=== PATIENT | female | born 1945 | race Caucasian/White ===

== ENCOUNTER → 2017-10-16 07:00 | Outpatient (CLI) | payer OTHER, SELFPAY ==
[2017-10-16 07:56] LABS: Alanine Aminotransferase 27 IU/L (9-52); Albumin Globulin Ratio 1.4 (1.0-2.8); Alkaline Phosphatase 41 U/L (38-126); Aspartate Aminotransferase 25 IU/L (14-36); BUN Creatinine Ratio 22.9 (6-22); Bilirubin Total 0.9 mg/dL (0.2-1.3); Blood Urea Nitrogen 16 mg/dL (7-17); Calcium 9.5 mg/dL (8.4-10.2); Carbon Dioxide 30 mmol/L (22-32); Chloride 101 mmol/L (98-107); Cholesterol 174 mg/dL (140-199); Estimated Glomerular Filt Rate > 60.0 mL/min (>60); Globulin 2.9 g/dL (1.7-4.1); Glucose 106 mg/dL (80-110); HDL Cholesterol 74 mg/dL (40-60); HEMOLYSIS < 15 (0-50); LDL Cholesterol Calculated 89 mg/dL (<100); Potassium 3.6 mmol/L (3.4-5.1); Sodium 141 mmol/L (137-145); Total Protein 6.9 g/dL (6.3-8.2); Triglycerides 54 mg/dL (35-150)
== END ==
PROVIDERS: PCP Internal Medicine; Visit Provider Internal Medicine
DX: E78.2 Mixed hyperlipidemia (principal)
CPT/HCPCS: 36415; 80053; 80061

== ENCOUNTER → 2017-12-11 10:00 | Outpatient (CLI) | payer OTHER, SELFPAY ==
--- NOTE | 2017-12-11 | DI.MG.S_ITS ---
BILATERAL DIGITAL SCREENING MAMMOGRAM 3D/2D WITH CAD: 12/11/2017 CLINICAL: Routine screening. Comparison is made to exams dated: 11/27/2016 mammogram, 11/26/2015 mammogram, and 11/24/2014 mammogram - [facility]. The tissue of both breasts is heterogeneously dense. This may lower the sensitivity of mammography. Current study was also evaluated with a Computer Aided Detection (CAD) system. There is a biopsy clip in the left breast. No significant masses, calcifications, or other findings are seen in either breast. There has been no significant interval change. IMPRESSION: NEGATIVE There is no mammographic evidence of malignancy. A 1 year screening mammogram is recommended. This exam was interpreted at Station ID: [id number]. NOTE: For mammograms, a report in lay terms will be sent to the patient. Approximately 15% of breast malignancies will not be visualized mammographically. In the management of a palpable breast mass, a negative mammogram must not discourage biopsy of a clinically suspicious lesion. Electronically Signed By: Guy osborn/tacho:12/11/2017 16:37:23 letter sent: Normal Exam ACR BI-RADS Category 1: Negative [id number]
== END ==
PROVIDERS: Family Provider Internal Medicine; PCP Internal Medicine; Visit Provider Internal Medicine
DX: Z12.31 Encounter for screening mammogram for malignant neoplasm of breast (principal)
CPT/HCPCS: 77063; 77067

== ENCOUNTER → 2018-01-31 11:13 | Outpatient (CLI) | payer OTHER, SELFPAY ==
[2018-01-31 11:26] LABS: Bacteria Urine None Seen; RBC Urine None Seen (0-5/HPF); WBC Urine None Seen (0-5/HPF)
[2018-01-31 12:19] LABS: Appearance Urine UA CLEAR; Bilirubin Urine UA NEGATIVE (NEGATIVE); Color Urine UA YELLOW; Glucose Urine UA NEGATIVE (Normal); Ketones Urine UA NEGATIVE (NEGATIVE); Leukocyte Esterase Urine UA NEGATIVE (NEGATIVE); Nitrite Urine UA Negative (Negative); Occult Blood Urine UA TRACE-LYSED (Negative); Protein Urine UA NEGATIVE (Negative); Urobilinogen Urine UA 0.2 E.U./dL (0.2)
[2018-01-31 12:35] LABS: Culture Indicated Urine Cult Not Indicated
== END ==
PROVIDERS: PCP Internal Medicine; Visit Provider Internal Medicine
DX: R30.0 Dysuria (principal)
CPT/HCPCS: 81001

== ENCOUNTER → 2018-04-12 08:03 | Outpatient (CLI) | payer OTHER, SELFPAY ==
[2018-04-12 09:30] LABS: Alanine Aminotransferase 29 IU/L (9-52); Albumin 4.1 g/dL (3.5-5.0); Albumin Globulin Ratio 1.4 (1.0-2.8); Alkaline Phosphatase 38 U/L (38-126); Aspartate Aminotransferase 26 IU/L (14-36); BUN Creatinine Ratio 33.3 (6-22); Bilirubin Total 0.8 mg/dL (0.2-1.3); Blood Urea Nitrogen 20 mg/dL (7-17); Calcium 9.3 mg/dL (8.4-10.2); Carbon Dioxide 32 mmol/L (22-32); Chloride 101 mmol/L (98-107); Cholesterol 169 mg/dL (140-199); Estimated Glomerular Filt Rate > 60.0 mL/min (>60); Globulin 2.9 g/dL (1.7-4.1); Glucose 98 mg/dL (80-110); HDL Cholesterol 75 mg/dL (40-60); HEMOLYSIS < 15 (0-50); LDL Cholesterol Calculated 84 mg/dL (<100); Potassium 3.8 mmol/L (3.4-5.1); Sodium 142 mmol/L (137-145); Triglycerides 49 mg/dL (35-150)
[2018-04-12 09:36] LABS: Free T4, Direct Thyroxine 1.09 ng/dL (0.78-2.19)
[2018-04-12 09:50] LABS: Thyroid Stimulating Hormone 1.55 uIU/mL (0.47-4.68)
== END ==
PROVIDERS: PCP Internal Medicine; Visit Provider Internal Medicine
DX: E03.9 Hypothyroidism, unspecified (principal); E78.2 Mixed hyperlipidemia; I10 Essential (primary) hypertension
CPT/HCPCS: 36415; 80053; 80061; 84439; 84443

== ENCOUNTER 2018-06-05 08:15 | Day surgery (SDC) | payer OTHER, SELFPAY ==
--- NOTE | 2018-06-01 13:50 | PM.PREOP ---
Pre-operative Note Interval Note History & Physical reviewed/Exam performed by Physician: Yes Changes to H&P: No
--- NOTE | 2018-06-05 07:57 | PM.OP.1 ---
Operative Date/Time/Diagnoses Date of procedure: 06/05/18 Time of procedure: 09:45 Procedure & Clinicians Procedure: Preoperative diagnoses: 1. Right nuclear sclerotic cataract 2. Astigmatism which is to be corrected with a toric intraocular lens implant. Postoperative diagnoses: 1. Cataract removal with phacoemulsification with toric posterior chamber intraocular lens implant placed. Procedure: Phacoemulsification with posterior chamber toric intraocular lens implant. Surgeon: Krystina Ocasio MD Complications: None Specimen: None Implant: [id number] +15.0 [place] 096 Blood loss: None Anesthesia: Retrobulbar with monitored standby Description of procedure: Patient presents with a complaint of decreased vision due to cataract which is affecting activities of daily living. The patient wants surgery to improve vision and astigmatism. The patient was taken to the operating room and proparacaine drops placed. Indelible ink mas were placed at the 90 and 180 degree meridian. The patient was placed on the operating room table and given IV sedation. A retrobulbar block insert consisting of 6 cc of 2% xylocaine without epinephrine mixed half and half with 0.5% Marcaine with 1 cc of hyaluronidase added is placed between the medial and lateral 1/3 of the inferior orbital rim. Lid akinesia is obtain with 1% xylocaine with epinephrine infiltrated along the lid margin. The eye is manually massaged for 30 sec, prepped using Betadine solution, and draped in the usual sterile fashion. Temporal approach was made, a 1 mm side-port incision was made 90? from the proposed corneal wound. Phenylephrine 1.5% mixed with 1% xylocaine 0.2 cc was placed into the anterior chamber. Viscoat followed by Kenyatta was then placed. A 2.6 mm clear incision with a 2.6 mm blade was placed at the 170 degree meridian. A 360 degree capsulorrhexis style capsulotomy was then performed with a cystitome needle on a Healon. Hydrodelineation and hydrodissection were performed. The phacoemulsification unit is introduced, and sculpting used to groove the central lens. It is then removed in chopping mode. Epi nucleus is removed with epinuclear mode and irrigation aspiration was used to remove the peripheral cortex. The posterior capsule is polished. The intraocular lens is selected, inspected, power confirmed, and placed in the posterior chamber at the desired meridian of 96 degrees. The pupil was not constricted. The wound was stromally hydrated and tested for leaks, there was none and it was left sutureless. Vigamox 0.1 cc was placed into the anterior chamber. Kenalog 0.2 cc was placed in the superior subconjunctival space. A drop of antibiotic and was placed and the eye was patched and shielded. The patient was stable and returned to the recovery room in excellent condition. Dictated by: Krystina Ocasio MD Copy to: [facility] Same procedure as scheduled: Yes
--- NOTE | 2018-06-05 08:00 | P.OP_ITS ---
Operative Date/Time/Diagnoses Date of procedure: 06/05/18 Time of procedure: 09:45 Procedure & Clinicians Procedure: Preoperative diagnoses: 1. Right nuclear sclerotic cataract 2. Astigmatism which is to be corrected with a toric intraocular lens implant. Postoperative diagnoses: 1. Cataract removal with phacoemulsification with toric posterior chamber intraocular lens implant placed. Procedure: Phacoemulsification with posterior chamber toric intraocular lens implant. Surgeon: Krystina Ocasio MD Complications: None Specimen: None Implant: [id number] +15.0 [place] 096 Blood loss: None Anesthesia: Retrobulbar with monitored standby Description of procedure: Patient presents with a complaint of decreased vision due to cataract which is affecting activities of daily living. The patient wants surgery to improve vision and astigmatism. The patient was taken to the operating room and proparacaine drops placed. Indelible ink mas were placed at the 90 and 180 degree meridian. The patient was placed on the operating room table and given IV sedation. A retrobulbar block insert consisting of 6 cc of 2% xylocaine without epinephrine mixed half and half with 0.5% Marcaine with 1 cc of hyaluronidase added is placed between the medial and lateral 1/3 of the inferior orbital rim. Lid akinesia is obtain with 1% xylocaine with epinephrine infiltrated along the lid margin. The eye is manually massaged for 30 sec, prepped using Betadine solution, and draped in the usual sterile fashion. Temporal approach was made, a 1 mm side-port incision was made 90? from the proposed corneal wound. Phenylephrine 1.5% mixed with 1% xylocaine 0.2 cc was p laced into the anterior chamber. Viscoat followed by Kenyatta was then placed. A 2.6 mm clear incision with a 2.6 mm blade was placed at the 170 degree meridian. A 360 degree capsulorrhexis style capsulotomy was then performed with a cystitome needle on a Healon. Hydrodelineation and hydrodissection were performed. The phacoemulsification unit is introduced, and sculpting used to groove the central lens. It is then removed in chopping mode. Epi nucleus is removed with epinuclear mode and irrigation aspiration was used to remove the peripheral cortex. The posterior capsule is polished. The intraocular lens is selected, inspected, power confirmed, and placed in the posterior chamber at the desired meridian of 96 degrees. The pupil was not constricted. The wound was stromally hydrated and tested for leaks, there was none and it was left sutureless. Vigamox 0.1 cc was placed into the anterior chamber. Kenalog 0.2 cc was placed in the superior subconjunctival space. A drop of antibiotic and was placed and the eye was patched and shielded. The patient was stable and returned to the recovery room in excellent condition. Dictated by: Krystina Ocasio MD Copy to: [facility] Same procedure as scheduled: Yes
[2018-06-05] MEDS: PROPARACAINE 0.5% OPHTH SOL 2 DROPS EYE-OP ×2 (08:57→09:32)
[2018-06-05] MEDS: CATARACT EYE COMPOUND (10 DROPS/SYRINGE) 3 DROPS EYE-OP (09:00)
[2018-06-05 09:01] VITALS: BP 139/74; PULSE 77; RESP 16; TEMP 36.3; O2SAT 987; BMI 22.3
[2018-06-05] MEDS: LIDOCAINE 1% W/EPI INJ 20 ML INJ (09:41)
[2018-06-05] MEDS: CHONDROIDTIN/SOD HYALURONATE 1.05 ML SYRINGE INTRAOCULA (09:58)
[2018-06-05] MEDS: BALANCED SALT IRRIG SOLN NO.2 15 ML IRR (09:58)
[2018-06-05] MEDS: HYALURONATE SODIUM 10 MG/ML SYRINGE INJ (09:59)
[2018-06-05] MEDS: NEOMYCIN/POLY/DEX OPHTH OINT 1 APPLIC EYE-RIGHT (10:00)
[2018-06-05] MEDS: MOXIFLOXACIN OPHTH DROPS 3 ML BOTTLE 2 DROPS INJ (10:00)
[2018-06-05] MEDS: PHENYLEPHRINE/LIDOCAINE VIAL (OR) 0.2 ML EYE-OP (10:01)
[2018-06-05] MEDS: TRIAMCINOLONE 50 MG/5 ML VIAL INJ (10:01)
[2018-06-05] MEDS: BALANCED SALT IRRIG SOLN NO.2 500 ML, EPINEPHrine 1 MG IRR (10:02)
[2018-06-05] MEDS: LIDOCAINE 2% 4 ML, BUPIVACAINE 0.5% (PF) 4 ML, HYALURONIDASE 150 UNIT INJ (10:03)
[2018-06-05] MEDS: OFLOXACIN 0.3% OPHTH 5 ML 2 DROPS EYE-RIGHT (10:15)
[2018-06-05 10:20] VITALS: BP 150/79; PULSE 76; RESP 24; TEMP 36.5; O2SAT 100
== END 2018-06-05 10:45 | disposition home or self-care (01) ==
PROVIDERS: Family Provider Internal Medicine; PCP Internal Medicine; Visit Provider Ophthalmology
PROC: (CPT 66984; principal; 2018-06-05 09:45)
DX: H25.11 Age-related nuclear cataract, right eye (principal); H52.201 Unspecified astigmatism, right eye; I10 Essential (primary) hypertension
CPT/HCPCS: 66984; J0171; J2704; J3301; J3470; V2787

== ENCOUNTER 2018-06-19 09:25 | Day surgery (SDC) | payer OTHER, SELFPAY ==
--- NOTE | 2018-06-15 14:47 | PM.PREOP ---
Pre-operative Note Interval Note History & Physical reviewed/Exam performed by Physician: Yes Changes to H&P: No
--- NOTE | 2018-06-15 14:50 | P.OP_ITS ---
Operative Date/Time/Diagnoses Date of procedure: 06/19/18 Time of procedure: 10:45 Procedure & Clinicians Procedure: Preoperative diagnoses: 1. Nuclear sclerotic cataract 2. Astigmatism which is to be corrected with a toric intraocular lens implant. Postoperative diagnoses: 1. Cataract removal with phacoemulsification with toric posterior chamber intraocular lens implant placed. Procedure: Phacoemulsification with posterior chamber toric intraocular lens i mplant. Surgeon: Krystina Ocasio MD Complications: None Specimen: None Implant: [id number]+15.5 [place] 067 Blood loss: None Anesthesia: Retrobulbar with monitored standby Description of procedure: Patient presents with a complaint of decreased vision due to cataract which is affecting activities of daily living. The patient wants surgery to improve vision and astigmatism. The patient was taken to the operating room and proparacaine drops placed. Indelible ink mas were placed at the 90 and 180 degree meridian. The patient was placed on the operating room table and given IV sedation. A retrobulbar block consisting of 6 cc of 2% xylocaine without epinephrine mixed half and half with 0.5% Marcaine with 1 cc of hyaluronidase added is placed between the medial and lateral 1/3 of the inferior orbital rim. Lid akinesia is obtain with 1% xylocaine with epinephrine infiltrated along the lid margin. The eye is manually massaged for 30 sec, prepped using Betadine solution, and draped in the usual sterile fashion. Temporal approach was made, a 1 mm side-port incision was made 90? from the proposed corneal wound. Phenylephrine 1.5% mixed with 1% xylocaine 0.2 cc was placed into the anterior chamber. Viscoat followed by Kenyatta was then placed. A 2.6 mm clear incision with a 2.6 mm blade was placed at the 170 degree meridian. A 360 degree capsulorrhexis style capsulotomy was then performed with a cystitome needle on a Healon. Hydrodelineation and hydrodissection were performed. The phacoemulsification unit is introduced, and sculpting used to groove the central lens. It is then removed in chopping mode. Epi nucleus is removed with epinuclear mode and irrigation aspiration was used to remove the peripheral cortex. The posterior capsule is polished. The intraocular lens is selected, inspected, power confirmed, and placed in the posterior chamber at the desired meridian of 067?. The pupil was not constricted. The wound was stromally hydrated and tested for leaks, there was none and it was left sutureless. Vigamox 0.1 cc was placed into the anterior chamber. Kenalog 0.2 cc was placed in the superior subconjunctival space. A bandage contact lens was placed to smooth the sideport incision. A drop of antibiotic and was placed and the eye was patched and shielded. The patient was stable and returned to the recovery room in excellent condition. Dictated by: Krystina Ocasio MD Copy to: [facility]
[2018-06-19] MEDS: PROPARACAINE 0.5% OPHTH SOL 2 DROPS EYE-OP (10:05)
[2018-06-19 10:14] VITALS: BP 173/76; PULSE 56; RESP 15; TEMP 36.4; O2SAT 99; BMI 22.6
[2018-06-19] MEDS: CATARACT EYE COMPOUND (10 DROPS/SYRINGE) 3 DROPS EYE-OP (10:21)
[2018-06-19] MEDS: MOXIFLOXACIN OPHTH DROPS 3 ML BOTTLE 2 DROPS INJ (10:59)
[2018-06-19] MEDS: PHENYLEPHRINE/LIDOCAINE VIAL (OR) 0.2 ML EYE-OP (10:59)
[2018-06-19] MEDS: HYALURONATE SODIUM 10 MG/ML SYRINGE INJ (11:00)
[2018-06-19] MEDS: TRIAMCINOLONE 50 MG/5 ML VIAL INJ (11:00)
[2018-06-19] MEDS: NEOMYCIN/POLY/DEX OPHTH OINT 1 APPLIC EYE-LEFT (11:00)
[2018-06-19] MEDS: BALANCED SALT IRRIG SOLN NO.2 15 ML IRR (11:00)
[2018-06-19] MEDS: CHONDROIDTIN/SOD HYALURONATE 1.05 ML SYRINGE INTRAOCULA (11:00)
[2018-06-19] MEDS: BALANCED SALT IRRIG SOLN NO.2 500 ML, EPINEPHrine 1 MG IRR (11:01)
[2018-06-19] MEDS: LIDOCAINE 1% W/EPI INJ 20 ML INJ (11:01)
[2018-06-19] MEDS: LIDOCAINE 2% 4 ML, BUPIVACAINE 0.5% (PF) 4 ML, HYALURONIDASE 150 UNIT INJ (11:02)
[2018-06-19] MEDS: OFLOXACIN 0.3% OPHTH 5 ML 2 DROPS EYE-LEFT (11:21)
[2018-06-19 11:29] VITALS: BP 157/76; PULSE 67; RESP 15; TEMP 36.6; O2SAT 100
== END 2018-06-19 11:41 | disposition home or self-care (01) ==
LOC: OR 09:25
PROVIDERS: PCP Internal Medicine; Visit Provider Ophthalmology
DX: H25.12 Age-related nuclear cataract, left eye (principal); H52.202 Unspecified astigmatism, left eye
CPT/HCPCS: J0171; J2704; J3301; J3470; V2787

== ENCOUNTER 2018-10-24 08:26 | Emergency (ER) | payer OTHER, SELFPAY ==
[2018-10-24 08:37] VITALS: BP 195/77; PULSE 72; RESP 20; TEMP 36.4; O2SAT 99
--- NOTE | 2018-10-24 08:40 | ED.GENADULT ---
HPI - General Adult General Chief complaint: Hypertension Stated complaint: HIGH BLOOD PRESSURE Time Seen by Provider: 10/24/18 08:32 Source: patient Mode of arrival: ambulatory Limitations: no limitations History of Present Illness HPI narrative: Patient is a 73-year-old female who presents with hypertension. She says she thought that her blood pressure was high because she was a little dizzy. She had no chest pain heart palpitations or shortness of breath. She says she normally just takes hydrochlorothiazide her blood pressure is typically controlled with a systolic of 130. However she ate sees and shrimp with a lot of salt on it last night. She took her blood pressure few times at home today systolic always over 180 with a high being 200. She came to the emergency department. Still not feeling great. Denies any weakness numbness tingling Related Data Home Medications Medication Instructions Recorded Confirmed omega 3-zny-xya-fish oil [Fish Oil] 1,000 mg PO DAILY #0 04/05/11 10/24/18 multivitamin with minerals 1 tab PO DAILY #0 04/14/16 10/24/18 [Hair,Skin and Nails] Metamucil 1 cap PO Q OTHER DAY 10/24/18 10/24/18 alendronate 70 mg PO QWEEK 10/24/18 10/24/18 atorvastatin [Lipitor] 20 mg PO BEDTIME 10/24/18 10/24/18 calcium vxy-ybv-A6-Zn-helicopter utility aircrewman-caprice 1 tab PO DAILY 10/24/18 10/24/18 hydrochlorothiazide 25 mg PO DAILY 10/24/18 10/24/18 levothyroxine [Synthroid] 50 mcg PO DAILY 10/24/18 10/24/18 Allergies Allergy/AdvReac Type Severity Reaction Status Date / Time prochlorperazine Allergy Mild DYSTONIA Verified 06/19/18 10:07 ciprofloxacin AdvReac Unknown JOINT PAIN Verified 06/19/18 10:07 Review of Systems Review of Systems ROS Unobtainable: All systems reviewed & are unremarkable except as noted in HPI and below Constitutional Denies chills, Denies fever(s), Denies lethargy and Denies weakness Eyes Denies change in vision, Denies eye discharge, Denies irritation and Denies loss of vision ENT Ears, Nose, Mouth, and Throat: Denies change in voice, Reports dizziness, Denies neck pain and Denies sore throat Cardiovascular Denies chest pain, Denies irregular heart rhythm, Denies lightheadedness, Denies palpitations, Denies dyspnea, Denies dyspnea on exertion and Denies orthopnea Respiratory Denies cough, Denies dyspnea, Denies dyspnea on exertion and Denies wheezing Gastrointestinal Gastrointestinal: Denies abdominal pain, Denies change in bowel habits, Denies diarrhea, Denies nausea and Denies vomiting Musculoskeletal Denies neck pain Integumentary/Breasts Denies pruritus, Denies erythema, Denies rash and Denies wounds Neurologic Reports dizziness, Denies loss of vision and Denies weakness Endocrine Denies palpitations Allergic/Immunologic Denies wheezing [facility] Medical History Essential hypertension (Chronic) Acquired hypothyroidism (Chronic 04/13/15) Mixed hyperlipidemia (Chronic 04/05/11) 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) Mitral valve prolapse (Chronic 04/05/11) History of adenomatous polyp of colon (Inactive 04/05/11) Diverticulosis of large intestine (Chronic) Hearing loss (Chronic ~2012) Osteopenia (Chronic ~1995) Rosacea (Chronic ~1986) Vision disorder (Chronic) Acne (Resolved ~1956) Chicken pox (Resolved) Measles (Resolved) Rubella (Resolved) Thyroid nodule (Resolved ~1996) History of pre-eclampsia (Inactive) Surgical History Anesthesia (Resolved) Fractures (Resolved ~1981) History of thyroidectomy (~2002) Status post delivery (~1969) Status post delivery (~1970) Family History Father Rheumatoid arthritis Mother No problems noted. Social History household members: none Smoking Status: Never smoker Family History Father Rheumatoid arthritis Mother No problems noted. Social History household members: none Smoking Status: Never smoker Exam Initial Vital Signs Initial Vital Signs: Vital Signs Temperature 97.6 F 10/24/18 08:37 Pulse Rate 72 10/24/18 08:37 Respiratory Rate 20 10/24/18 08:37 Blood Pressure 195/77 H 10/24/18 08:37 Pulse Oximetry 99 10/24/18 08:37 GENERAL: Well-appearing, well-nourished and in no acute distress. HEENT: Head atraumatic,EOMI, pupils reactive, face symmetric, moist mucous membranes CARDIOVASCULAR: Regular rate and rhythm without murmurs, rubs or gallops. RESPIRATORY: Breath sounds equal bilaterally, no wheezes rales or rhonchi. ABDOMEN: Soft, nontender. Normoactive bowel sounds all 4 quadrants. No guarding or rebound. EXTREMITIES: Normal range of motion, no clubbing or edema. Neurovascularly intact NEUROLOGICAL: Alert and oriented x4.Normal gait and speech. Cranial nerves II through XII grossly intact. Childcare Attendant strength equal bilaterally SKIN: Warm, dry, no laceration, no petechiae, no rashes or lesions. Course Orders Ordered: ED Orders 10/24/18 09:30 Complete Blood Count AUTO DIFF Stat Comprehensive Metabolic Panel Stat Lipase Stat Troponin & CK Cardiac Panel Stat Vital Signs - 8 hr 10/24/18 08:37 10/24/18 09:00 10/24/18 09:30 Temperature 97.6 F Pulse Rate 72 59 L 59 L Respiratory Rate 20 18 18 Blood Pressure 195/77 H Blood Pressure [Right Arm] 175/70 H 163/65 H Pulse Oximetry 99 97 99 10/24/18 10:21 10/24/18 11:05 10/24/18 11:10 Temperature Pulse Rate 61 57 L 57 L Respiratory Rate 15 18 18 Blood Pressure 178/66 H Blood Pressure [Right Arm] 163/65 H 178/66 H Pulse Oximetry 100 99 99 Medical Decision Making Lab Data Lab results reviewed: Yes I reviewed the patient's lab results. Result diagrams: 10/24/18 09:30 10/24/18 09:30 Lab Results 10/24/18 10/24/18 Range/Units 09:30 09:30 WBC 4.9 (4.5-11.0) X10^3/uL RBC 4.32 (4.0-5.2) X10^6/uL Hgb 14.0 (12.0-16.0) g/dL Hct 41.2 (36-46) % MCV 95.3 (80-100) fL MCH 32.4 (26-34) PG MCHC 34.0 (30-36) % RDW 13.7 (11.6-14.8) % Plt Count 268 (150-400) X10^3/uL Neut % (Auto) 65.4 (50-75) % Lymph % (Auto) 22.9 L (25-40) % Summers % (Auto) 10.3 (3-14) % Eos % (Auto) 0.9 L (2-4) % Baso % (Auto) 0.5 (0-2) % Neut # (Auto) 3200 (8077-5663) /uL Lymph # (Auto) 1100 (2025-2763) /uL Summers # (Auto) 500 (0-900) /uL Eos # (Auto) 0 (0-450) /uL Baso # (Auto) 0 (0-100) /uL Sodium 139 (137-145) mmol/L Potassium 4.0 (3.4-5.1) mmol/L Chloride 102 (98-107) mmol/L Carbon Dioxide 31 (22-32) mmol/L BUN 17 (7-17) mg/dL Creatinine 0.50 L (0.52-1.04) mg/dL Estimated GFR > 60.0 (>60) mL/min BUN/Creatinine Ratio 34.0 H (6-22) Glucose 128 H (80-110) mg/dL Calcium 9.0 (8.4-10.2) mg/dL Total Bilirubin 0.7 (0.2-1.3) mg/dL AST 21 (14-36) IU/L ALT 14 (9-52) IU/L Alkaline Phosphatase 42 (38-126) U/L Total Creatine Kinase 76 (30-135) U/L CK-MB (CK-2) TNP CK-MB (CK-2) Rel Index TNP Troponin I < 0.012 (0.01-0.034) ng/mL Total Protein 7.1 (6.3-8.2) g/dL Albumin 4.1 (3.5-5.0) g/dL Globulin 3.0 (1.7-4.1) g/dL Albumin/Globulin Ratio 1.4 (1.0-2.8) Lipase 58 (23-300) U/L Urine Dip Bedside Urine Glucose Negative Bedside Urine Bilirubin - Negative Bedside Urine Ketone - Negative Urine Specific [place] 1.015 Bedside Urine Occult Blood - Negative Bedside Urine pH 6.5 Bedside Urine Protein - Negative Bedside Urine Urobilinogen - Negative Bedside Urine Nitrite - Negative Bedside Urine Leukocytes - Negative Esterase Point of care testing: Urine Dip Bedside Urine Glucose Negative Bedside Urine Bilirubin - Negative Bedside Urine Ketone - Negative Urine Specific [place] 1.015 Bedside Urine Occult Blood - Negative Bedside Urine pH 6.5 Bedside Urine Protein - Negative Bedside Urine Urobilinogen - Negative Bedside Urine Nitrite - Negative Bedside Urine Leukocytes - Negative Esterase ECG Data Attestation: I personally reviewed and interpreted this ECG as follows: Prior ECG tracings: not available for review Interpretation: Normal sinus rhythm rate [address] changes AL interval 219 MDM Narrative Medical decision making narrative: Patient is noted to have PVCs on monitor. They are intermittent she is asymptomatic. I did discuss this with her. Recommending following up with her PCP. Her blood pressure has come down without any sort of intervention. I recommend that she recorded contract for blood pressure home. Discharge Plan Departure Patient Disposition: Home Clinical Impression: Asymptomatic PVCs Hypertension Qualifiers: Hypertension type: essential hypertension Qualified Code(s): I10 - Essential (primary) hypertension Discharge Date/Time: 10/24/18 11:10 Interventions: ED Discharge Assessment Last Done: 10/24/18 11:10 Instructions: Premature Ventricular Beats, DI for High Blood Pressure Activity Restrictions/Additional Instructions: *You have been diagnosed with hypertension, PVC *What to do: At this time her blood pressure has come down in the emergency department to an acceptable level. I recommend that you continue to monitor at home. I recommend checking it 1-2 times daily same time every day either 1st thing in the morning or last thing before bed. Your blood pressure medication may need to be adjusted this is something that year PCP should do. *Continue to take medications as directed *Follow up with your primary care provider in 2-3 days *Return to ER if you should have dizziness lightheadedness chest pain heart palpitations or any new, worsening or concerning symptoms Prescriptions: No Action omega 6-kiy-ccr-fish oil [Fish Oil] 1,000 MG capsule 1,000 mg PO DAILY Qty: 0 RF: 0 multivitamin with minerals [Hair,Skin and Nails] Tablet 1 tab PO DAILY Qty: 0 RF: 0 alendronate 70 mg Tablet 70 mg PO QWEEK RF: 0 atorvastatin [Lipitor] 20 mg tablet 20 mg PO BEDTIME RF: 0 levothyroxine [Synthroid] 50 mcg tablet 50 mcg PO DAILY RF: 0 hydrochlorothiazide 25 mg tablet 25 mg PO DAILY RF: 0 Metamucil 1 cap PO Q OTHER DAY RF: 0 calcium otq-dbn-H5-Zn-helicopter utility aircrewman-caprice 1 tab PO DAILY RF: 0 Referrals: Marbin Grove MD [Primary Care Provider] -
[2018-10-24 09:00] VITALS: BP 175/70; PULSE 59; RESP 18; O2SAT 97
--- NOTE | 2018-10-24 09:25 | ED_ITS ---
HPI - General Adult General Chief complaint: Hypertension Stated complaint: HIGH BLOOD PRESSURE Time Seen by Provider: 10/24/18 08:32 Source: patient Mode of arrival: ambulatory Limitations: no limitations History of Present Illness HPI narrative: Patient is a 73-year-old female who presents with hypertension. She says she thought that her blood pressure was high because she was a little dizzy. She had no chest pain heart palpitations or shortness of breath. She says she normally just takes hydrochlorothiazide her blood pressure is typically controlled with a systolic of 130. However she ate sees and shrimp with a lot of salt on it last night. She took her blood pressure few times at home today systolic always over 180 with a high being 200. She came to the emergency department. Still not feeling great. Denies any weakness numbness tingling Related Data Home Medications Medication Instructions Recorded Confirmed omega 5-hfl-ndv-fish oil [Fish Oil] 1,000 mg PO DAILY #0 04/05/11 10/24/18 multivitamin with minerals 1 tab PO DAILY #0 04/14/16 10/24/18 [Hair,Skin and Nails] Metamucil 1 cap PO Q OTHER DAY 10/24/18 10/24/18 alendronate 70 mg PO QWEEK 10/24/18 10/24/18 atorvastatin [Lipitor] 20 mg PO BEDTIME 10/24/18 10/24/18 calcium nfx-qts-U3-Zn-copper miner blasting-caprice 1 tab PO DAILY 10/24/18 10/24/18 hydrochlorothiazide 25 mg PO DAILY 10/24/18 10/24/18 levothyroxine [Synthroid] 50 mcg PO DAILY 10/24/18 10/24/18 Allergies Allergy/AdvReac Type Severity Reaction Status Date / Time prochlorperazine Allergy Mild DYSTONIA Verified 06/19/18 10:07 ciprofloxacin AdvReac Unknown JOINT PAIN Verified 06/19/18 10:07 Review of Systems Review of Systems ROS Unobtainable: All systems reviewed & are unremarkable except as noted in HPI and below Constitutional Denies chills, Denies fever(s), Denies lethargy and Denies weakness Eyes Denies change in vision, Denies eye discharge, Denies irritation and Denies loss of vision ENT Ears, Nose, Mouth, and Throat: Denies change in voice, Reports dizziness, Denies neck pain and Denies sore throat Cardiovascular Denies chest pain, Denies irregular heart rhythm, Denies lightheadedness, Denies palpitations, Denies dyspnea, Denies dyspnea on exertion and Denies orthopnea Respiratory Denies cough, Denies dyspnea, Denies dyspnea on exertion and Denies wheezing Gastrointestinal Gastrointestinal: Denies abdominal pain, Denies change in bowel habits, Denies diarrhea, Denies nausea and Denies vomiting Musculoskeletal Denies neck pain Integumentary/Breasts Denies pruritus, Denies erythema, Denies rash and Denies wounds Neurologic Reports dizziness, Denies loss of vision and Denies weakness Endocrine Denies palpitations Allergic/Immunologic Denies wheezing [facility] Medical History Essential hypertension (Chronic) Acquired hypothyroidism (Chronic 04/13/15) Mixed hyperlipidemia (Chronic 04/05/11) 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) Mitral valve prolapse (Chronic 04/05/11) History of adenomatous polyp of colon (Inactive 04/05/11) Diverticulosis of large intestine (Chronic) Hearing loss (Chronic ~2012) Osteopenia (Chronic ~1995) Rosacea (Chronic ~1986) Vision disorder (Chronic) Acne (Resolved ~1956) Chicken pox (Resolved) Measles (Resolved) Rubella (Resolved) Thyroid nodule (Resolved ~1996) History of pre-eclampsia (Inactive) Surgical History Anesthesia (Resolved) Fractures (Resolved ~1981) History of thyroidectomy (~2002) Status post delivery (~1969) Status post delivery (~1970) Family History Father Rheumatoid arthritis Mother No problems noted. Social History household members: none Smoking Status: Never smoker Family History Father Rheumatoid arthritis Mother No problems noted. Social History household members: none Smoking Status: Never smoker Exam Initial Vital Signs Initial Vital Signs: Vital Signs Temperature 97.6 F 10/24/18 08:37 Pulse Rate 72 10/24/18 08:37 Respiratory Rate 20 10/24/18 08:37 Blood Pressure 195/77 H 10/24/18 08:37 Pulse Oximetry 99 10/24/18 08:37 GENERAL: Well-appearing, well-nourished and in no acute distress. HEENT: Head atraumatic,EOMI, pupils reactive, face symmetric, moist mucous membranes CARDIOVASCULAR: Regular rate and rhythm without murmurs, rubs or gallops. RESPIRATORY: Breath sounds equal bilaterally, no wheezes rales or rhonchi. ABDOMEN: Soft, nontender. Normoactive bowel sounds all 4 quadrants. No guarding or rebound. EXTREMITIES: Normal range of motion, no clubbing or edema. Neurovascularly intact NEUROLOGICAL: Alert and oriented x4.Normal gait and speech. Cranial nerves II through XII grossly intact. Command And Control Specialist strength equal bilaterally SKIN: Warm, dry, no laceration, no petechiae, no rashes or lesions. Course Orders Ordered: ED Orders 10/24/18 09:30 Complete Blood Count AUTO DIFF Stat Comprehensive Metabolic Panel Stat Lipase Stat Troponin & CK Cardiac Panel Stat Vital Signs - 8 hr 10/24/18 08:37 10/24/18 09:00 10/24/18 09:30 Temperature 97.6 F Pulse Rate 72 59 L 59 L Respiratory Rate 20 18 18 Blood Pressure 195/77 H Blood Pressure [Right Arm] 175/70 H 163/65 H Pulse Oximetry 99 97 99 10/24/18 10:21 10/24/18 11:05 10/24/18 11:10 Temperature Pulse Rate 61 57 L 57 L Respiratory Rate 15 18 18 Blood Pressure 178/66 H Blood Pressure [Right Arm] 163/65 H 178/66 H Pulse Oximetry 100 99 99 Medical Decision Making Lab Data Lab results reviewed: Yes I reviewed the patient's lab results. Result diagrams: 10/24/18 09:30 10/24/18 09:30 Lab Results 10/24/18 10/24/18 Range/Units 09:30 09:30 WBC 4.9 (4.5-11.0) X10^3/uL RBC 4.32 (4.0-5.2) X10^6/uL Hgb 14.0 (12.0-16.0) g/dL Hct 41.2 (36-46) % MCV 95.3 (80-100) fL MCH 32.4 (26-34) PG MCHC 34.0 (30-36) % RDW 13.7 (11.6-14.8) % Plt Count 268 (150-400) X10^3/uL Neut % (Auto) 65.4 (50-75) % Lymph % (Auto) 22.9 L (25-40) % [place] % (Auto) 10.3 (3-14) % Eos % (Auto) 0.9 L (2-4) % Baso % (Auto) 0.5 (0-2) % Neut # (Auto) 3200 (9943-4982) /uL Lymph # (Auto) 1100 (7640-9582) /uL [place] # (Auto) 500 (0-900) /uL Eos # (Auto) 0 (0-450) /uL Baso # (Auto) 0 (0-100) /uL Sodium 139 (137-145) mmol/L Potassium 4.0 (3.4-5.1) mmol/L Chloride 102 (98-107) mmol/L Carbon Dioxide 31 (22-32) mmol/L BUN 17 (7-17) mg/dL Creatinine 0.50 L (0.52-1.04) mg/dL Estimated GFR > 60.0 (>60) mL/min BUN/Creatinine Ratio 34.0 H (6-22) Glucose 128 H (80-110) mg/dL Calcium 9.0 (8.4-10.2) mg/dL Total Bilirubin 0.7 (0.2-1.3) mg/dL AST 21 (14-36) IU/L ALT 14 (9-52) IU/L Alkaline Phosphatase 42 (38-126) U/L Total Creatine Kinase 76 (30-135) U/L CK-MB (CK-2) TNP CK-MB (CK-2) Rel Index TNP Troponin I < 0.012 (0.01-0.034) ng/mL Total Protein 7.1 (6.3-8.2) g/dL Albumin 4.1 (3.5-5.0) g/dL Globulin 3.0 (1.7-4.1) g/dL Albumin/Globulin Ratio 1.4 (1.0-2.8) Lipase 58 (23-300) U/L Urine Dip Bedside Urine Glucose Negative Bedside Urine Bilirubin - Negative Bedside Urine Ketone - Negative Urine Specific [place] 1.015 Bedside Urine Occult Blood - Negative Bedside Urine pH 6.5 Bedside Urine Protein - Negative Bedside Urine Urobilinogen - Negative Bedside Urine Nitrite - Negative Bedside Urine Leukocytes - Negative Esterase Point of care testing: Urine Dip Bedside Urine Glucose Negative Bedside Urine Bilirubin - Negative Bedside Urine Ketone - Negative Urine Specific [place] 1.015 Bedside Urine Occult Blood - Negative Bedside Urine pH 6.5 Bedside Urine Protein - Negative Bedside Urine Urobilinogen - Negative Bedside Urine Nitrite - Negative Bedside Urine Leukocytes - Negative Esterase ECG Data Attestation: I personally reviewed and interpreted this ECG as follows: Prior ECG tracings: not available for review Interpretation: Normal sinus rhythm rate [address] changes NV interval 219 MDM Narrative Medical decision making narrative: Patient is noted to have PVCs on monitor. They are intermittent she is asymptomatic. I did discuss this with her. Recomm ending following up with her PCP. Her blood pressure has come down without any sort of intervention. I recommend that she recorded contract for blood pressure home. Discharge Plan Departure Patient Disposition: Home Clinical Impression: Asymptomatic PVCs Hypertension Qualifiers: Hypertension type: essential hypertension Qualified Code(s): I10 - Essential (primary) hypertension Discharge Date/Time: 10/24/18 11:10 Interventions: ED Discharge Assessment Last Done: 10/24/18 11:10 Instructions: Premature Ventricular Beats, DI for High Blood Pressure Activity Restrictions/Additional Instructions: *You have been diagnosed with hypertension, PVC *What to do: At this time her blood pressure has come down in the emergency department to an acceptable level. I recommend that you continue to monitor at home. I recommend checking it 1-2 times daily same time every day either 1st thing in the morning or last thing before bed. Your blood pressure medication may need to be adjusted this is something that year PCP should do. *Continue to take medications as directed *Follow up with your primary care provider in 2-3 days *Return to ER if you should have dizziness lightheadedness chest pain heart palpitations or any new, worsening or concerning symptoms Prescriptions: No Action omega 8-hic-aeb-fish oil [Fish Oil] 1,000 MG capsule 1,000 mg PO DAILY Qty: 0 RF: 0 multivitamin with minerals [Hair,Skin and Nails] Tablet 1 tab PO DAILY Qty: 0 RF: 0 alendronate 70 mg Tablet 70 mg PO QWEEK RF: 0 atorvastatin [Lipitor] 20 mg tablet 20 mg PO BEDTIME RF: 0 levothyroxine [Synthroid] 50 mcg tablet 50 mcg PO DAILY RF: 0 hydrochlorothiazide 25 mg tablet 25 mg PO DAILY RF: 0 Metamucil 1 cap PO Q OTHER DAY RF: 0 calcium zmf-ohw-B1-Zn-copper miner blasting-caprice 1 tab PO DAILY RF: 0 Referrals: Marbin Grove MD [Primary Care Provider] -
[2018-10-24 09:30] VITALS: BP 163/65; PULSE 59; RESP 18; O2SAT 99
[2018-10-24 09:37] LABS: Add Manual Diff / Slide Review NO; Basophils Absolute Auto 0 /uL (0-100); Basophils Percent Auto 0.5 % (0-2); Eosinophils Absolute Auto 0 /uL (0-450); Eosinophils Percent Auto 0.9 % (2-4); Hematocrit 41.2 % (36-46); Lymphocytes Absolute Auto 1100 /uL (1100-4500); Lymphocytes Percent Auto 22.9 % (25-40); Mean Corpuscular Hemoglobin 32.4 PG (26-34); Mean Corpuscular Volume 95.3 fL (80-100); Monocytes Absolute Auto 500 /uL (0-900); Monocytes Percent Auto 10.3 % (3-14); Neutrophils Absolute Auto 3200 /uL (1500-7000); Neutrophils Percent Auto 65.4 % (50-75); Platelet Count 268 X10^3/uL (150-400); Red Blood Cell Count 4.32 X10^6/uL (4.0-5.2); Red Cell Distribution Width 13.7 % (11.6-14.8); White Blood Cell Count 4.9 X10^3/uL (4.5-11.0)
[2018-10-24 09:49] LABS: Alanine Aminotransferase 14 IU/L (9-52); Albumin 4.1 g/dL (3.5-5.0); Albumin Globulin Ratio 1.4 (1.0-2.8); Alkaline Phosphatase 42 U/L (38-126); Aspartate Aminotransferase 21 IU/L (14-36); Bilirubin Total 0.7 mg/dL (0.2-1.3); Blood Urea Nitrogen 17 mg/dL (7-17); Carbon Dioxide 31 mmol/L (22-32); Chloride 102 mmol/L (98-107); Creatine Kinase 76 U/L (30-135); Estimated Glomerular Filt Rate > 60.0 mL/min (>60); Glucose 128 mg/dL (80-110); HEMOLYSIS < 15 (0-50); Lipase 58 U/L (23-300); Sodium 139 mmol/L (137-145); Total Protein 7.1 g/dL (6.3-8.2)
[2018-10-24 10:01] LABS: Troponin I < 0.012 ng/mL (0.01-0.034)
[2018-10-24 10:21] VITALS: BP 163/65; PULSE 61; RESP 15; O2SAT 100
[2018-10-24 11:05] VITALS: BP 178/66; PULSE 57; RESP 18; O2SAT 99
[2018-10-24 11:10] VITALS: BP 178/66; PULSE 57; RESP 18; O2SAT 99
== END 2018-10-24 11:10 | disposition home or self-care (01) ==
PROVIDERS: Emergency Provider Emergency Medicine; PCP Internal Medicine
DX: I49.3 Ventricular premature depolarization (principal); I10 Essential (primary) hypertension
CPT/HCPCS: 36591; 80053; 81003; 82550; 83690; 84484; 85025; 93005; 93010; 99283; 99284

== ENCOUNTER → 2018-12-19 10:52 | Outpatient (CLI) | payer OTHER, SELFPAY ==
--- NOTE | 2018-12-19 | DI.MG.S_ITS ---
BILATERAL DIGITAL SCREENING MAMMOGRAM 3D/2D WITH CAD: 12/19/2018 CLINICAL: Routine screening. Comparison is made to exams dated: 12/11/2017 mammogram, 11/27/2016 mammogram, and 11/26/2015 mammogram - [facility]. There are scattered fibroglandular elements in both breasts. Current study was also evaluated with a Computer Aided Detection (CAD) system. There is a benign biopsy clip in the left breast. No significant masses, calcifications, or other findings are seen in either breast. There has been no significant interval change. IMPRESSION: NEGATIVE There is no mammographic evidence of malignancy. A 1 year screening mammogram is recommended. This exam was interpreted at Station ID: [id number]. NOTE: For mammograms, a report in lay terms will be sent to the patient. Approximately 15% of breast malignancies will not be visualized mammographically. In the management of a palpable breast mass, a negative mammogram must not discourage biopsy of a clinically suspicious lesion. Electronically Signed By: Tim crawford/tacho:12/19/2018 12:15:43 letter sent: Normal Exam ACR BI-RADS Category 1: Negative [id number]
== END ==
PROVIDERS: PCP Internal Medicine; Visit Provider Internal Medicine
DX: Z12.31 Encounter for screening mammogram for malignant neoplasm of breast (principal)
CPT/HCPCS: 77063; 77067

== ENCOUNTER → 2019-05-01 07:03 | Outpatient (CLI) | payer MEDICARE, SELFPAY ==
[2019-05-01 08:57] LABS: Alanine Aminotransferase 16 IU/L (<35); Albumin Globulin Ratio 1.5 (1.0-2.8); Alkaline Phosphatase 44 U/L (38-126); Aspartate Aminotransferase 24 IU/L (14-36); BUN Creatinine Ratio 35.7 (6-22); Bilirubin Total 0.5 mg/dL (0.2-1.3); Blood Urea Nitrogen 25 mg/dL (7-17); Calcium 9.3 mg/dL (8.4-10.2); Carbon Dioxide 32 mmol/L (22-32); Chloride 103 mmol/L (98-107); Cholesterol 183 mg/dL (140-199); Estimated Glomerular Filt Rate > 60.0 mL/min (>60); Globulin 2.6 g/dL (1.7-4.1); Glucose 102 mg/dL (80-110); HDL Cholesterol 68 mg/dL (40-60); HEMOLYSIS < 15 (0-50); LDL Cholesterol Calculated 106 mg/dL (<100); Sodium 141 mmol/L (137-145); Total Protein 6.6 g/dL (6.3-8.2); Triglycerides 43 mg/dL (35-150)
[2019-05-01 09:14] LABS: Free T4, Direct Thyroxine 1.23 ng/dL (0.78-2.19)
[2019-05-01 09:28] LABS: Thyroid Stimulating Hormone 1.91 uIU/mL (0.47-4.68)
== END ==
PROVIDERS: PCP Internal Medicine; Visit Provider Internal Medicine
DX: E03.9 Hypothyroidism, unspecified (principal); E78.2 Mixed hyperlipidemia; I10 Essential (primary) hypertension
CPT/HCPCS: 36415; 80053; 80061; 84439; 84443

== ENCOUNTER 2019-06-08 15:22 | Emergency (ER) | payer MEDICARE, SELFPAY ==
[2019-06-08 15:30] VITALS: BP 178/90; PULSE 90; RESP 20; TEMP 36.8; O2SAT 99
[2019-06-08 15:56] LABS: Appearance Urine UA SL CLOUDY; Bilirubin Urine UA NEGATIVE (NEGATIVE); Glucose Urine UA NEGATIVE (Negative); Ketones Urine UA NEGATIVE (NEGATIVE); Leukocyte Esterase Urine UA 3+ (NEGATIVE); Nitrite Urine UA NEGATIVE (Negative); Occult Blood Urine UA 3+ (Negative); Protein Urine UA 1+ (Negative); Specific Gravity Urine UA <=1.005 (1.000-1.035); Urobilinogen Urine UA 0.2 E.U./dL (0.2)
[2019-06-08 15:58] LABS: Color Urine UA OTHER; pH Urine UA 7.5 (4.5-8.0)
[2019-06-08 16:10] LABS: Bacteria Urine Moderate (10-30); Culture Indicated Urine Specimen Cultured; RBC Urine 30-100/HPF (0-5/HPF); WBC Urine >100/HPF (0-5/HPF)
--- NOTE | 2019-06-08 16:14 | ED.GENADULT ---
HPI - General Adult General Chief complaint: Hypertension Stated complaint: High Blood Pressure Time Seen by Provider: 06/08/19 15:35 Source: patient Mode of arrival: Ambulatory Limitations: no limitations History of Present Illness HPI narrative: 74-year-old female nonsmoker with history of hyperlipidemia and hypertension presents with a chief complaint of dysuria, frequency and urgency for the past few days in the absence of back pain, fever, chills nor nausea or vomiting. Additionally, and perhaps more important to the patient is some brief dizziness prior to her arrival associated with elevated blood pressure in the 200s. She states that she takes hydrochlorothiazide for her blood pressure and has not missed any doses. She states that she has had episodes in the past which are similar and her primary care provider suggest that she is highly sensitive to the blood pressure affects of high sodium intake. She does admit to some dietary indiscretions over the past few days. She is otherwise asymptomatic here in the emergency department and denies any headache or blurred vision or any focal neurologic findings chest pain or other. Onset (ago): minute(s) Treatments prior to arrival: none Related Data Home Medications Medication Instructions Recorded Confirmed omega 6-aid-vob-fish oil [Fish Oil] 1,000 mg PO DAILY #0 04/05/11 05/06/19 Metamucil 1 cap PO Q OTHER DAY 10/24/18 05/06/19 atorvastatin [Lipitor] 20 mg PO BEDTIME 10/24/18 05/06/19 calcium hjr-ucq-R7-Zn-picture copyist-caprice 1 tab PO DAILY 10/24/18 05/06/19 Previous Rx's Medication Instructions Recorded hydrochlorothiazide 25 mg tablet 25 mg PO DAILY #90 tab 01/09/19 alendronate 70 mg tablet 70 mg PO QWEEK #12 tab 04/15/19 levothyroxine 50 mcg tablet See Rx Instructions .ROUTE 04/15/19 .COMPLEX #90 tablet cephalexin [Keflex] 500 mg PO QID 5 Days #20 cap 06/08/19 Allergies Allergy/AdvReac Type Severity Reaction Status Date / Time prochlorperazine Allergy Mild DYSTONIA Verified 05/06/19 09:27 ciprofloxacin AdvReac Unknown JOINT PAIN Verified 05/06/19 09:27 Review of Systems Constitutional Constitutional: Denies chills, Denies fatigue, Denies fever(s), Denies frequent falls, Denies lethargy and Denies weakness Eyes Eyes: Denies change in vision, Denies eye discharge, Denies irritation and Denies loss of vision ENT Ears, Nose, Mouth, and Throat: Denies change in voice, Reports dizziness, Denies neck pain, Denies sore throat and Denies throat swelling Cardiovascular Cardiovascular: Denies chest pain, Denies irregular heart rhythm, Denies lightheadedness, Denies palpitations, Denies dyspnea, Denies dyspnea on exertion and Denies orthopnea Respiratory Respiratory: Denies cough, Denies dyspnea, Denies dyspnea on exertion and Denies wheezing Gastrointestinal Gastrointestinal: Denies abdominal pain, Denies change in bowel habits, Denies diarrhea, Denies nausea and Denies vomiting Genitourinary Genitourinary: Denies hematuria, Reports dysuria, Denies flank pain, Denies urinary incontinence and Reports urinary urgency Musculoskeletal Musculoskeletal: Denies back pain, Denies muscle weakness, Denies neck pain, Denies numbness and Denies tingling Integumentary/Breasts Skin/Breast: Denies pruritus, Denies erythema, Denies rash and Denies wounds Neurologic Neurologic: Denies behavioral changes, Denies confusion, Reports dizziness, Denies frequent falls, Denies loss of vision, Denies numbness, Denies tingling and Denies weakness Psychiatric Psychiatric: Denies anxiety, Denies behavioral changes, Denies confusion, Denies depression, Denies homicidal ideation and Denies suicidal ideation Endocrine Endocrine: Denies fatigue, Denies flushing and Denies palpitations Hematologic/Lymphatic Hematologic/Lymphatic: Denies easy bruising Allergic/Immunologic Allergic/Immunologic: Denies urticaria, Denies throat swelling and Denies wheezing Patient History Medical History Acne (Resolved ~1956) Acquired hypothyroidism (Chronic 04/13/15) Chicken pox (Resolved) Diverticulosis of large intestine (Chronic) Essential hypertension (Chronic) Hearing loss (Chronic ~2012) History of adenomatous polyp of colon (Inactive 04/05/11) History of pre-eclampsia (Inactive) Measles (Resolved) Mitral valve prolapse (Chronic 04/05/11) Mixed hyperlipidemia (Chronic 04/05/11) Osteopenia (Chronic ~1995) Rosacea (Chronic ~1986) Rubella (Resolved) Thyroid nodule (Resolved ~1996) 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 Social History household members: none Smoking Status: Never smoker Smoking Status: Never smoker alcohol intake frequency: a few times a week Substance Use Type: does not use Exam Narrative Exam Narrative: GENERAL: 74 [] year old patient appears stated age. Well-nourished, well-developed patient, in mild distress. HEAD: Atraumatic. Normocephalic. EYES: Pupils equal round and reactive. Extraocular motions intact. No scleral icterus. No injection or drainage. ENT: Nose without bleeding, purulent drainage. Throat without erythema, tonsillar hypertrophy or exudate. Airway patent. NECK: Trachea midline. Non tender CARDIOVASCULAR: Regular rate and rhythm without murmurs, gallops, or rubs. RESPIRATORY: Clear to auscultation. Breath sounds equal bilaterally. No wheezes, rales, or rhonchi. GASTROINTESTINAL: Abdomen soft, non-tender, nondistended. EXTREMITIES: No edema or joint tenderness. BACK: Nontender without deformity or crepitance. No flank tenderness. NEURO: AOx3. SKIN: No rash or erythema of visible areas NIH Stroke Scale 1a. LOC: Patient is alert and keenly responsive (0) 1b. LOC Questions: Patient answers both LOC questions accurately (0) 1c. LOC Commands: Patient performs both tasks correctly (0) 2. Best Gaze: Normal (0) 3. Visual: No visual loss (0) 4. Facial palsy: Normal symmetrical movements (0) 5. Motor arm: No drift (0) 6. Motor leg: No drift (0) 7. Limb ataxia: Absent (0) 8. Sensory: Normal (0) 9. Best language: No aphasia; normal (0) 10. Dysarthria: Normal (0) 11. Extinction and inattention: No abnormality (0) NIHSS: 0 Initial Vital Signs Initial Vital Signs: Vital Signs Temperature 98.2 F 06/08/19 15:30 Pulse Rate 90 06/08/19 15:30 Respiratory Rate 20 06/08/19 15:30 Blood Pressure 178/90 H 06/08/19 15:30 Pulse Oximetry 99 06/08/19 15:30 Course Orders Ordered: ED Orders 06/08/19 15:39 Urinalysis and Microscopic Stat Urine Culture Stat 06/08/19 16:04 EKG-12 Lead Stat Vital Signs Vital signs: Vital Signs - 8 hr 06/08/19 15:30 06/08/19 16:16 Temperature 98.2 F Pulse Rate 90 Respiratory Rate 20 Blood Pressure 178/90 H Blood Pressure [Left Arm] 182/68 H Pulse Oximetry 99 Medical Decision Making Lab Data Labs: Lab Results 06/08/19 Range/Units 15:39 Urine Color Other Urine Appearance Sl cloudy Urine pH 7.5 (4.5-8.0) Ur Specific [place] <=1.005 (1.000-1.035) Urine Protein 1+ H (Negative) Urine Glucose (UA) Negative (Negative) g/dL Urine Ketones Negative (NEGATIVE) Urine Occult Blood 3+ H (Negative) Urine Nitrate Negative (Negative) Urine Bilirubin Negative (NEGATIVE) Urine Urobilinogen 0.2 (0.2) E.U./dL Ur Leukocyte Esterase 3+ H (NEGATIVE) Urine RBC 30-100/hpf H (0-5/HPF) Urine WBC >100/hpf H (0-5/HPF) Urine Bacteria Moderate (10-30) H (None) Ur Culture Indicated? Specimen cultured Urine Dip Bedside Urine Glucose Negative Bedside Urine Bilirubin - Negative Bedside Urine Ketone - Negative Urine Specific [place] 1.010 Bedside Urine Occult Blood +++ Bedside Urine pH 7.5 Bedside Urine Protein + 30 Bedside Urine Urobilinogen - Negative Bedside Urine Nitrite - Negative Bedside Urine Leukocytes +++ 500 Esterase Point of care testing: Urine Dip Bedside Urine Glucose Negative Bedside Urine Bilirubin - Negative Bedside Urine Ketone - Negative Urine Specific [place] 1.010 Bedside Urine Occult Blood +++ Bedside Urine pH 7.5 Bedside Urine Protein + 30 Bedside Urine Urobilinogen - Negative Bedside Urine Nitrite - Negative Bedside Urine Leukocytes +++ 500 Esterase MDM Narrative Medical decision making narrative: Patient remains hypertensive but in the absence of any symptoms. We discussed the utility of lab work and sure the opinion that it is unlikely to change the outcome. Return precautions given and questions answered to her apparent satisfaction Discharge Plan Departure Patient Disposition: Home Clinical Impression: Acute UTI Hypertension Qualifiers: Hypertension type: essential hypertension Qualified Code(s): I10 - Essential (primary) hypertension Discharge Date/Time: 06/08/19 16:30 Instructions: DI for High Blood Pressure, DI for Urinary Tract Infection (UTI) Activity Restrictions/Additional Instructions: *You have been diagnosed with [hypertensive episode and acute urinary tract infection] *What to do: *Take medications as directed: [facility] [place] *Follow up with your primary care provider in 2-3 days, call for an appointment. Let them know you were seen in the Emergency Department and that we ask that you be seen in follow up *Return to ER if you should have any new, worsening or concerning symptoms Prescriptions: New cephalexin [Keflex] 500 mg capsule 500 mg PO QID 5 Days Qty: 20 RF: 0 No Action omega 1-alf-kxa-fish oil [Fish Oil] 1,000 MG capsule 1,000 mg PO DAILY Qty: 0 RF: 0 hydrochlorothiazide 25 mg tablet 25 mg PO DAILY Qty: 90 RF: 3 levothyroxine 50 mcg tablet See Rx Instructions .ROUTE .COMPLEX Qty: 90 RF: 1 alendronate 70 mg tablet 70 mg PO QWEEK Qty: 12 RF: 1 atorvastatin [Lipitor] 20 mg tablet 20 mg PO BEDTIME RF: 0 Metamucil 1 cap PO Q OTHER DAY RF: 0 calcium amm-lky-T7-Zn-picture copyist-caprice 1 tab PO DAILY RF: 0 Referrals: Marbin Grove MD [Primary Care Provider] -
[2019-06-08 16:16] VITALS: BP 182/68
== END 2019-06-08 16:30 | disposition home or self-care (01) ==
PROVIDERS: Emergency Provider Emergency Medicine; PCP Internal Medicine
DX: N39.0 Urinary tract infection, site not specified (principal); I10 Essential (primary) hypertension; E78.5 Hyperlipidemia, unspecified
CPT/HCPCS: 81001; 81003; 87077; 87086; 87186; 93005; 99283

== ENCOUNTER → 2019-08-14 10:23 | Outpatient (CLI) | payer MEDICARE, SELFPAY ==
[2019-08-14 12:35] LABS: Add Manual Diff / Slide Review NO; Basophils Absolute Auto 0 /uL (0-100); Basophils Percent Auto 0.6 % (0-2); Eosinophils Absolute Auto 0 /uL (0-450); Eosinophils Percent Auto 0.5 % (2-4); Hematocrit 38.3 % (36-46); Hemoglobin 12.6 g/dL (12.0-16.0); Lymphocytes Absolute Auto 1500 /uL (1100-4500); Lymphocytes Percent Auto 23.1 % (25-40); Mean Corpuscular Hemoglobin 31.8 PG (26-34); Mean Corpuscular Volume 96.4 fL (80-100); Monocytes Absolute Auto 600 /uL (0-900); Monocytes Percent Auto 9.5 % (3-14); Neutrophils Absolute Auto 4200 /uL (1500-7000); Neutrophils Percent Auto 66.3 % (50-75); Platelet Count 299 X10^3/uL (150-400); Red Blood Cell Count 3.97 X10^6/uL (4.0-5.2); White Blood Cell Count 6.3 X10^3/uL (4.5-11.0)
== END ==
PROVIDERS: PCP Internal Medicine; Referring Provider Internal Medicine; Visit Provider Internal Medicine
DX: K62.5 Hemorrhage of anus and rectum (principal)
CPT/HCPCS: 36415; 85025

== ENCOUNTER → 2019-10-18 15:24 | Outpatient (CLI) | payer MEDICARE, SELFPAY ==
[2019-10-19 01:11] LABS: COVID19 Sendout Not Detected (Not Detect)
== END ==
PROVIDERS: PCP Internal Medicine; Visit Provider Physician Assistant
DX: Z01.812 Encounter for preprocedural laboratory examination (principal)
CPT/HCPCS: 87635

== ENCOUNTER 2019-10-21 12:03 | Day surgery (SDC) | payer MEDICARE, SELFPAY ==
--- NOTE | 2019-10-21 | PATH_ITS ---
[facility] Accession Number: [id number] . 01 Material submitted: . colon - ASCENDING COLON POLYPS AT 95CM . 02 Diagnosis: Ascending Colon Polyps at 95 cm, Biopsies: Portions of tubular adenoma x3. V 10/23/2019 1034 Local . 02 Electronically signed: . Deidre Gregory MD, Pathologist NPI- [id number] . 01 Gross description: . ASCENDING COLON POLYPS AT 95CM: Received in formalin are 3 fragment(s) of esteban, soft tissue measuring 0.5 x 0.3 x 0.4 cm to 0.3 x 0.3 x 0.2 cm submitted entirely in 1 cassette(s) /QBJ 10/22/2019 0428 Local . 02 Pathologist provided ICD-10: K63.5 . 02 CPT . 030166 Performed at: 01 [facility] [address], [place], [place] [id number] MD Guy Parada MD Phone: [phone] Performed at: 02 [facility] [address] [place], [place] [id number] MD Li Biggs MD Phone: [phone]
[2019-10-21 12:52] VITALS: BP 179/88; PULSE 81; RESP 16; TEMP 36.7; O2SAT 99; BMI 22.3
--- NOTE | 2019-10-21 12:59 | P.HP_ITS ---
History of Present Illness History of Present Illness Date Patient Seen: 10/21/19 Time Patient Seen: 13:00 Chief complaint: [id number] SCREENING COLONOSCOPY Narrative: This is a 74-year-old woman with history of diverticulosis, colon polyps, hypertension, hyperlipidemia, hypothyroidism, chronic UTIs. She reports intermittent rectal bleeding. She has had 3 colonoscopies before. The most recent was in 2013. She most recently had rectal bleeding two months ago. It was self limited. She denies any prior episodes of diverticulitis. ROS: ROS is positive for rectal bleeding, UTI, hard of hearing, Thirteen system review is otherwise negative other than as mentioned below and in HPI. PE: GENERAL: Well groomed and cooperative. Appears stated age. Answers questions promptly and appropriately. Vital signs noted. HENT: Normocephalic, atraumatic. Hearing intact. Oral mucosa is pink and moist. EYES: Conjunctiva pink, sclera white, no periorbital swelling. CARDIOVASCULAR: Regular rate. No pedal edema. RESPIRATORY: Non-tachypneic, breathing comfortably on room air. GASTROINTESTINAL: Abdomen soft and non-distended GENITALURINARY: No flank tenderness. MUSCULOSKELETAL: Equal tone and mass bilaterally. SKIN: Warm, dry, soft, appropriate color for ethnicity. No other lesions, rashes, or wounds. NEURO: Alert and Oriented X 3. No gross sensory deficits, or cognitive issues. PSYCH: Appropriate affect and mood. Patient History Medical History Acne (Resolved ~1956) Acquired hypothyroidism (Chronic 04/13/15) Chicken pox (Resolved) Diverticulosis of large intestine (Chronic) Essential hypertension (Chronic) Hearing loss (Chronic ~2012) History of adenomatous polyp of colon (Inactive 04/05/11) History of pre-eclampsia (Inactive) Measles (Resolved) Mitral valve prolapse (Chronic 04/05/11) Mixed hyperlipidemia (Chronic 04/05/11) Osteopenia (Chronic ~1995) Rosacea (Chronic ~1986) Rubella (Resolved) Thyroid nodule (Resolved ~1996) 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) Vision disorder (Chronic) Surgical History Anesthesia (Resolved) Fractures (Resolved ~1981) History of thyroidectomy (~2002) Status post delivery (~1969) Status post delivery (~1970) Family & Social History Family History Father Rheumatoid arthritis Mother No problems noted. 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-caprice 1 tab PO DAILY 10/24/18 10/21/19 History hydrochlorothiazide 25 mg tablet 25 mg PO DAILY #90 tab 01/09/19 10/21/19 Rx atorvastatin 20 mg tablet 20 mg PO BEDTIME #90 tab 07/01/19 10/21/19 Rx alendronate 70 mg tablet 70 mg PO QWEEK #12 tab 09/11/19 10/21/19 Rx levothyroxine 50 mcg tablet See Rx Instructions .ROUTE 10/03/19 10/21/19 Rx .COMPLEX #90 tablet Allergies Allergy/AdvReac Type Severity Reaction Status Date / Time prochlorperazine Allergy Mild DYSTONIA Verified 10/21/19 12:45 ciprofloxacin AdvReac Unknown JOINT PAIN Verified 10/21/19 12:45 Assessment & Plan Assessment and plan (1) Diverticulosis of large intestine: Status: Chronic (2) History of adenomatous polyp of colon: Status: Inactive (3) Mitral valve prolapse: Status: Chronic (4) Essential hypertension: Status: Chronic (5) Acquired hypothyroidism: Status: Chronic (6) Mixed hyperlipidemia: Status: Chronic (7) Tricuspid valve disease: Status: Chronic Assessment & Plan narrative: Risks and benefits of screening colonoscopy and possible polypectomy were discussed with the patient including risk of bleeding, perforation, need for additional procedures, risks of anesthesia. The patient desires to proceed with the colonoscopy procedure. COVID-19 COVID-19 status: Negative Result date/Date tested (Pos, Neg/Pending): 10/18/19 Time Spent With Patient Time with patient: 15-24 minutes Quality VTE Deep Vein Thrombosis/Pulmonary Embolism Present on Admission: No
[2019-10-21] MEDS: SODIUM CHLORIDE 0.9% 1,000 ML 200 ML IV (13:04)
--- NOTE | 2019-10-21 13:53 | PM.OP.ENDO ---
Operative Date/Time/Diagnoses Date of procedure: 10/21/19 Time of procedure: 13:53 Pre-op diagnosis: Personal history of colon polyps, history of diverticulosis Post-op diagnosis: other (diverticulosis, thickening of associated sigmoid colon, multiple polyps in ascending colon, low grade hemorrhoids, poor prep) Procedure & Clinicians Study performed: 1. Colonoscopy 2. Removal of adenomatous appearing polyps in ascending colon with hot snare x 2 3. Removal of adenomatous appearing polyp in ascending colon with cold forceps x 1 Same procedure as scheduled: Yes Indications: Personal history of colon polyps, due for surveillance colonoscopy Surgeon: Ingrid Garcias Procedure Notes SCOAP/Timeout: Performed Procedure in detail: The patient was brought to the room and placed in left lateral decubitus position with all bony prominences padded. A time-out was performed and then the patient was given procedural sedation starting with 2 mg of Versed and 100 mcg of fentanyl. A total of 5 mg of Versed and 250 micro g of fentanyl were given for the entire procedure. Vitals were monitored throughout the procedure and remained stable. Once adequately sedated, the procedure was begun. A rectal exam was performed revealing no abnormalities. The colonoscope was then introduced to the rectum and advanced to the cecum in the usual fashion. The colon was very tortuous, there were many false passages due to extensive diverticulosis and associated chronic thickening of the sigmoid colon. The prep was poor throughout the colon, with adherent stool. I power washed the colon as much as possible, to get an adequate view for identifying medium to large size polyps. The cecum was identified by the appendiceal orifice, the mucosal tri-fold, and the ileocecal valve. The scope was then retracted while rotating side to side and examining each mucosal fold. Three polyps were removed in the ascending colon at 95 cm. Close examination was done of the remainder of the colon as best I could, power washing down adherent stool from the caldwell of the colon. At the conclusion of the procedure retroflexion was performed and small grade 1-2 internal hemorrhoids without stigmata of bleeding were seen. The scope was then withdrawn from the rectum the procedure was concluded. The patient tolerated the procedure well and was transferred to the PACU in stable condition. Scope withdrawal time: 18 Sedation minutes: 35 Findings: diverticulosis and polyp (Three polyps at 95 cm in the ascending colon) Specimen(s): other (Three polyps from 95 cm in the ascending colon) Complications: none Impression: Extensive diverticulosis throughout the colon with thickening of the sigmoid colon and many false passages indicative of long-term chronic diverticulosis. Multiple polyps at 95 cm in the ascending colon. For prep, potentially preventing visibility of smaller polyps. Post-procedure Recommendations: Colonscopy in 5 years (Due to multiple polyps and poor prep potentially prevented visualization of smaller polyps) Follow up: as needed Disposition: PACU
[2019-10-21 14:00] VITALS: BP 121/64; PULSE 81; RESP 16; O2SAT 99
[2019-10-21] MEDS: fentaNYL 250 MCG/5 ML INJ IV (14:34)
[2019-10-21] MEDS: MIDAZOLAM 5 MG/5 ML VIAL IV (14:35)
[2019-10-21 14:37] VITALS: BP 111/76; PULSE 77; RESP 19; TEMP 36.2; O2SAT 98
[2019-10-21 14:42] VITALS: BP 121/64; PULSE 85; RESP 15; O2SAT 99
[2019-10-21 14:50] VITALS: BP 136/67; PULSE 85; RESP 16; TEMP 36.6; O2SAT 99
[2019-10-21 15:19] VITALS: BP 117/68; PULSE 69; RESP 16; O2SAT 100
--- NOTE | 2019-10-21 15:22 | SUR.PHASEII ---
Friend called, Dr. Garcias spoke at length with pt. Pt ready t go, dressed and left unit in stable condition.
== END 2019-10-21 15:30 | disposition home or self-care (01) ==
PROVIDERS: PCP Internal Medicine; Referring Provider Surgery; Visit Provider Surgery
PROC: 0DJD8ZZ Inspection of Lower Intestinal Tract, Via Natural or Artificial Opening Endoscopic (ICD-10-PCS; CPT 45378; principal; 2019-10-21 13:00)
DX: Z12.11 Encounter for screening for malignant neoplasm of colon (principal); Z86.010 Personal history of colon polyps; I34.1 Nonrheumatic mitral (valve) prolapse; I10 Essential (primary) hypertension; E03.9 Hypothyroidism, unspecified; E78.2 Mixed hyperlipidemia; I07.9 Rheumatic tricuspid valve disease, unspecified; K57.30 Diverticulosis of large intestine without perforation or abscess without bleeding; K64.0 First degree hemorrhoids; K63.5 Polyp of colon
CPT/HCPCS: 45385; 45380; 99152; 99153; J2250; J3010

== ENCOUNTER → 2019-12-22 15:36 | Outpatient (CLI) | payer MEDICARE, SELFPAY ==
--- NOTE | 2019-12-22 | DI.MG.S_ITS ---
BILATERAL DIGITAL SCREENING MAMMOGRAM 3D/2D WITH CAD: 12/22/2019 CLINICAL: Routine screening. Comparison is made to exams dated: 12/19/2018 mammogram, 12/11/2017 mammogram, and 11/27/2016 mammogram - [facility]. There are scattered fibroglandular elements in both breasts. Current study was also evaluated with a Computer Aided Detection (CAD) system. There is a biopsy clip in the left breast. No significant masses, calcifications, or other findings are seen in either breast. There has been no significant interval change. IMPRESSION: NEGATIVE There is no mammographic evidence of malignancy. A 1 year screening mammogram is recommended. This exam was interpreted at Station ID: [id number]. NOTE: For mammograms, a report in lay terms will be sent to the patient. Approximately 15% of breast malignancies will not be visualized mammographically. In the management of a palpable breast mass, a negative mammogram must not discourage biopsy of a clinically suspicious lesion. Electronically Signed By: Tim crawford/tacho:12/22/2019 20:17:25 letter sent: Normal Exam ACR BI-RADS Category 1: Negative 3341F
== END ==
PROVIDERS: PCP Internal Medicine; Referring Provider Internal Medicine; Visit Provider Internal Medicine
DX: Z12.31 Encounter for screening mammogram for malignant neoplasm of breast (principal)
CPT/HCPCS: 77063; 77067

== ENCOUNTER → 2020-01-02 12:03 | Outpatient (CLI) | payer MEDICARE, SELFPAY ==
[2020-01-02 14:33] LABS: Appearance Urine UA SL CLOUDY; Bilirubin Urine UA NEGATIVE (NEGATIVE); Color Urine UA YELLOW; Glucose Urine UA NEGATIVE (Negative); Ketones Urine UA NEGATIVE (NEGATIVE); Leukocyte Esterase Urine UA 1+ (NEGATIVE); Nitrite Urine UA NEGATIVE (Negative); Occult Blood Urine UA 1+ (Negative); Protein Urine UA NEGATIVE (Negative); Specific Gravity Urine UA 1.015 (1.000-1.035); Urobilinogen Urine UA 0.2 E.U./dL (0.2)
[2020-01-02 15:29] LABS: Bacteria Urine Many (>30); Culture Indicated Urine Specimen Cultured; RBC Urine 5-10/HPF (0-5/HPF); Squamous Epithelial Cell Urine 1-5 /HPF (0-5/HPF); Transitional Epi Cells Urine 1-5/HPF (0-5/HPF); WBC Urine 30-100/HPF (0-5/HPF)
== END ==
PROVIDERS: PCP Internal Medicine; Referring Provider Internal Medicine; Visit Provider Internal Medicine
DX: N39.0 Urinary tract infection, site not specified (principal)
CPT/HCPCS: 81001; 87077; 87086; 87186

== ENCOUNTER → 2020-05-05 07:10 | Outpatient (CLI) | payer MEDICARE, SELFPAY ==
[2020-05-05 08:10] LABS: Alanine Aminotransferase 18 IU/L (<35); Albumin 4.1 g/dL (3.5-5.0); Albumin Globulin Ratio 1.4 (1.0-2.8); Alkaline Phosphatase 43 U/L (38-126); Aspartate Aminotransferase 30 IU/L (14-36); BUN Creatinine Ratio 25.4 (6-22); Bilirubin Total 0.7 mg/dL (0.2-1.3); Blood Urea Nitrogen 17 mg/dL (7-17); Calcium 9.4 mg/dL (8.4-10.2); Carbon Dioxide 33 mmol/L (22-32); Chloride 102 mmol/L (98-107); Cholesterol 178 mg/dL (140-199); Estimated Glomerular Filt Rate > 60.0 mL/min (>60); Globulin 2.9 g/dL (1.7-4.1); Glucose 110 mg/dL (80-110); HDL Cholesterol 71 mg/dL (40-60); HEMOLYSIS < 15 (0-50); LDL Cholesterol Calculated 97 mg/dL (<100); Potassium 4.1 mmol/L (3.4-5.1); Sodium 138 mmol/L (137-145); Triglycerides 51 mg/dL (35-150)
[2020-05-05 08:59] LABS: Free T4, Direct Thyroxine 1.46 ng/dL (0.78-2.19)
== END ==
PROVIDERS: PCP Internal Medicine; Referring Provider Internal Medicine; Visit Provider Internal Medicine
DX: E03.9 Hypothyroidism, unspecified (principal); E78.2 Mixed hyperlipidemia; I10 Essential (primary) hypertension
CPT/HCPCS: 36415; 80053; 80061; 84439; 84443

== ENCOUNTER → 2020-12-30 11:01 | Outpatient (CLI) | payer MEDICARE, SELFPAY ==
--- NOTE | 2020-12-30 11:02 | DI.MG.S_ITS ---
BILATERAL DIGITAL SCREENING MAMMOGRAM 3D/2D WITH CAD: 12/30/2020 CLINICAL: Routine screening. Comparison is made to exams dated: 12/22/2019 mammogram, 12/19/2018 mammogram, and 12/11/2017 mammogram - [facility]. There are scattered fibroglandular elements in both breasts. Current study was also evaluated with a Computer Aided Detection (CAD) system. There is a biopsy clip in the left breast. No significant masses, calcifications, or other findings are seen in either breast. There has been no significant interval change. IMPRESSION: NEGATIVE There is no mammographic evidence of malignancy. A 1 year screening mammogram is recommended. This exam was interpreted at Station ID: [id number]. NOTE: For mammograms, a report in lay terms will be sent to the patient. Approximately 15% of breast malignancies will not be visualized mammographically. In the management of a palpable breast mass, a negative mammogram must not discourage biopsy of a clinically suspicious lesion. Electronically Signed By: Tim crawford/tacho:12/30/2020 14:55:52 letter sent: Normal Exam ACR BI-RADS Category 1: Negative 3341F
== END ==
PROVIDERS: PCP Internal Medicine; Referring Provider Internal Medicine; Visit Provider Internal Medicine
DX: Z12.31 Encounter for screening mammogram for malignant neoplasm of breast (principal)
CPT/HCPCS: 77063; 77067

== ENCOUNTER → 2021-05-06 07:31 | Outpatient (CLI) | payer MEDICARE, SELFPAY ==
[2021-05-06 09:25] LABS: Alanine Aminotransferase 18 IU/L (<35); Albumin Globulin Ratio 1.3 (1.0-2.8); Alkaline Phosphatase 37 U/L (38-126); Aspartate Aminotransferase 27 IU/L (14-36); Bilirubin Total 0.9 mg/dL (0.2-1.3); Blood Urea Nitrogen 20 mg/dL (7-17); Calcium 9.4 mg/dL (8.4-10.2); Carbon Dioxide 32 mmol/L (22-32); Chloride 104 mmol/L (98-107); Cholesterol 185 mg/dL (140-199); Estimated Glomerular Filt Rate > 60.0 mL/min (>60); Globulin 3.1 g/dL (1.7-4.1); Glucose 106 mg/dL (80-110); HDL Cholesterol 83 mg/dL (40-60); HEMOLYSIS < 15 (0-50); LDL Cholesterol Calculated 92 mg/dL (<100); Potassium 3.8 mmol/L (3.4-5.1); Sodium 138 mmol/L (137-145); Total Protein 7.1 g/dL (6.3-8.2); Triglycerides 48 mg/dL (35-150)
[2021-05-06 10:00] LABS: Thyroid Stimulating Hormone 1.38 uIU/mL (0.47-4.68)
== END ==
PROVIDERS: PCP Internal Medicine; Referring Provider Internal Medicine; Visit Provider Internal Medicine
DX: E78.2 Mixed hyperlipidemia (principal); E03.9 Hypothyroidism, unspecified; I10 Essential (primary) hypertension
CPT/HCPCS: 36415; 80053; 80061; 84443

== ENCOUNTER 2021-11-23 09:45 | Outpatient (RCR) | payer MEDICARE, OTHER, SELFPAY ==
--- NOTE | 2021-08-18 09:45 | PT.OPPOC ---
Physical, Occupational & Speech Therapy At [facility] Current Diagnoses Pain in right hip (08/18/21) Difficulty in walking, not elsewhere classified (08/18/21) Visit Care Team Role Provider Type Marbin Grove MD Attending Provider Physician Family Provider Primary Care Provider Referring Provider Specialty: Internal Medicine Address: [address] [place] [address], [address], [facility] Email: [email or web address] Plan Of Care PT-OP-T Assessment and Plan Start: 08/17/21 16:18 Freq: Status: Active Protocol: Document 08/18/21 09:45 AW (Rec: 08/22/21 08:57 AW [id number]) Physical Therapy Assessment Rehab Potential Rehabilitation Potential Good Evaluation Complexity Number of Personal Factors/Comorbidities 1-2 Number of Body Systems Impaired 1-2 Clinical Presentation at Evaluation Stable Impairments Impairments Balance,Gait,Pain,ROM,Soft Tissue Mobility,Strength Other Concerns Fall Risk low per 24/30 score on FGA Goals Three Impairment balance Nougat Cutter Machine Goal (LTG) Pt will improve FGA score from 24/30 to 27/30 or greater as a measure of improved dynamic balance. LTG Duration 10 weeks - 10/27/21 Two Impairment pain with stair climbing Penitentiary Goal (LTG) Pt will ascend/descend 28 steps two times with use of hand rail as needed without increase in baseline pain. LTG Duration 10 weeks - 10/27/21 One Impairment lacks HEP Short Term Goal (STG) Pt will be instructed in HEP for hip ROM, hip strength, and balance to support therapy services provided in clinic. STG Duration 5 weeks - 08/23/21 Nougat Cutter Machine Goal (LTG) Pt will be independent with HEP to promote return to regular activity without pain. LTG Duration 10 weeks - 10/27/21 Assessment Summary Assessment Lauren is an active 76 yo woman who attends outpatient physical therapy with sudden onset posterior hip pain ~10 days ago. She had been doing a lot of gardening and then noticed hip pain especially with stair climbing. Signs and symptoms including painful internal rotation MMT and painful end-range external rotation are most consistent with tendinopathy of the deep external rotators. Pt is expected to benefit from skilled PT to reduce her pain and help her maintain her regular physical activity. She has a vacation planned in August so this POC is extended to accommodate her planned travel . Physical Therapy Plan Frequency and Duration Frequency of Treatment 1-2x/week Duration of Treatment 10 weeks Plan of Care Start Date 08/18/21 Plan of Care End Date 10/27/21 Therapeutic Interventions Therapeutic Interventions Balance Training,Gait Training ,Home Exercise Program,Manual Therapy,Neuromuscular Re- education,Self-Care/Home Management,Soft Tissue Mobilization,Therapeutic Activities,Therapeutic Exercises Modalities Cold Pack/Ice Massage,Electric Stimulation,Hot Packs Next Visit Focus/Plan Next Note Type Treatment Note Next Visit Plan review initial HEP and initiate hip strengthening. consider 6MWT for baseline assessment. initiate balance training. Plan of Care Dates Plan of Care Start Date 08/18/21 Plan of Care End Date 10/27/21 Electronically Signed by: Ibeth Miguel PT 08/22/21 0858 If you are in agreement with this Plan of Care, please return a signed and dated copy. I have reviewed this Plan of Care and certify that the skilled therapy services above are required to meet the patient?s needs. Physician Signature Date Printed Name and Credentials Clinical Instructor Signature Printed Name and Credentials
--- NOTE | 2021-08-18 09:45 | PT.OIE ---
Current Diagnoses Pain in right hip (08/18/21) Difficulty in walking, not elsewhere classified (08/18/21) Past Medical History (Last Updated 05/07/20 @ 09:17 by Marbin Grove MD) Acne (~1956) Acquired hypothyroidism (04/13/15) Diverticulosis of large intestine Essential hypertension Hearing loss (~2012) History of adenomatous polyp of colon (04/05/11) History of pre-eclampsia Mitral valve prolapse (04/05/11) Mixed hyperlipidemia (04/05/11) Osteopenia (~1995) Rosacea (~1986) Thyroid nodule (~1996) 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) Vision disorder Past Surgical History (Last Reviewed 10/21/19 @ 13:03 by Ingrid Garcias MD) Anesthesia Fractures (~1981) History of thyroidectomy (~2002) Status post delivery (~1969) Status post delivery (~1970) Visit Care Team Role Provider Type Marbin Grove MD Attending Provider Physician Family Provider Primary Care Provider Referring Provider Specialty: Internal Medicine Address: [address] [place] [address], [address], [facility] Email: [email or web address] Physical Therapy Initial Evaluation PT-OP-A Visit Information Start: 08/17/21 16:18 Freq: Status: Active Protocol: Document 08/18/21 09:45 AW (Rec: 08/18/21 08:49 AW [id number]) Out-Patient Physical Therapy Visit Information Visit Information Visit Type Initial Evaluation Visit Start Time 09:45 Visit Stop Time 10:30 Total Visit Minutes 45 Visit Number 1 Evaluation Information Evaluation Date 08/18/21 PT-OP-B Current Condition Start: 08/17/21 16:18 Freq: Status: Active Protocol: Document 08/18/21 09:45 AW (Rec: 08/18/21 08:49 AW [id number]) Current Condition History of Current Condition Onset Date 10 days Current Complaints R hip pain History of Current Condition Lauren has been doing a lot of yard work lately and noticed R posterior hip pain about 10 days ago with gradual onset but has been worsening. Has not had any hip pain before. Up stairs is the worst. Slopes are ok. Took ibuprofen one day and does not like to take medication. Pain is not disturbing sleep very much. Worse with activity. She likes to walk up [place] 2-3 times per week. History of left femur fracture while skiing when she was 40 yo. Pt has osteoporosis. Went off fosomax in April and is awaiting repeat DEXA. She has had a Torres's cyst left knee 30 years but it is recently more swollen. She has a leftward lumbar scoliotic curve. Her left leg is shorter and she uses a heel lift in her shoes to compensate. Prior Treatments and Tests No imaging of this hip. Pt had PT previously after wrist fracture 3 years ago which resulted from a fall. Treatment Goals Patient/Caregiver Goals Leaving August 30 for a trip - driving to [place] and flying to [place]. She hopes to be in good shape for her trip. Wants to keep walking, play golf, keep hiking without pain . Personal Factors Other Personal Factors That May Effect High level of activity Therapy/Recovery bolsters prognosis. PT-OP-C Subjective Start: 08/17/21 16:18 Freq: Status: Active Protocol: Document 08/18/21 09:45 AW (Rec: 08/21/21 17:21 AW [id number]) Patient Questionnaires Lower Extremity Functional Scale LEFS Score 68 LEFS Impairment 1 to 19% Impaired (Score 63-79 ) OP-PT Pain Assessment Pain Assessment Grid Paper Pain Assessment Grid Completed No PT-OP-E Functional Tests Start: 08/17/21 16:18 Freq: Status: Active Protocol: Document 08/18/21 09:45 AW (Rec: 08/18/21 13:42 AW [id number]) Functional Tests Functional Gait Assessment Score 24 - copy scanned to [facility] Functional Gait Assessment Impairment 20 to <40% Impaired (Score 19- Rating 24) PT-OP-F Manual Assessment Start: 08/17/21 16:18 Freq: Status: Active Protocol: Document 08/18/21 09:45 AW (Rec: 08/21/21 17:22 AW [id number]) Manual Assessments Soft Tissue Assessment Soft Tissue Mobility Assessment TTP at deep external rotators of the right hip PT-OP-G Mobility & Gait Start: 08/17/21 16:18 Freq: Status: Active Protocol: Document 08/18/21 09:45 AW (Rec: 08/22/21 08:42 AW [id number]) OP Gait Assessment Comments Gait Comments Short step length bilaterally. Gait quality is choppy but without evidence of imbalance. Stair Climbing Evaluation Comments Stair Climbing Comments Step over step with definite use of hand rail. Pt reports no pain today but states pain is typically most irritable with stairs. PT-OP-J Posture/Palpation/Skin Start: 08/17/21 16:18 Freq: Status: Active Protocol: Document 08/18/21 09:45 AW (Rec: 08/22/21 08:42 AW [id number]) Posture Evaluation Comments Posture Comments All pelvic bony landmarks higher on the right due to lumbar levoscoliosis and LLE shorter than RLE. Palpation Assessment Location right hip Palpation Findings Tenderness Palpation Details TTP at deep external rotators. 3/10 pain with deep palpation . PT-OP-K Range of Motion Start: 08/17/21 16:18 Freq: Status: Active Protocol: Document 08/18/21 09:45 AW (Rec: 08/22/21 08:42 AW [id number]) Hip Goniometric Range of Motion Hip right Hip ROM WFL Yes Comments End range PROM ER and flexion are painful. Hip ROM Limitations Hip ROM Limitations Soft Tissue Tightness,Pain Comments No pain with any end-range PROM L hip. PT-OP-M Strength Start: 08/17/21 16:18 Freq: Status: Active Protocol: Document 08/18/21 09:45 AW (Rec: 08/22/21 08:42 AW [id number]) Hip Strength Hip Manual Muscle Testing bilat Flexion (L2) 4+ Good+ Extension (S1) 4 Good Abduction 4 Good External Rotation 4+ Good+ Internal Rotation 4+ Good+ Comments R hip IR MMT reproduces pain in posterior hip. Knee Strength Knee Manual Muscle Testing bilat Flexion (S2) 4+ Good+ Extension (L3) 5 Normal PT-OP-Q Treatments Start: 08/17/21 16:18 Freq: Status: Active Protocol: Document 08/18/21 09:45 AW (Rec: 08/22/21 08:57 AW [id number]) Therapeutic Exercises Supine Exercises piriformis stretch Supine Exercise Name piriformis stretch Side bilateral Reps/Minutes 30 SH x 4 Comments HEP; cued pain free range Sitting Exercises HS stretch Sitting Exercise Name HS stretch Side bilateral Reps/Minutes 30 SH x 4 Comments HEP Self-Care/Home Management Treatment Education Other Education Educated pt on evaluation findings and proposed POC centered on hip ROM, hip strength, and balance. Pt verbalized understanding and agreement. PT-OP-T Assessment and Plan Start: 08/17/21 16:18 Freq: Status: Active Protocol: Document 08/18/21 09:45 AW (Rec: 08/22/21 08:57 AW [id number]) Physical Therapy Assessment Rehab Potential Rehabilitation Potential Good Evaluation Complexity Number of Personal Factors/Comorbidities 1-2 Number of Body Systems Impaired 1-2 Clinical Presentation at Evaluation Stable Impairments Impairments Balance,Gait,Pain,ROM,Soft Tissue Mobility,Strength Other Concerns Fall Risk low per score on FGA Goals Three Impairment balance Setter Helper Goal (LTG) Pt will improve FGA score from 2430 to 27/30 or greater as a measure of improved dynamic balance. LTG Duration 10 weeks - 10/27/21 Two Impairment pain with stair climbing Senior Care Goal (LTG) Pt will ascend/descend 28 steps two times with use of hand rail as needed without increase in baseline pain. LTG Duration 10 weeks - 10/27/21 One Impairment lacks HEP Short Term Goal (STG) Pt will be instructed in HEP for hip ROM, hip strength, and balance to support therapy services provided in clinic. STG Duration 5 weeks - 08/23/21 Senior Care Goal (LTG) Pt will be independent with HEP to promote return to regular activity without pain. LTG Duration 10 weeks - 10/27/21 Assessment Summary Assessment Lauren is an active 76 yo woman who attends outpatient physical therapy with sudden onset posterior hip pain ~10 days ago. She had been doing a lot of gardening and then noticed hip pain especially with stair climbing. Signs and symptoms including painful internal rotation MMT and painful end-range external rotation are most consistent with tendinopathy of the deep external rotators. Pt is expected to benefit from skilled PT to reduce her pain and help her maintain her regular physical activity. She has a vacation planned in August so this POC is extended to accommodate her planned travel . Physical Therapy Plan Frequency and Duration Frequency of Treatment 1-2x/week Duration of Treatment 10 weeks Plan of Care Start Date 08/18/21 Plan of Care End Date 10/27/21 Therapeutic Interventions Therapeutic Interventions Balance Training,Gait Training ,Home Exercise Program,Manual Therapy,Neuromuscular Re- education,Self-Care/Home Management,Soft Tissue Mobilization,Therapeutic Activities,Therapeutic Exercises Modalities Cold Pack/Ice Massage,Electric Stimulation,Hot Packs Next Visit Focus/Plan Next Note Type Treatment Note Next Visit Plan review initial HEP and initiate hip strengthening. consider 6MWT for baseline assessment. initiate balance training.
--- NOTE | 2021-08-24 14:49 | PT.OTN ---
Current Diagnoses Pain in right hip (08/24/21) Difficulty in walking, not elsewhere classified (08/24/21) Physical Therapy Treatment Note PT-OP-A Visit Information Start: 08/17/21 16:18 Freq: Status: Active Protocol: Document 08/24/21 13:46 AW (Rec: 08/24/21 14:49 AW [id number]) Out-Patient Physical Therapy Visit Information Visit Information Visit Type Treatment Note Visit Start Time 13:45 Visit Stop Time 14:28 Total Visit Minutes 43 Visit Number 2 Evaluation Information Evaluation Date 08/18/21 PT-OP-B Current Condition Start: 08/17/21 16:18 Freq: Status: Active Protocol: Document 08/18/21 09:45 AW (Rec: 08/18/21 08:49 AW [id number]) Current Condition History of Current Condition Onset Date 10 days Current Complaints R hip pain History of Current Condition Lauren has been doing a lot of yard work lately and noticed R posterior hip pain about 10 days ago with gradual onset but has been worsening. Has not had any hip pain before. Up stairs is the worst. Slopes are ok. Took ibuprofen one day and does not like to take medication. Pain is not disturbing sleep very much. Worse with activity. She likes to walk up [place] 2-3 times per week. History of left femur fracture while skiing when she was 40 yo. Pt has osteoporosis. Went off fosomax in April and is awaiting repeat DEXA. She has had a Torres's cyst left knee 30 years but it is recently more swollen. She has a leftward lumbar scoliotic curve. Her left leg is shorter and she uses a heel lift in her shoes to compensate. Prior Treatments and Tests No imaging of this hip. Pt had PT previously after wrist fracture 3 years ago which resulted from a fall. Treatment Goals Patient/Caregiver Goals Leaving August 30 for a trip - driving to [place] and flying to [place]. She hopes to be in good shape for her trip. Wants to keep walking, play golf, keep hiking without pain . Personal Factors Other Personal Factors That May Effect High level of activity Therapy/Recovery bolsters prognosis. PT-OP-C Subjective Start: 08/17/21 16:18 Freq: Status: Active Protocol: Document 08/24/21 13:46 AW (Rec: 08/24/21 14:49 AW [id number]) OP-PT Subjective Patient Comments Patient Comments I walked up [place] last weekend and was sore for a day afterward. Patient Reported Progress Same PT-OP-E Functional Tests Start: 08/17/21 16:18 Freq: Status: Active Protocol: Document 08/18/21 09:45 AW (Rec: 08/18/21 13:42 AW [id number]) Functional Tests Functional Gait Assessment Score 24 - copy scanned to EMR Functional Gait Assessment Impairment 20 to <40% Impaired (Score 19- Rating 24) PT-OP-F Manual Assessment Start: 08/17/21 16:18 Freq: Status: Active Protocol: Document 08/18/21 09:45 AW (Rec: 08/21/21 17:22 AW [id number]) Manual Assessments Soft Tissue Assessment Soft Tissue Mobility Assessment TTP at deep external rotators of the right hip PT-OP-G Mobility & Gait Start: 08/17/21 16:18 Freq: Status: Active Protocol: Document 08/18/21 09:45 AW (Rec: 08/22/21 08:42 AW [id number]) OP Gait Assessment Comments Gait Comments Short step length bilaterally. Gait quality is choppy but without evidence of imbalance. Stair Climbing Evaluation Comments Stair Climbing Comments Step over step with definite use of hand rail. Pt reports no pain today but states pain is typically most irritable with stairs. PT-OP-J Posture/Palpation/Skin Start: 08/17/21 16:18 Freq: Status: Active Protocol: Document 08/18/21 09:45 AW (Rec: 08/22/21 08:42 AW [id number]) Posture Evaluation Comments Posture Comments All pelvic bony landmarks higher on the right due to lumbar levoscoliosis and LLE shorter than RLE. Palpation Assessment Location right hip Palpation Findings Tenderness Palpation Details TTP at deep external rotators. 3/10 pain with deep palpation . PT-OP-K Range of Motion Start: 08/17/21 16:18 Freq: Status: Active Protocol: Document 08/18/21 09:45 AW (Rec: 08/22/21 08:42 AW [id number]) Hip Goniometric Range of Motion Hip right Hip ROM WFL Yes Comments End range PROM ER and flexion are painful. Hip ROM Limitations Hip ROM Limitations Soft Tissue Tightness,Pain Comments No pain with any end-range PROM L hip. PT-OP-M Strength Start: 08/17/21 16:18 Freq: Status: Active Protocol: Document 08/18/21 09:45 AW (Rec: 08/22/21 08:42 AW [id number]) Hip Strength Hip Manual Muscle Testing bilat Flexion (L2) 4+ Good+ Extension (S1) 4 Good Abduction 4 Good External Rotation 4+ Good+ Internal Rotation 4+ Good+ Comments R hip IR MMT reproduces pain in posterior hip. Knee Strength Knee Manual Muscle Testing bilat Flexion (S2) 4+ Good+ Extension (L3) 5 Normal PT-OP-Q Treatments Start: 08/17/21 16:18 Freq: Status: Active Protocol: Document 08/24/21 13:46 AW (Rec: 08/24/21 14:49 AW [id number]) Therapeutic Exercises Supine Exercises bridge Supine Exercise Name bridge Reps/Minutes 3SH x 10 Comments cued ppt, slow controlled segmental movement; HEP piriformis stretch Supine Exercise Name piriformis stretch Side bilateral Reps/Minutes 30 SH x 4 Comments HEP review; cued pain free range Sidelying Exercises clamshell Sidelying Exercise Name clamshell Side bilateral Reps/Minutes 2x15 Comments HEP Sitting Exercises HS stretch Sitting Exercise Name HS stretch Side bilateral Reps/Minutes 30 SH x 4 Comments HEP review; good ind setup Standing Exercises lateral band walk Standing Exercise Name lateral band walk Resistance red loop Reps/Minutes 15' lap x 3 Comments HEP AROM hip Standing Exercise Name AROM hip - ext and abd Side bilateral Reps/Minutes 2x10 Comments cued upright posture, true hip movement Neuro Re-Education Treatment Balance Activities NBOS Details NBOS Surface firm Equipment near rail but not touched Reps/Duration 5 min Comments - EO - EC - EO head turns - EC head turns Self-Care/Home Management Treatment Education Patient Education Home Exercise Program Other Education Issued HEP for pt to take on vacation with her. Advised pt to discontinue any exercises that irritated her hip pain. PT-OP-T Assessment and Plan Start: 08/17/21 16:18 Freq: Status: Active Protocol: Document 08/24/21 13:46 AW (Rec: 08/24/21 14:49 AW [id number]) Physical Therapy Assessment Goals Three Impairment balance Senior Front End Engineer Goal (LTG) Pt will improve FGA score from 24/30 to 27/30 or greater as a measure of improved dynamic balance. LTG Duration 10 weeks - 10/27/21 Two Impairment pain with stair climbing Senior Front End Engineer Goal (LTG) Pt will ascend/descend 28 steps two times with use of hand rail as needed without increase in baseline pain. LTG Duration 10 weeks - 10/27/21 One Impairment lacks HEP Short Term Goal (STG) Pt will be instructed in HEP for hip ROM, hip strength, and balance to support therapy services provided in clinic. STG Duration 5 weeks - 08/23/21 Senior Front End Engineer Goal (LTG) Pt will be independent with HEP to promote return to regular activity without pain. LTG Duration 10 weeks - 10/27/21 Assessment Summary Assessment Lauren is highly engaged and responds well to education on anatomy, rationale for exercises, and balance systems . She is going on a planned vacation and will check in again when she returns. Physical Therapy Plan Frequency and Duration Frequency of Treatment 1-2x/week Duration of Treatment 10 weeks Plan of Care Start Date 08/18/21 Plan of Care End Date 10/27/21 Therapeutic Interventions Therapeutic Interventions Balance Training,Gait Training ,Home Exercise Program,Manual Therapy,Neuromuscular Re- education,Self-Care/Home Management,Soft Tissue Mobilization,Therapeutic Activities,Therapeutic Exercises Modalities Cold Pack/Ice Massage,Electric Stimulation,Hot Packs Next Visit Focus/Plan Next Note Type Treatment Note Next Visit Plan review HEP. add sit to stand vs tap squat. consider 6MWT for baseline assessment. continue balance training.
--- NOTE | 2021-09-21 10:20 | PT.OTN ---
Current Diagnoses Pain in right hip (09/21/21) Difficulty in walking, not elsewhere classified (09/21/21) Physical Therapy Treatment Note PT-OP-A Visit Information Start: 08/17/21 16:18 Freq: Status: Active Protocol: Document 09/21/21 09:35 MA (Rec: 09/21/21 10:19 MA [id number]) Out-Patient Physical Therapy Visit Information Visit Information Visit Type Treatment Note Visit Start Time 09:25 Visit Stop Time 10:15 Total Visit Minutes 50 Visit Number 3 Number of EXTRUDER OPERATOR HORIZONTAL Visits 1 PT-OP-B Current Condition Start: 08/17/21 16:18 Freq: Status: Active Protocol: Document 08/18/21 09:45 AW (Rec: 08/18/21 08:49 AW [id number]) Current Condition History of Current Condition Onset Date 10 days Current Complaints R hip pain History of Current Condition Lauren has been doing a lot of yard work lately and noticed R posterior hip pain about 10 days ago with gradual onset but has been worsening. Has not had any hip pain before. Up stairs is the worst. Slopes are ok. Took ibuprofen one day and does not like to take medication. Pain is not disturbing sleep very much. Worse with activity. She likes to walk up [place] 2-3 times per week. History of left femur fracture while skiing when she was 40 yo. Pt has osteoporosis. Went off fosomax in April and is awaiting repeat DEXA. She has had a Torres's cyst left knee 30 years but it is recently more swollen. She has a leftward lumbar scoliotic curve. Her left leg is shorter and she uses a heel lift in her shoes to compensate. Prior Treatments and Tests No imaging of this hip. Pt had PT previously after wrist fracture 3 years ago which resulted from a fall. Treatment Goals Patient/Caregiver Goals Leaving August 30 for a trip - driving to [place] and flying to [place]. She hopes to be in good shape for her trip. Wants to keep walking, play golf, keep hiking without pain . Personal Factors Other Personal Factors That May Effect High level of activity Therapy/Recovery bolsters prognosis. PT-OP-C Subjective Start: 08/17/21 16:18 Freq: Status: Active Protocol: Document 09/21/21 09:35 MA (Rec: 09/21/21 10:19 MA [id number]) OP-PT Subjective Patient Comments Patient Comments Pt did her exercises on vacation but her hip is still about the same. Her hip was always a little more sore after walking with her daughter and going up/down stairs at her daughter's house PT-OP-E Functional Tests Start: 08/17/21 16:18 Freq: Status: Active Protocol: Document 09/21/21 09:35 MA (Rec: 09/21/21 10:19 MA [id number]) Functional Tests 6 Minute Walk Test Distance 1341 ft PT-OP-F Manual Assessment Start: 08/17/21 16:18 Freq: Status: Active Protocol: Document 08/18/21 09:45 AW (Rec: 08/21/21 17:22 AW [id number]) Manual Assessments Soft Tissue Assessment Soft Tissue Mobility Assessment TTP at deep external rotators of the right hip PT-OP-G Mobility & Gait Start: 08/17/21 16:18 Freq: Status: Active Protocol: Document 08/18/21 09:45 AW (Rec: 08/22/21 08:42 AW [id number]) OP Gait Assessment Comments Gait Comments Short step length bilaterally. Gait quality is choppy but without evidence of imbalance. Stair Climbing Evaluation Comments Stair Climbing Comments Step over step with definite use of hand rail. Pt reports no pain today but states pain is typically most irritable with stairs. PT-OP-J Posture/Palpation/Skin Start: 08/17/21 16:18 Freq: Status: Active Protocol: Document 08/18/21 09:45 AW (Rec: 08/22/21 08:42 AW [id number]) Posture Evaluation Comments Posture Comments All pelvic bony landmarks higher on the right due to lumbar levoscoliosis and LLE shorter than RLE. Palpation Assessment Location right hip Palpation Findings Tenderness Palpation Details TTP at deep external rotators. 3/10 pain with deep palpation . PT-OP-K Range of Motion Start: 08/17/21 16:18 Freq: Status: Active Protocol: Document 08/18/21 09:45 AW (Rec: 08/22/21 08:42 AW [id number]) Hip Goniometric Range of Motion Hip right Hip ROM WFL Yes Comments End range PROM ER and flexion are painful. Hip ROM Limitations Hip ROM Limitations Soft Tissue Tightness,Pain Comments No pain with any end-range PROM L hip. PT-OP-M Strength Start: 08/17/21 16:18 Freq: Status: Active Protocol: Document 08/18/21 09:45 AW (Rec: 08/22/21 08:42 AW [id number]) Hip Strength Hip Manual Muscle Testing bilat Flexion (L2) 4+ Good+ Extension (S1) 4 Good Abduction 4 Good External Rotation 4+ Good+ Internal Rotation 4+ Good+ Comments R hip IR MMT reproduces pain in posterior hip. Knee Strength Knee Manual Muscle Testing bilat Flexion (S2) 4+ Good+ Extension (L3) 5 Normal PT-OP-Q Treatments Start: 08/17/21 16:18 Freq: Status: Active Protocol: Document 09/21/21 09:35 MA (Rec: 09/21/21 10:19 MA [id number]) Therapeutic Exercises Supine Exercises bridge Supine Exercise Name bridge Reps/Minutes 10x5 Comments cued ppt, slow controlled segmental movement; HEP piriformis stretch Supine Exercise Name piriformis stretch Side bilateral Reps/Minutes 30 SH x 4 Comments in seated this session Sidelying Exercises clamshell Sidelying Exercise Name clamshell Side bilateral Reps/Minutes 2x15 Comments HEP Sitting Exercises HS stretch Sitting Exercise Name HS stretch Side bilateral Reps/Minutes 30 SH x 4 Comments HEP review; good ind setup Standing Exercises Sit<>stand Side bilateral Reps/Minutes x10 Comments added to HEP Manual Therapy Treatment Soft Tissue Mobilization RLE Body Location glutes, ITB Mobilization Type Myofascial Release,Sustained Pressure,Trigger Point Release Intensity/Depth Moderate Body Position Supine Comments supine and sidelying Self-Care/Home Management Treatment Education Patient Education Home Exercise Program Other Education Added sit<>stands and self- rolling ITB to HEP. Educated pt on importance of stretching before & after longer walks/ hikes. PT-OP-T Assessment and Plan Start: 08/17/21 16:18 Freq: Status: Active Protocol: Document 09/21/21 09:35 MA (Rec: 09/21/21 10:19 MA [id number]) Physical Therapy Assessment Goals Three Impairment balance Jail Goal (LTG) Pt will improve FGA score from 24/30 to 27/30 or greater as a measure of improved dynamic balance. LTG Duration 10 weeks - 10/27/21 Two Impairment pain with stair climbing Electrical High Tension Tester Goal (LTG) Pt will ascend/descend 28 steps two times with use of hand rail as needed without increase in baseline pain. LTG Duration 10 weeks - 10/27/21 One Impairment lacks HEP Short Term Goal (STG) Pt will be instructed in HEP for hip ROM, hip strength, and balance to support therapy services provided in clinic. STG Duration 5 weeks - 08/23/21 Jail Goal (LTG) Pt will be independent with HEP to promote return to regular activity without pain. LTG Duration 10 weeks - 10/27/21 Assessment Summary Assessment Pt is able to complete 1341 ft during 6MWT. She is able to perform all HEP exercises with good form. Discussed stretching before and after longer walks and adding self- rolling ITB and sit<>stands without using UEs to HEP. At the end of session, pt brings up stairs causing increased pain only when stepping up. Will assess stair climbing next session. Physical Therapy Plan Frequency and Duration Frequency of Treatment 1-2x/week Duration of Treatment 10 weeks Plan of Care Start Date 08/18/21 Plan of Care End Date 10/27/21 Therapeutic Interventions Therapeutic Interventions Balance Training,Gait Training ,Home Exercise Program,Manual Therapy,Neuromuscular Re- education,Self-Care/Home Management,Soft Tissue Mobilization,Therapeutic Activities,Therapeutic Exercises Modalities Cold Pack/Ice Massage,Electric Stimulation,Hot Packs Next Visit Focus/Plan Next Note Type Treatment Note Next Visit Plan Assess stairs; possibly try step ups using 4 step. Review HEP. continue balance training.
--- NOTE | 2021-10-11 09:46 | PT.OTN ---
Current Diagnoses Pain in right hip (10/11/21) Difficulty in walking, not elsewhere classified (10/11/21) Physical Therapy Treatment Note PT-OP-A Visit Information Start: 08/17/21 16:18 Freq: Status: Active Protocol: Document 10/11/21 08:59 AW (Rec: 10/11/21 09:46 AW [id number]) Out-Patient Physical Therapy Visit Information Visit Information Visit Type Treatment Note Visit Start Time 09:00 Visit Stop Time 09:45 Total Visit Minutes 45 Visit Number 4 Number of SHIRT SORTER Visits 0 Evaluation Information Evaluation Date 08/18/21 PT-OP-B Current Condition Start: 08/17/21 16:18 Freq: Status: Active Protocol: Document 08/18/21 09:45 AW (Rec: 08/18/21 08:49 AW [id number]) Current Condition History of Current Condition Onset Date 10 days Current Complaints R hip pain History of Current Condition Lauren has been doing a lot of yard work lately and noticed R posterior hip pain about 10 days ago with gradual onset but has been worsening. Has not had any hip pain before. Up stairs is the worst. Slopes are ok. Took ibuprofen one day and does not like to take medication. Pain is not disturbing sleep very much. Worse with activity. She likes to walk up [place] 2-3 times per week. History of left femur fracture while skiing when she was 40 yo. Pt has osteoporosis. Went off fosomax in April and is awaiting repeat DEXA. She has had a Torres's cyst left knee 30 years but it is recently more swollen. She has a leftward lumbar scoliotic curve. Her left leg is shorter and she uses a heel lift in her shoes to compensate. Prior Treatments and Tests No imaging of this hip. Pt had PT previously after wrist fracture 3 years ago which resulted from a fall. Treatment Goals Patient/Caregiver Goals Leaving August 30 for a trip - driving to [place] and flying to [place]. She hopes to be in good shape for her trip. Wants to keep walking, play golf, keep hiking without pain . Personal Factors Other Personal Factors That May Effect High level of activity Therapy/Recovery bolsters prognosis. PT-OP-C Subjective Start: 08/17/21 16:18 Freq: Status: Active Protocol: Document 10/11/21 08:59 AW (Rec: 10/11/21 09:46 AW [id number]) OP-PT Subjective Patient Comments Patient Comments Feeling better overall. Has gone up [place] but took it easy and did not go all the way to the top. PT-OP-E Functional Tests Start: 08/17/21 16:18 Freq: Status: Active Protocol: Document 09/21/21 09:35 MA (Rec: 09/21/21 10:19 MA [id number]) Functional Tests 6 Minute Walk Test Distance 1341 ft PT-OP-F Manual Assessment Start: 08/17/21 16:18 Freq: Status: Active Protocol: Document 08/18/21 09:45 AW (Rec: 08/21/21 17:22 AW [id number]) Manual Assessments Soft Tissue Assessment Soft Tissue Mobility Assessment TTP at deep external rotators of the right hip PT-OP-G Mobility & Gait Start: 08/17/21 16:18 Freq: Status: Active Protocol: Document 08/18/21 09:45 AW (Rec: 08/22/21 08:42 AW [id number]) OP Gait Assessment Comments Gait Comments Short step length bilaterally. Gait quality is choppy but without evidence of imbalance. Stair Climbing Evaluation Comments Stair Climbing Comments Step over step with definite use of hand rail. Pt reports no pain today but states pain is typically most irritable with stairs. PT-OP-J Posture/Palpation/Skin Start: 08/17/21 16:18 Freq: Status: Active Protocol: Document 08/18/21 09:45 AW (Rec: 08/22/21 08:42 AW [id number]) Posture Evaluation Comments Posture Comments All pelvic bony landmarks higher on the right due to lumbar levoscoliosis and LLE shorter than RLE. Palpation Assessment Location right hip Palpation Findings Tenderness Palpation Details TTP at deep external rotators. 3/10 pain with deep palpation . PT-OP-K Range of Motion Start: 08/17/21 16:18 Freq: Status: Active Protocol: Document 08/18/21 09:45 AW (Rec: 08/22/21 08:42 AW [id number]) Hip Goniometric Range of Motion Hip right Hip ROM WFL Yes Comments End range PROM ER and flexion are painful. Hip ROM Limitations Hip ROM Limitations Soft Tissue Tightness,Pain Comments No pain with any end-range PROM L hip. PT-OP-M Strength Start: 08/17/21 16:18 Freq: Status: Active Protocol: Document 08/18/21 09:45 AW (Rec: 08/22/21 08:42 AW [id number]) Hip Strength Hip Manual Muscle Testing bilat Flexion (L2) 4+ Good+ Extension (S1) 4 Good Abduction 4 Good External Rotation 4+ Good+ Internal Rotation 4+ Good+ Comments R hip IR MMT reproduces pain in posterior hip. Knee Strength Knee Manual Muscle Testing bilat Flexion (S2) 4+ Good+ Extension (L3) 5 Normal PT-OP-Q Treatments Start: 08/17/21 16:18 Freq: Status: Active Protocol: Document 10/11/21 08:59 AW (Rec: 10/11/21 09:46 AW [id number]) Cardio Equipment Recumbent Elliptical ([employer]) Duration (Minutes) 5 Resistance 5 Seat Position 1 Other no hip irritation Therapeutic Exercises Supine Exercises hip flexor stretch Supine Exercise Name hip flexor stretch - jese test position Side right Reps/Minutes pt has trigger point R hip flexor Comments STM hip flexor during stretch piriformis stretch Supine Exercise Name piriformis stretch Side bilateral Reps/Minutes 30 SH x 4 Comments in seated and supine; HEP review Standing Exercises step up Standing Exercise Name step up - fwd, lateral Side bilateral Resistance unilat rail Equipment Used 4 step Reps/Minutes 2x12 each direction Comments cued weight over stance leg, glute drive hip hike Standing Exercise Name hip hike Side bilateral Equipment Used 4 step; 6 step Reps/Minutes 2x15 Comments HEP Sit<>stand Side bilateral Reps/Minutes 4x10 Comments 1st set std ht chair; 2nd set w/ band at knees; 3-4 sets from 16 lateral band walk Standing Exercise Name lateral band walk Resistance red loop Reps/Minutes 15' lap x 3 Comments HEP review Gait Training Gait Activity stairs Description stairs Device Used uni rail Level of Assistance 4 step, 6 step Treatment Focus assessment Comments Knee alignment looks good. Clear hip drop contralateral limb in stance. Self-Care/Home Management Treatment Education Patient Education Home Exercise Program Other Education Added hip hikes and lateral/ fwd step ups PT-OP-T Assessment and Plan Start: 08/17/21 16:18 Freq: Status: Active Protocol: Document 10/11/21 08:59 AW (Rec: 10/11/21 09:46 AW [id number]) Physical Therapy Assessment Goals Three Impairment balance Half-Way Goal (LTG) Pt will improve FGA score from 24/30 to 27/30 or greater as a measure of improved dynamic balance. LTG Duration 10 weeks - 10/27/21 Two Impairment pain with stair climbing Half-Way Goal (LTG) Pt will ascend/descend 28 steps two times with use of hand rail as needed without increase in baseline pain. LTG Duration 10 weeks - 10/27/21 One Impairment lacks HEP Short Term Goal (STG) Pt will be instructed in HEP for hip ROM, hip strength, and balance to support therapy services provided in clinic. STG Duration 5 weeks - 08/23/21 Half-Way Goal (LTG) Pt will be independent with HEP to promote return to regular activity without pain. LTG Duration 10 weeks - 10/27/21 Assessment Summary Assessment Pt able to complete sit to stand with band at knees to correct knee valgus from std height chair and 16 block. Symptoms overall are improving . Continued focus on lateral hip strength. Will re-assess stairs at next visit Physical Therapy Plan Frequency and Duration Frequency of Treatment 1-2x/week Duration of Treatment 10 weeks Plan of Care Start Date 08/18/21 Plan of Care End Date 10/27/21 Therapeutic Interventions Therapeutic Interventions Balance Training,Gait Training ,Home Exercise Program,Manual Therapy,Neuromuscular Re- education,Self-Care/Home Management,Soft Tissue Mobilization,Therapeutic Activities,Therapeutic Exercises Modalities Cold Pack/Ice Massage,Electric Stimulation,Hot Packs Next Visit Focus/Plan Next Note Type Treatment Note Next Visit Plan assess response to today's tx; Re-assess stairs; continue balance training - uneven
--- NOTE | 2021-10-18 12:30 | PT.OTN ---
Current Diagnoses Pain in right hip (10/18/21) Difficulty in walking, not elsewhere classified (10/18/21) Physical Therapy Treatment Note PT-OP-A Visit Information Start: 08/17/21 16:18 Freq: Status: Active Protocol: Document 10/18/21 08:57 AW (Rec: 10/18/21 09:45 AW [id number]) Out-Patient Physical Therapy Visit Information Visit Information Visit Type Treatment Note Visit Start Time 09:00 Visit Stop Time 09:40 Total Visit Minutes 40 Visit Number 5 Number of TURBINE ATTENDANT Visits 0 PT-OP-B Current Condition Start: 08/17/21 16:18 Freq: Status: Active Protocol: Document 08/18/21 09:45 AW (Rec: 08/18/21 08:49 AW [id number]) Current Condition History of Current Condition Onset Date 10 days Current Complaints R hip pain History of Current Condition Lauren has been doing a lot of yard work lately and noticed R posterior hip pain about 10 days ago with gradual onset but has been worsening. Has not had any hip pain before. Up stairs is the worst. Slopes are ok. Took ibuprofen one day and does not like to take medication. Pain is not disturbing sleep very much. Worse with activity. She likes to walk up [place] 2-3 times per week. History of left femur fracture while skiing when she was 40 yo. Pt has osteoporosis. Went off fosomax in April and is awaiting repeat DEXA. She has had a Torres's cyst left knee 30 years but it is recently more swollen. She has a leftward lumbar scoliotic curve. Her left leg is shorter and she uses a heel lift in her shoes to compensate. Prior Treatments and Tests No imaging of this hip. Pt had PT previously after wrist fracture 3 years ago which resulted from a fall. Treatment Goals Patient/Caregiver Goals Leaving August 30 for a trip - driving to [place] and flying to [place]. She hopes to be in good shape for her trip. Wants to keep walking, play golf, keep hiking without pain . Personal Factors Other Personal Factors That May Effect High level of activity Therapy/Recovery bolsters prognosis. PT-OP-C Subjective Start: 08/17/21 16:18 Freq: Status: Active Protocol: Document 10/18/21 08:57 AW (Rec: 10/18/21 09:45 AW [id number]) OP-PT Subjective Patient Comments Patient Comments Symptoms are up and down. Feels like two steps forward, one step back. Sometimes stairs are ok and sometimes aware of hip irritation. Patient Reported Progress Same PT-OP-E Functional Tests Start: 08/17/21 16:18 Freq: Status: Active Protocol: Document 09/21/21 09:35 MA (Rec: 09/21/21 10:19 MA [id number]) Functional Tests 6 Minute Walk Test Distance 1341 ft PT-OP-F Manual Assessment Start: 08/17/21 16:18 Freq: Status: Active Protocol: Document 08/18/21 09:45 AW (Rec: 08/21/21 17:22 AW [id number]) Manual Assessments Soft Tissue Assessment Soft Tissue Mobility Assessment TTP at deep external rotators of the right hip PT-OP-G Mobility & Gait Start: 08/17/21 16:18 Freq: Status: Active Protocol: Document 08/18/21 09:45 AW (Rec: 08/22/21 08:42 AW [id number]) OP Gait Assessment Comments Gait Comments Short step length bilaterally. Gait quality is choppy but without evidence of imbalance. Stair Climbing Evaluation Comments Stair Climbing Comments Step over step with definite use of hand rail. Pt reports no pain today but states pain is typically most irritable with stairs. PT-OP-J Posture/Palpation/Skin Start: 08/17/21 16:18 Freq: Status: Active Protocol: Document 08/18/21 09:45 AW (Rec: 08/22/21 08:42 AW [id number]) Posture Evaluation Comments Posture Comments All pelvic bony landmarks higher on the right due to lumbar levoscoliosis and LLE shorter than RLE. Palpation Assessment Location right hip Palpation Findings Tenderness Palpation Details TTP at deep external rotators. 3/10 pain with deep palpation . PT-OP-K Range of Motion Start: 08/17/21 16:18 Freq: Status: Active Protocol: Document 08/18/21 09:45 AW (Rec: 08/22/21 08:42 AW [id number]) Hip Goniometric Range of Motion Hip right Hip ROM WFL Yes Comments End range PROM ER and flexion are painful. Hip ROM Limitations Hip ROM Limitations Soft Tissue Tightness,Pain Comments No pain with any end-range PROM L hip. PT-OP-M Strength Start: 08/17/21 16:18 Freq: Status: Active Protocol: Document 08/18/21 09:45 AW (Rec: 08/22/21 08:42 AW [id number]) Hip Strength Hip Manual Muscle Testing bilat Flexion (L2) 4+ Good+ Extension (S1) 4 Good Abduction 4 Good External Rotation 4+ Good+ Internal Rotation 4+ Good+ Comments R hip IR MMT reproduces pain in posterior hip. Knee Strength Knee Manual Muscle Testing bilat Flexion (S2) 4+ Good+ Extension (L3) 5 Normal PT-OP-Q Treatments Start: 08/17/21 16:18 Freq: Status: Active Protocol: Document 10/18/21 08:57 AW (Rec: 10/18/21 09:45 AW [id number]) Cardio Equipment Recumbent Elliptical ([employer]) Duration (Minutes) 5 Resistance 6 Seat Position 1 Other no hip irritation Therapeutic Exercises Supine Exercises hip flexor stretch Supine Exercise Name hip flexor stretch - jese test position Side right Reps/Minutes pt has trigger point R hip flexor Comments STM hip flexor during stretch bridge Supine Exercise Name bridge Equipment Used TB 3 around knees Reps/Minutes 10x5 Comments cued ppt, slow controlled segmental movement; HEP Standing Exercises SLS Standing Exercise Name SLS Side bilateral Reps/Minutes 15 sec BLE; increased shear bilaterally Comments cued glute drive; HEP step up Standing Exercise Name step up - fwd, lateral Side bilateral Resistance unilat rail Equipment Used 6 step Reps/Minutes 2x12 each direction Comments no irritation; HEP review hip hike Standing Exercise Name hip hike Side bilateral Equipment Used 6 step Reps/Minutes 2x15 Comments HEP review Manual Therapy Treatment Soft Tissue Mobilization RLE Body Location glutes, ITB Mobilization Type Myofascial Release,Sustained Pressure,Trigger Point Release Intensity/Depth Moderate Body Position Sidelying Joint Mobilizations R hip Joint R hip Direction inferior, lateral Grade III Body Position Supine Self-Care/Home Management Treatment Education Patient Education Home Exercise Program Other Education Added SLS PT-OP-T Assessment and Plan Start: 08/17/21 16:18 Freq: Status: Active Protocol: Document 10/18/21 08:57 AW (Rec: 10/18/21 09:45 AW [id number]) Physical Therapy Assessment Goals Three Impairment balance Longterm Goal (LTG) Pt will improve FGA score from 24/30 to 27/30 or greater as a measure of improved dynamic balance. LTG Duration 10 weeks - 10/27/21 Two Impairment pain with stair climbing Longterm Goal (LTG) Pt will ascend/descend 28 steps two times with use of hand rail as needed without increase in baseline pain. LTG Duration 10 weeks - 10/27/21 One Impairment lacks HEP Short Term Goal (STG) Pt will be instructed in HEP for hip ROM, hip strength, and balance to support therapy services provided in clinic. STG Duration 5 weeks - 08/23/21 Insurance Compliance Analyst Goal (LTG) Pt will be independent with HEP to promote return to regular activity without pain. LTG Duration 10 weeks - 10/27/21 Assessment Summary Assessment Pt tolerates ther ex well. Focused more on strengthening abductors and external rotators today. Pt has significant shear with single leg stance but is able to maintain position at least 15 seconds on each leg. Will continue to work on single leg strength. Physical Therapy Plan Frequency and Duration Frequency of Treatment 1-2x/week Duration of Treatment 10 weeks Plan of Care Start Date 08/18/21 Plan of Care End Date 10/27/21 Therapeutic Interventions Therapeutic Interventions Balance Training,Gait Training ,Home Exercise Program,Manual Therapy,Neuromuscular Re- education,Self-Care/Home Management,Soft Tissue Mobilization,Therapeutic Activities,Therapeutic Exercises Modalities Cold Pack/Ice Massage,Electric Stimulation,Hot Packs Next Visit Focus/Plan Next Note Type Treatment Note Next Visit Plan assess response to today's tx; Re-assess SLS, stairs; continue balance training - uneven
--- NOTE | 2021-11-09 09:44 | PT.OTN ---
Current Diagnoses Pain in right hip (11/09/21) Difficulty in walking, not elsewhere classified (11/09/21) Physical Therapy Treatment Note PT-OP-A Visit Information Start: 08/17/21 16:18 Freq: Status: Active Protocol: Document 11/09/21 08:57 AW (Rec: 11/09/21 09:44 AW [id number]) Out-Patient Physical Therapy Visit Information Visit Information Visit Type Treatment Note Visit Start Time 09:00 Visit Stop Time 09:45 Total Visit Minutes 45 Visit Number 6 Number of FIREARMS ASSEMBLY SUPERVISOR Visits 0 Evaluation Information Evaluation Date 08/18/21 PT-OP-B Current Condition Start: 08/17/21 16:18 Freq: Status: Active Protocol: Document 08/18/21 09:45 AW (Rec: 08/18/21 08:49 AW [id number]) Current Condition History of Current Condition Onset Date 10 days Current Complaints R hip pain History of Current Condition Lauren has been doing a lot of yard work lately and noticed R posterior hip pain about 10 days ago with gradual onset but has been worsening. Has not had any hip pain before. Up stairs is the worst. Slopes are ok. Took ibuprofen one day and does not like to take medication. Pain is not disturbing sleep very much. Worse with activity. She likes to walk up [place] 2-3 times per week. History of left femur fracture while skiing when she was 40 yo. Pt has osteoporosis. Went off fosomax in April and is awaiting repeat DEXA. She has had a Torres's cyst left knee 30 years but it is recently more swollen. She has a leftward lumbar scoliotic curve. Her left leg is shorter and she uses a heel lift in her shoes to compensate. Prior Treatments and Tests No imaging of this hip. Pt had PT previously after wrist fracture 3 years ago which resulted from a fall. Treatment Goals Patient/Caregiver Goals Leaving August 30 for a trip - driving to [place] and flying to [place]. She hopes to be in good shape for her trip. Wants to keep walking, play golf, keep hiking without pain . Personal Factors Other Personal Factors That May Effect High level of activity Therapy/Recovery bolsters prognosis. PT-OP-C Subjective Start: 08/17/21 16:18 Freq: Status: Active Protocol: Document 11/09/21 08:57 AW (Rec: 11/09/21 09:44 AW [id number]) OP-PT Subjective Patient Comments Patient Comments Right hip is feeling better, even on stairs. Left hip now has a sharp pain in the back which seems position-dependent . Worse when side stepping Patient Reported Progress Improving PT-OP-E Functional Tests Start: 08/17/21 16:18 Freq: Status: Active Protocol: Document 09/21/21 09:35 MA (Rec: 09/21/21 10:19 MA [id number]) Functional Tests 6 Minute Walk Test Distance 1341 ft PT-OP-F Manual Assessment Start: 08/17/21 16:18 Freq: Status: Active Protocol: Document 08/18/21 09:45 AW (Rec: 08/21/21 17:22 AW [id number]) Manual Assessments Soft Tissue Assessment Soft Tissue Mobility Assessment TTP at deep external rotators of the right hip PT-OP-G Mobility & Gait Start: 08/17/21 16:18 Freq: Status: Active Protocol: Document 08/18/21 09:45 AW (Rec: 08/22/21 08:42 AW [id number]) OP Gait Assessment Comments Gait Comments Short step length bilaterally. Gait quality is choppy but without evidence of imbalance. Stair Climbing Evaluation Comments Stair Climbing Comments Step over step with definite use of hand rail. Pt reports no pain today but states pain is typically most irritable with stairs. PT-OP-J Posture/Palpation/Skin Start: 08/17/21 16:18 Freq: Status: Active Protocol: Document 08/18/21 09:45 AW (Rec: 08/22/21 08:42 AW [id number]) Posture Evaluation Comments Posture Comments All pelvic bony landmarks higher on the right due to lumbar levoscoliosis and LLE shorter than RLE. Palpation Assessment Location right hip Palpation Findings Tenderness Palpation Details TTP at deep external rotators. 3/10 pain with deep palpation . PT-OP-K Range of Motion Start: 08/17/21 16:18 Freq: Status: Active Protocol: Document 08/18/21 09:45 AW (Rec: 08/22/21 08:42 AW [id number]) Hip Goniometric Range of Motion Hip right Hip ROM WFL Yes Comments End range PROM ER and flexion are painful. Hip ROM Limitations Hip ROM Limitations Soft Tissue Tightness,Pain Comments No pain with any end-range PROM L hip. PT-OP-M Strength Start: 08/17/21 16:18 Freq: Status: Active Protocol: Document 08/18/21 09:45 AW (Rec: 08/22/21 08:42 AW [id number]) Hip Strength Hip Manual Muscle Testing bilat Flexion (L2) 4+ Good+ Extension (S1) 4 Good Abduction 4 Good External Rotation 4+ Good+ Internal Rotation 4+ Good+ Comments R hip IR MMT reproduces pain in posterior hip. Knee Strength Knee Manual Muscle Testing bilat Flexion (S2) 4+ Good+ Extension (L3) 5 Normal PT-OP-Q Treatments Start: 08/17/21 16:18 Freq: Status: Active Protocol: Document 11/09/21 08:57 AW (Rec: 11/09/21 09:44 AW [id number]) Cardio Equipment Recumbent Elliptical ([employer]) Duration (Minutes) 5 Resistance 6 Seat Position 1 Other no hip irritation either side Therapeutic Exercises Supine Exercises bridge Supine Exercise Name bridge Equipment Used TB 3 around knees Reps/Minutes 10x5 Comments cued ppt, slow controlled segmental movement; HEP piriformis stretch Supine Exercise Name piriformis stretch Side bilateral Reps/Minutes 30 SH x 4 Comments in seated and supine; HEP review Standing Exercises SLS Standing Exercise Name SLS Side bilateral Reps/Minutes 30 sec BLE; increased shear bilaterally Comments cued glute drive; HEP Gait Training Gait Activity FGA Description FGA Device Used none Level of Assistance IND Comments 26/30 stairs Description stairs Device Used uni rail Level of Assistance 4 step Treatment Focus assessment Comments 48 4 steps with no rail. No reported hip pain. Manual Therapy Treatment Soft Tissue Mobilization L hip ER's Mobilization Type Rolling,Strumming Intensity/Depth Moderate Body Position Sidelying Comments STM + instruction in home use of tennis ball for self-STM Self-Care/Home Management Treatment Education Patient Education Home Exercise Program Other Education Added tennis ball self-STM PT-OP-T Assessment and Plan Start: 08/17/21 16:18 Freq: Status: Active Protocol: Document 11/09/21 08:57 AW (Rec: 11/09/21 09:44 AW [id number]) Physical Therapy Assessment Goals Three Impairment balance Process Worker Goal (LTG) Pt will improve FGA score from 24/30 to 27/30 or greater as a measure of improved dynamic balance. 11/09/21 - Pt scores 27/30 LTG Duration 11/09/21 GOAL MET Two Impairment pain with stair climbing Process Worker Goal (LTG) Pt will ascend/descend 28 steps two times with use of hand rail as needed without increase in baseline pain. LTG Duration 11/09/21 GOAL MET One Impairment lacks HEP Short Term Goal (STG) Pt will be instructed in HEP for hip ROM, hip strength, and balance to support therapy services provided in clinic. STG Duration 5 weeks - 08/23/21 Process Worker Goal (LTG) Pt will be independent with HEP to promote return to regular activity without pain. LTG Duration 11/09/21 GOAL MET Progress Towards Goals Progress Comments Pt has met all goals for her right hip. Balance is improved and she is navigating stairs without pain. However, she is now having left hip pain and would like to continue therapy for that. This PT contacted referring MD to update referral. Assessment Summary Assessment Right hip is doing well. Now pt is complaining of left hip pain. Did some manual work and stretching today to address and will revisit when referral is updated to include left hip. Physical Therapy Plan Frequency and Duration Frequency of Treatment 1-2x/week Duration of Treatment 2 months Plan of Care Start Date 11/09/21 Plan of Care End Date 01/10/22 Therapeutic Interventions Therapeutic Interventions Balance Training,Gait Training ,Home Exercise Program,Manual Therapy,Neuromuscular Re- education,Self-Care/Home Management,Soft Tissue Mobilization,Therapeutic Activities,Therapeutic Exercises Modalities Cold Pack/Ice Massage,Electric Stimulation,Hot Packs Next Visit Focus/Plan Next Note Type Treatment Note Next Visit Plan referral for L hip? Write goals for left
--- NOTE | 2021-11-09 09:44 | PT.OPPOC ---
Physical, Occupational & Speech Therapy At [facility] Current Diagnoses Pain in right hip (11/09/21) Difficulty in walking, not elsewhere classified (11/09/21) Visit Care Team Role Provider Type Marbin Grove MD Attending Provider Physician Family Provider Primary Care Provider Referring Provider Specialty: Internal Medicine Address: [address] [place] [address], [address], [facility] Email: [email or web address] Plan Of Care PT-OP-T Assessment and Plan Start: 08/17/21 16:18 Freq: Status: Active Protocol: Document 11/09/21 08:57 AW (Rec: 11/09/21 09:44 AW [id number]) Physical Therapy Assessment Goals Three Impairment balance High School Music Director Goal (LTG) Pt will improve FGA score from 24/30 to 27/30 or greater as a measure of improved dynamic balance. 11/09/21 - Pt scores 27/30 LTG Duration 11/09/21 GOAL MET Two Impairment pain with stair climbing [facility] Goal (LTG) Pt will ascend/descend 28 steps two times with use of hand rail as needed without increase in baseline pain. LTG Duration 11/09/21 GOAL MET One Impairment lacks HEP Short Term Goal (STG) Pt will be instructed in HEP for hip ROM, hip strength, and balance to support therapy services provided in clinic. STG Duration 5 weeks - 08/23/21 High School Music Director Goal (LTG) Pt will be independent with HEP to promote return to regular activity without pain. LTG Duration 11/09/21 GOAL MET Progress Towards Goals Progress Comments Pt has met all goals for her right hip. Balance is improved and she is navigating stairs without pain. However, she is now having left hip pain and would like to continue therapy for that. This PT contacted referring MD to update referral. Assessment Summary Assessment Right hip is doing well. Now pt is complaining of left hip pain. Did some manual work and stretching today to address and will revisit when referral is updated to include left hip. Physical Therapy Plan Frequency and Duration Frequency of Treatment 1-2x/week Duration of Treatment 2 months Plan of Care Start Date 11/09/21 Plan of Care End Date 01/10/22 Therapeutic Interventions Therapeutic Interventions Balance Training,Gait Training ,Home Exercise Program,Manual Therapy,Neuromuscular Re- education,Self-Care/Home Management,Soft Tissue Mobilization,Therapeutic Activities,Therapeutic Exercises Modalities Cold Pack/Ice Massage,Electric Stimulation,Hot Packs Next Visit Focus/Plan Next Note Type Treatment Note Next Visit Plan referral for L hip? Write goals for left Plan of Care Dates Plan of Care Start Date 11/09/21 Plan of Care End Date 01/10/22 Electronically Signed by: Ibeth Miguel, PT 11/09/21 0944 If you are in agreement with this Plan of Care, please return a signed and dated copy. I have reviewed this Plan of Care and certify that the skilled therapy services above are required to meet the patient?s needs. Physician Signature Date Printed Name and Credentials Clinical Instructor Signature Printed Name and Credentials
--- NOTE | 2021-11-23 10:20 | PT.OTN ---
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 Has not had any hip pain before. Up stairs is the worst. Slopes are ok. Took ibuprofen one day and does not like to take medication. Pain is not disturbing sleep very much. Worse with activity. She likes to walk up [place] 2-3 times per week. History of left femur fracture while skiing when she was 40 yo. Pt has osteoporosis. Went off fosomax in April and is awaiting repeat DEXA. She has had a Torres's cyst left knee 30 years but it is recently more swollen. She has a leftward lumbar scoliotic curve. Her left leg is shorter and she uses a heel lift in her shoes to compensate. Prior Treatments and Tests No imaging of this hip. Pt had PT previously after wrist fracture 3 years ago which resulted from a fall. Treatment Goals Patient/Caregiver Goals Leaving August 30 for a trip - driving to [place] and flying to [place]. She hopes to be in good shape for her trip. Wants to keep walking, play golf, keep hiking without pain . Personal Factors Other Personal Factors That May Effect High level of activity Therapy/Recovery bolsters prognosis. PT-OP-C Subjective Start: 08/17/21 16:18 Freq: Status: Active Protocol: Document 11/23/21 09:01 AW (Rec: 11/23/21 10:20 AW [id number]) OP-PT Subjective Patient Comments Patient Comments Both hips feeling better. Still has some pain in the morning but things get better once I get moving. Patient Reported Progress Improving PT-OP-E Functional Tests Start: 08/17/21 16:18 Freq: Status: Active Protocol: Document 09/21/21 09:35 MA (Rec: 09/21/21 10:19 MA [id number]) Functional Tests 6 Minute Walk Test Distance 1341 ft PT-OP-F Manual Assessment Start: 08/17/21 16:18 Freq: Status: Active Protocol: Document 08/18/21 09:45 AW (Rec: 08/21/21 17:22 AW [id number]) Manual Assessments Soft Tissue Assessment Soft Tissue Mobility Assessment TTP at deep external rotators of the right hip PT-OP-G Mobility & Gait Start: 08/17/21 16:18 Freq: Status: Active Protocol: Document 08/18/21 09:45 AW (Rec: 08/22/21 08:42 AW [id number]) OP Gait Assessment Comments Gait Comments Short step length bilaterally. Gait quality is choppy but without evidence of imbalance. Stair Climbing Evaluation Comments Stair Climbing Comments Step over step with definite use of hand rail. Pt reports no pain today but states pain is typically most irritable with stairs. PT-OP-J Posture/Palpation/Skin Start: 08/17/21 16:18 Freq: Status: Active Protocol: Document 08/18/21 09:45 AW (Rec: 08/22/21 08:42 AW [id number]) Posture Evaluation Comments Posture Comments All pelvic bony landmarks higher on the right due to lumbar levoscoliosis and LLE shorter than RLE. Palpation Assessment Location right hip Palpation Findings Tenderness Palpation Details TTP at deep external rotators. 3/10 pain with deep palpation . PT-OP-K Range of Motion Start: 08/17/21 16:18 Freq: Status: Active Protocol: Document 08/18/21 09:45 AW (Rec: 08/22/21 08:42 AW [id number]) Hip Goniometric Range of Motion Hip right Hip ROM WFL Yes Comments End range PROM ER and flexion are painful. Hip ROM Limitations Hip ROM Limitations Soft Tissue Tightness,Pain Comments No pain with any end-range PROM L hip. PT-OP-M Strength Start: 08/17/21 16:18 Freq: Status: Active Protocol: Document 08/18/21 09:45 AW (Rec: 08/22/21 08:42 AW [id number]) Hip Strength Hip Manual Muscle Testing bilat Flexion (L2) 4+ Good+ Extension (S1) 4 Good Abduction 4 Good External Rotation 4+ Good+ Internal Rotation 4+ Good+ Comments R hip IR MMT reproduces pain in posterior hip. Knee Strength Knee Manual Muscle Testing bilat Flexion (S2) 4+ Good+ Extension (L3) 5 Normal PT-OP-Q Treatments Start: 08/17/21 16:18 Freq: Status: Active Protocol: Document 11/23/21 09:01 AW (Rec: 11/23/21 10:20 AW [id number]) Cardio Equipment Recumbent Elliptical ([employer]) Duration (Minutes) 5 Resistance 6 Seat Position 1 Other no hip irritation either side Therapeutic Exercises Supine Exercises bridge Supine Exercise Name bridge Equipment Used TB 3 around knees Reps/Minutes 10x5 Comments cued ppt, slow controlled segmental movement; HEP piriformis stretch Supine Exercise Name piriformis stretch Side bilateral Reps/Minutes 30 SH x 4 Comments in seated and supine; HEP review Standing Exercises SLS Standing Exercise Name SLS Side bilateral Reps/Minutes 30 sec BLE; less lateral lean today Comments cued glute drive; HEP step up Standing Exercise Name step up - fwd, lateral Side bilateral Resistance unilat rail Equipment Used 8 step Reps/Minutes 2x12 each direction Comments no irritation lateral; minor irritation LLE going fwd HEP review Sit<>stand Side bilateral Reps/Minutes 4x10 Comments 1st set std ht chair; 2nd set w/ band at knees; 3-4 sets from 16 Self-Care/Home Management Treatment Education Patient Education Home Exercise Program Other Education Consolidated HEP and ensured pt understanding PT-OP-T Assessment and Plan Start: 08/17/21 16:18 Freq: Status: Active Protocol: Document 11/23/21 09:01 AW (Rec: 11/23/21 10:20 AW [id number]) Physical Therapy Assessment Goals Three Impairment balance [place] Goal (LTG) Pt will improve FGA score from 24/30 to 27/30 or greater as a measure of improved dynamic balance. 11/09/21 - Pt scores 27/30 LTG Duration 11/09/21 GOAL MET Two Impairment pain with stair climbing [place] Goal (LTG) Pt will ascend/descend 28 steps two times with use of hand rail as needed without increase in baseline pain. LTG Duration 11/09/21 GOAL MET One Impairment lacks HEP Short Term Goal (STG) Pt will be instructed in HEP for hip ROM, hip strength, and balance to support therapy services provided in clinic. STG Duration 5 weeks - 08/23/21 [facility] Goal (LTG) Pt will be independent with HEP to promote return to regular activity without pain. LTG Duration 11/09/21 GOAL MET Assessment Summary Assessment Both hips are doing well. Pt continues to have occasional pain in her left hip but it is manageable with the exercises and tools she already has. Reviewed and consolidated HEP today in preparation for discharge. Physical Therapy Plan Frequency and Duration Frequency of Treatment 1-2x/week Duration of Treatment 2 months Plan of Care Start Date 11/09/21 Plan of Care End Date 01/10/22 Therapeutic Interventions Therapeutic Interventions Balance Training,Gait Training ,Home Exercise Program,Manual Therapy,Neuromuscular Re- education,Self-Care/Home Management,Soft Tissue Mobilization,Therapeutic Activities,Therapeutic Exercises Modalities Cold Pack/Ice Massage,Electric Stimulation,Hot Packs Discharge Physical Therapy Discharge Reasons Goals Met Discharge Comments Pt has met all goals pertaining to right and left hip. She is happy with her progress and feels ready to discharge, confident with her HEP.
== END 2021-11-24 09:25 | disposition home or self-care (01) ==
LOC: PHYS 09:45
PROVIDERS: Family Provider Internal Medicine; PCP Internal Medicine; Referring Provider Internal Medicine; Visit Provider Internal Medicine
DX: M25.551 Pain in right hip (principal); R26.2 Difficulty in walking, not elsewhere classified
CPT/HCPCS: 97110; 97116; 97140; 97161; 97535

== ENCOUNTER → 2022-01-03 11:15 | Outpatient (CLI) | payer MEDICARE, OTHER, SELFPAY ==
--- NOTE | 2022-01-03 | DI.MG.S_ITS ---
BILATERAL DIGITAL SCREENING MAMMOGRAM 3D/2D WITH CAD: 01/03/2022 CLINICAL: Routine screening. Comparison is made to exams dated: 12/30/2020 mammogram, 12/22/2019 mammogram, and 12/19/2018 mammogram - [facility]. There are scattered areas of fibroglandular density in both breasts (category b / 25%-50% glandular tissue). Current study was also evaluated with a Computer Aided Detection (CAD) system. There is a biopsy clip in the left breast. No significant masses, calcifications, or other findings are seen in either breast. There has been no significant interval change. IMPRESSION: NEGATIVE There is no mammographic evidence of malignancy. A 1 year screening mammogram is recommended. Based on the Tyrer Cuzick model (a risk assessment model) the patient's lifetime risk is 2.6% and her 10 year risk is 0.0%. According to the ACR, ACS, and NCCN guidelines, an annual breast MRI exam along with mammogram is recommended if the patient's lifetime risk is 20% or greater. This exam was interpreted at Station ID: [id number]. NOTE: For mammograms, a report in lay terms will be sent to the patient. Approximately 15% of breast malignancies will not be visualized mammographically. In the management of a palpable breast mass, a negative mammogram must not discourage biopsy of a clinically suspicious lesion. Electronically Signed By: Bud araiza/tacho:01/03/2022 14:04:04 letter sent: Normal Exam ACR BI-RADS Category 1: Negative [id number]
== END ==
PROVIDERS: Family Provider Internal Medicine; PCP Internal Medicine; Referring Provider Internal Medicine; Visit Provider Internal Medicine
DX: Z12.31 Encounter for screening mammogram for malignant neoplasm of breast (principal)
CPT/HCPCS: 77063; 77067

== ENCOUNTER → 2022-05-14 09:26 | Outpatient (CLI) | payer MEDICARE, OTHER, SELFPAY | PROVIDERS: Family Provider Internal Medicine; PCP Internal Medicine; Visit Provider Physician Assistant Medical | DX: R30.0 Dysuria (principal) | CPT/HCPCS: 87077; 87086; 87186 ==

== ENCOUNTER → 2022-05-24 07:37 | Outpatient (CLI) | payer MEDICARE, OTHER, SELFPAY ==
[2022-05-24 08:35] LABS: Alanine Aminotransferase 17 IU/L (<35); Albumin 3.7 g/dL (3.5-5.0); Albumin Globulin Ratio 1.3 (1.0-2.8); Alkaline Phosphatase 47 U/L (38-126); Aspartate Aminotransferase 23 IU/L (14-36); BUN Creatinine Ratio 30.6 (6-22); Bilirubin Total 0.6 mg/dL (0.2-1.3); Blood Urea Nitrogen 19 mg/dL (7-17); Calcium 9.1 mg/dL (8.4-10.2); Carbon Dioxide 32 mmol/L (22-32); Chloride 101 mmol/L (98-107); Cholesterol 180 mg/dL (140-199); Estimated Glomerular Filt Rate > 60 mL/min (>60); Globulin 2.9 g/dL (1.7-4.1); Glucose 97 mg/dL (80-110); HDL Cholesterol 78 mg/dL (40-60); HEMOLYSIS < 15 (0-50); LDL Cholesterol Calculated 90 mg/dL (<100); Potassium 3.9 mmol/L (3.4-5.1); Sodium 138 mmol/L (137-145); Total Protein 6.6 g/dL (6.3-8.2); Triglycerides 58 mg/dL (35-150)
[2022-05-24 08:47] LABS: Free T4, Direct Thyroxine 1.52 ng/dL (0.78-2.19)
== END ==
PROVIDERS: Family Provider Internal Medicine; PCP Internal Medicine; Referring Provider Internal Medicine; Visit Provider Internal Medicine
DX: E03.9 Hypothyroidism, unspecified (principal); E78.2 Mixed hyperlipidemia; I10 Essential (primary) hypertension
CPT/HCPCS: 36415; 80053; 80061; 84439; 84443

== ENCOUNTER → 2022-05-31 11:06 | Outpatient (CLI) | payer MEDICARE, OTHER, SELFPAY ==
--- NOTE | 2022-05-31 11:07 | DI.RAD.S_ITS ---
PROCEDURE: XR DEXA AXIAL SKELETON INDICATIONS: osteopenia COMPARISON: [facility], CR, DEXA AXIAL SKELETON, 04/28/2016, 11:18. FINDINGS: This blank DEXA report has been sent in error by the PACS system. The correct and complete report will be forthcoming in 1-2 days. Thank you for your patience and understanding. Dictated by: Douglas Taylor M.D. on 05/31/2022 at 12:33 Approved by: Douglas Taylor M.D. on 05/31/2022 at 12:34
== END ==
PROVIDERS: Family Provider Internal Medicine; PCP Internal Medicine; Referring Provider Internal Medicine; Visit Provider Internal Medicine
DX: Z78.0 Asymptomatic menopausal state (principal); M85.88 Other specified disorders of bone density and structure, other site; Z92.23 Personal history of estrogen therapy
CPT/HCPCS: 77080

== ENCOUNTER → 2023-01-11 14:59 | Outpatient (CLI) | payer MEDICARE, OTHER, SELFPAY ==
--- NOTE | 2023-01-11 | DI.MG.S_ITS ---
BILATERAL DIGITAL SCREENING MAMMOGRAM 3D/2D WITH CAD: 01/11/2023 CLINICAL: Routine screening. Comparison is made to exams dated: 01/03/2022 mammogram, 12/30/2020 mammogram, and 12/22/2019 mammogram - [facility]. There are scattered areas of fibroglandular density in both breasts (category b / 25%-50% glandular tissue). Current study was also evaluated with a Computer Aided Detection (CAD) system. There is a biopsy clip in the left breast. No significant masses, calcifications, or other findings are seen in either breast. There has been no significant interval change. IMPRESSION: NEGATIVE There is no mammographic evidence of malignancy. A 1 year screening mammogram is recommended. Based on the Tyrer Cuzick model (a risk assessment model) the patient's lifetime risk is 2.2% and her 10 year risk is 0.0%. According to the ACR, ACS, and NCCN guidelines, an annual breast MRI exam along with mammogram is recommended if the patient's lifetime risk is 20% or greater. This exam was interpreted at Station ID: [id number]. NOTE: For mammograms, a report in lay terms will be sent to the patient. Approximately 15% of breast malignancies will not be visualized mammographically. In the management of a palpable breast mass, a negative mammogram must not discourage biopsy of a clinically suspicious lesion. Electronically Signed By: Tim crawford/tacho:01/12/2023 14:14:18 letter sent: Normal Exam ACR BI-RADS Category 1: Negative [id number]
== END ==
PROVIDERS: Family Provider Internal Medicine; PCP Internal Medicine; Referring Provider Internal Medicine; Visit Provider Internal Medicine
DX: Z12.31 Encounter for screening mammogram for malignant neoplasm of breast (principal)
CPT/HCPCS: 77063; 77067

== ENCOUNTER → 2023-06-13 07:27 | Outpatient (CLI) | payer MEDICARE, OTHER, SELFPAY ==
[2023-06-13 09:27] LABS: Alanine Aminotransferase 19 IU/L (<35); Albumin 3.9 g/dL (3.5-5.0); Albumin Globulin Ratio 1.3 (1.0-2.8); Alkaline Phosphatase 45 U/L (38-126); Aspartate Aminotransferase 31 IU/L (14-36); BUN Creatinine Ratio 32.8 (6-22); Bilirubin Total 0.8 mg/dL (0.2-1.3); Blood Urea Nitrogen 19 mg/dL (7-17); Calcium 9.3 mg/dL (8.4-10.2); Carbon Dioxide 33 mmol/L (22-32); Chloride 102 mmol/L (98-107); Cholesterol 181 mg/dL (140-199); Estimated Glomerular Filt Rate > 60 mL/min (>60); Glucose 95 mg/dL (80-110); HDL Cholesterol 77 mg/dL (40-60); HEMOLYSIS < 15 (0-50); LDL Cholesterol Calculated 91 mg/dL (<100); Potassium 3.5 mmol/L (3.4-5.1); Sodium 139 mmol/L (137-145); Total Protein 6.9 g/dL (6.3-8.2); Triglycerides 64 mg/dL (35-150)
[2023-06-13 09:42] LABS: Free T4, Direct Thyroxine 1.62 ng/dL (0.78-2.19)
[2023-06-13 09:55] LABS: Thyroid Stimulating Hormone 0.803 uIU/mL (0.47-4.68)
== END ==
LOC: LAB 07:28
PROVIDERS: PCP Internal Medicine; Referring Provider Internal Medicine; Visit Provider Internal Medicine
DX: I10 Essential (primary) hypertension (principal); E03.9 Hypothyroidism, unspecified; E78.2 Mixed hyperlipidemia
CPT/HCPCS: 36415; 80053; 80061; 84439; 84443

== ENCOUNTER → 2023-09-06 10:08 | Outpatient (CLI) | payer MEDICARE, OTHER, SELFPAY ==
[2023-09-06 11:09] LABS: Add Manual Diff / Slide Review NO; Basophils Absolute Auto 0 /uL (0-100); Basophils Percent Auto 0.9 % (0-2); Eosinophils Absolute Auto 100 /uL (0-450); Eosinophils Percent Auto 1.1 % (2-4); Hematocrit 35.8 % (36-46); Hemoglobin 12.1 g/dL (12.0-16.0); Lymphocytes Absolute Auto 1300 /uL (1100-4500); Mean Corpuscular HGB Conc 33.7 % (30-36); Mean Corpuscular Hemoglobin 32.3 PG (26-34); Mean Corpuscular Volume 95.9 fL (80-100); Monocytes Absolute Auto 600 /uL (0-900); Monocytes Percent Auto 10.6 % (3-14); Neutrophils Absolute Auto 3500 /uL (1500-7000); Neutrophils Percent Auto 63.4 % (50-75); Platelet Count 386 X10^3/uL (150-400); Red Blood Cell Count 3.74 X10^6/uL (4.0-5.2); Red Cell Distribution Width 14.5 % (11.6-14.8); White Blood Cell Count 5.5 X10^3/uL (4.5-11.0)
[2023-09-06 11:33] LABS: BUN Creatinine Ratio 32.1 (6-22); Blood Urea Nitrogen 18 mg/dL (7-17); Calcium 9.8 mg/dL (8.4-10.2); Carbon Dioxide 32 mmol/L (22-32); Chloride 101 mmol/L (98-107); Estimated Glomerular Filt Rate > 60 mL/min (>60); Glucose 112 mg/dL (80-110); HEMOLYSIS < 15 (0-50); Potassium 3.7 mmol/L (3.4-5.1); Sodium 136 mmol/L (137-145)
== END ==
LOC: LAB 10:09
PROVIDERS: PCP Internal Medicine; Referring Provider Internal Medicine; Visit Provider Internal Medicine
DX: I10 Essential (primary) hypertension (principal); K92.2 Gastrointestinal hemorrhage, unspecified
CPT/HCPCS: 36415; 80048; 83735; 85025

== ENCOUNTER 2023-11-19 09:17 | Observation (INO) | payer MEDICARE, OTHER, SELFPAY ==
[2023-11-19] VITALS (18 sets, daily range): BP systolic 142–205; BP diastolic 68–98; PULSE 61–91; RESP 18–41; TEMP 36.6–37.4; O2SAT 95–99
[2023-11-19 09:49] LABS: Add Manual Diff / Slide Review NO; Basophils Absolute Auto 0 /uL (0-100); Basophils Percent Auto 0.3 % (0-2); Eosinophils Absolute Auto 0 /uL (0-450); Eosinophils Percent Auto 0.3 % (2-4); Hematocrit 40.4 % (36-46); Hemoglobin 13.6 g/dL (12.0-16.0); Lymphocytes Absolute Auto 1200 /uL (1100-4500); Lymphocytes Percent Auto 13.9 % (25-40); Mean Corpuscular HGB Conc 33.6 % (30-36); Mean Corpuscular Hemoglobin 31.5 PG (26-34); Mean Corpuscular Volume 93.8 fL (80-100); Monocytes Absolute Auto 700 /uL (0-900); Monocytes Percent Auto 7.9 % (3-14); Neutrophils Absolute Auto 6900 /uL (1500-7000); Neutrophils Percent Auto 77.6 % (50-75); Platelet Count 267 X10^3/uL (150-400); Red Blood Cell Count 4.31 X10^6/uL (4.0-5.2); Red Cell Distribution Width 13.8 % (11.6-14.8); White Blood Cell Count 8.9 X10^3/uL (4.5-11.0)
--- NOTE | 2023-11-19 09:55 | EKG_ITS ---
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
[2023-11-19 09:57] LABS: Prothrombin Time 11.5 SECONDS (9.4-12.5)
[2023-11-19 10:00] LABS: Alanine Aminotransferase 24 IU/L (<35); Albumin 4.2 g/dL (3.5-5.0); Albumin Globulin Ratio 1.5 (1.0-2.8); Alkaline Phosphatase 49 U/L (38-126); Aspartate Aminotransferase 30 IU/L (14-36); BUN Creatinine Ratio 28.6 (6-22); Bilirubin Total 0.5 mg/dL (0.2-1.3); Blood Urea Nitrogen 18 mg/dL (7-17); Calcium 9.2 mg/dL (8.4-10.2); Carbon Dioxide 27 mmol/L (22-32); Chloride 105 mmol/L (98-107); Estimated Glomerular Filt Rate > 60 mL/min (>60); Globulin 2.8 g/dL (1.7-4.1); Glucose 173 mg/dL (80-110); HEMOLYSIS < 15 (0-50); PTT Partial Thromboplastin Tim 33 SECONDS (25.1-36.5); Potassium 3.9 mmol/L (3.4-5.1); Sodium 138 mmol/L (137-145)
[2023-11-19] MEDS: PANTOPRAZOLE 40 MG VIAL 80 MG IV (10:29)
--- NOTE | 2023-11-19 10:33 | ED_ITS ---
HPI - Abdominal Pain General Chief Complaint: Abdominal Pain Stated Complaint: rectal bleeding Time Seen by Provider: 11/19/23 10:31 Source: patient Mode of arrival: Ambulatory History of Present Illness HPI narrative: Patient is an 78-year-old female history of hypertension, diverticulosis rectal bleeding presenting today with rectal bleeding. She reports that today she had a bloody bowel movement. This is happened to her before she actually had a colonoscopy [place] [facility] 08/26/2023 she has not on antiplatelet or anticoagulation medication she has multiple small polyps, she was supposed to follow-up with GI she said she did. She is actually scheduled for colonoscopy in January. She reports mild abdominal cramping but no real abdominal pain no nausea or vomiting. She felt a little dizzy but not dizzy now. No chest pain or palpitations although she is having frequent PVCs on the monitor. Related Data Home Medications Medication Instructions Recorded Confirmed calcium [id number]-asbestos microscopist-caprice 1 tab PO DAILY 09/06/23 11/19/23 Previous Rx's Medication Instructions Recorded hydrochlorothiazide 25 mg tablet 25 mg PO DAILY #90 tabs 05/29/23 levothyroxine 50 mcg tablet 50 mcg PO DAILY #90 tabs 05/29/23 rosuvastatin 10 mg tablet 10 mg PO DAILY #90 tabs 06/11/23 Allergies Allergy/AdvReac Type Severity Reaction Status Date / Time prochlorperazine Allergy Mild DYSTONIA Verified 11/19/23 09:27 ciprofloxacin AdvReac Unknown JOINT PAIN Verified 11/19/23 09:27 Patient History Medical History Osteoarthritis of right hip Vision disorder Osteopenia (~1995) Rosacea (~1986) Acne (~1956) Hearing loss (~2012) Thyroid nodule (~1996) History of pre-eclampsia 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) Acquired hypothyroidism (04/13/15) Diverticulosis of large intestine Essential hypertension History of adenomatous polyp of colon (04/05/11) Mitral valve prolapse (04/05/11) Mixed hyperlipidemia (04/05/11) Surgical History Anesthesia Fractures (~1981) History of thyroidectomy (~2002) Status post delivery (~1970) Status post delivery (~1969) Family History Father Rheumatoid arthritis Mother No problems noted. Social History household members: none Smoking Status: Never smoker Smoking Status: Never smoker alcohol intake frequency: a few times a week Substance Use Type: does not use Exam Initial Vital Signs Initial Vital Signs: Vital Signs Temperature 97.8 F 11/19/23 09:21 Pulse Rate 86 11/19/23 09:21 Respiratory Rate 18 11/19/23 09:21 Blood Pressure 177/77 H 11/19/23 09:21 Pulse Oximetry 98 11/19/23 09:21 Oxygen Delivery Method Room Air 11/19/23 09:21 GENERAL: Alert pleasant 78-year-old female and in no acute distress. HEENT: Head atraumatic,EOMI, pupils reactive, face symmetric, moist mucous membranes CARDIOVASCULAR: Regular rate and rhythm without murmurs, rubs or gallops. RESPIRATORY: Breath sounds equal bilaterally, no wheezes rales or rhonchi. ABDOMEN: Soft, nontender. Normoactive bowel sounds all 4 quadrants. No guarding or rebound. RECTAL: Grossly positive with dark melena : No CVA tenderness EXTREMITIES: Normal range of motion, no clubbing or edema. Neurovascularly intact NEUROLOGICAL: Alert and oriented x4.Normal gait and speech. SKIN: Warm, dry, no laceration, no petechiae, no rashes or lesions. Course Orders Ordered: ED Orders 11/19/23 10:44 CT angio Abd/Pel GI Bleed Stat 11/19/23 11:05 Urinalysis and Microscopic Stat 11/19/23 11:34 Hemoglobin and Hematocrit Stat 11/19/23 14:54 Complete Blood Count AUTO DIFF Q4H 11/19/23 17:32 Complete Blood Count AUTO DIFF Q4H 11/19/23 22:00 Complete Blood Count AUTO DIFF Q4H 11/20/23 06:00 Basic Metabolic Panel DAILY Acetaminophen (Acetaminophen 325 Mg Tablet) 650 mg PO Q6H PRN PRN Reason: Fever/Mild Pain (1-3) Calcium Carbonate (Calcium Carbonate 500 Mg Tab) 1,000 mg PO Q4HR PRN PRN Reason: Dyspepsia Hydralazine HCl (Hydralazine 20 Mg/Ml Vial) 10 mg IV Q6HR PRN PRN Reason: Hypertension Sodium Chloride (Normal Saline 0.9%) 1,000 mls @ 100 mls/hr IV CONT TIFFANI Last Admin: 11/19/23 17:49 Dose: 100 mls/hr Documented By: BRENDAN Levothyroxine Sodium (Levothyroxine 50 Mcg Tablet) 50 mcg PO DAILY@0600 [facility] Naloxone HCl (Naloxone 0.4 Mg/Ml Vial) 0.2 mg IV Q2MIN PRN PRN Reason: Opiate Reversal Naloxone HCl (Naloxone 0.4 Mg/Ml Vial) 0.2 mg IV Q2MIN PRN PRN Reason: Opiate Reversal Ondansetron HCl (Ondansetron 4 Mg/2 Ml Inj) 4 mg IV NOW PRN PRN Reason: Nausea And Vomiting Ondansetron HCl (Ondansetron 4 Mg Odt) 4 mg SL NOW PRN PRN Reason: Nausea And Vomiting Oxycodone HCl (Oxycodone Ir 5 Mg Tablet) 5 mg PO Q3H PRN PRN Reason: Pain, Moderate (4-6) Discontinued Medications Pantoprazole Sodium (Pantoprazole 40 Mg Vial) 80 mg IV NOW ONE Stop: 11/19/23 09:31 Last Admin: 11/19/23 10:29 Dose: 80 mg Documented By: CALI Vital Signs Vital signs: Vital Signs - 8 hr 11/19/23 12:00 11/19/23 12:00 11/19/23 12:30 Pulse Rate 76 78 Respiratory Rate 41 H 34 H Blood Pressure 157/69 H Pulse Oximetry 97 96 Oxygen Delivery Method 11/19/23 12:30 11/19/23 13:00 11/19/23 13:00 Pulse Rate 75 Respiratory Rate 20 Blood Pressure 149/68 H 169/72 H Pulse Oximetry 96 Oxygen Delivery Method 11/19/23 13:30 11/19/23 13:30 Pulse Rate 68 Respiratory Rate 24 Blood Pressure 142/73 H Pulse Oximetry 96 Oxygen Delivery Method Room Air MDM - Abdominal Pain Lab Data 11/19/23 17:32 11/19/23 09:38 Labs: Lab Results 11/19/23 11/19/23 11/19/23 Range/Units 09:38 11:05 11:34 WBC 8.9 (4.5-11.0) X10^3/uL RBC 4.31 (4.0-5.2) X10^6/uL Hgb 13.6 13.0 (12.0-16.0) g/dL Hct 40.4 38.3 (36-46) % MCV 93.8 (80-100) fL MCH 31.5 (26-34) PG MCHC 33.6 (30-36) % RDW 13.8 (11.6-14.8) % Plt Count 267 (150-400) X10^3/uL Neut % (Auto) 77.6 H (50-75) % Lymph % (Auto) 13.9 L (25-40) % Winn % (Auto) 7.9 (3-14) % Eos % (Auto) 0.3 L (2-4) % Baso % (Auto) 0.3 (0-2) % Neut # (Auto) 6900 (2703-9676) /uL Lymph # (Auto) 1200 (2631-0482) /uL Winn # (Auto) 700 (0-900) /uL Eos # (Auto) 0 (0-450) /uL Baso # (Auto) 0 (0-100) /uL PT 11.5 (9.4-12.5) SECONDS INR 1.0 (0.9-1.3) APTT 33 (25.1-36.5) SECONDS Sodium 138 (137-145) mmol/L Potassium 3.9 (3.4-5.1) mmol/L Chloride 105 (98-107) mmol/L Carbon Dioxide 27 (22-32) mmol/L BUN 18 H (7-17) mg/dL Creatinine 0.63 (0.52-1.04) mg/dL Estimated GFR > 60 (>60) mL/min BUN/Creatinine Ratio 28.6 H (6-22) Glucose 173 H (80-110) mg/dL Calcium 9.2 (8.4-10.2) mg/dL Total Bilirubin 0.5 (0.2-1.3) mg/dL AST 30 (14-36) IU/L ALT 24 (<35) IU/L Alkaline Phosphatase 49 (38-126) U/L Total Protein 7.0 (6.3-8.2) g/dL Albumin 4.2 (3.5-5.0) g/dL Globulin 2.8 (1.7-4.1) g/dL Albumin/Globulin Ratio 1.5 (1.0-2.8) Urine Color Yellow Urine Appearance Clear Urine pH 5.5 (4.5-8.0) Ur Specific [place] <=1.005 (1.000-1.035) Urine Protein Negative (Negative) Urine Glucose (UA) Negative (Negative) g/dL Urine Ketones Negative (NEGATIVE) Urine Occult Blood 2+ H (Negative) Urine Nitrate Negative (Negative) Urine Bilirubin Negative (NEGATIVE) Urine Urobilinogen 0.2 (0.2) E.U./dL Ur Leukocyte Esterase Negative (NEGATIVE) Urine RBC 1-5/hpf (0-5/HPF) Urine WBC None seen (0-5/HPF) Ur Squamous Epith Cells 0-1 /hpf (0-5/HPF) Urine Bacteria None seen (None) Ur Culture Indicated? Cult not indicated Vol Urine Centrifuged 10ml (spun) Blood Type A Positive Antibody Screen Negative Point of care testing: Urine Dip Bedside Urine Glucose Negative Bedside Urine Bilirubin - Negative Bedside Urine Ketone - Negative Urine Specific [place] 1.010 Bedside Urine Occult Blood +++ Bedside Urine pH 6.0 Bedside Urine Protein - Negative Bedside Urine Urobilinogen - Negative Bedside Urine Nitrite - Negative Bedside Urine Leukocytes - Negative Esterase Imaging Data CT scan - abdomen/pelvis: Radiologist's Impression: PROCEDURE: CT ANGIO ABD/PEL GI BLEED INDICATIONS: Abdominal Pain TECHNIQUE: After the administration of intravenous contrast, 2.5 mm thick sections acquired from the diaphragm to the symphysis. 10 mm maximum-intensity projection (MIP) reformats were then acquired. For radiation dose reduction, the following was used: automated exposure control. COMPARISON: None. FINDINGS: Image Quality: Diagnostic. Abdominal aorta: No aortic aneurysm or evidence of acute aortic syndrome. Mesenteric arteries: Patent without hemodynamically significant stenosis. Renal arteries: The origins are patent. 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 OTHER: Lower Chest: Mild cardiomegaly. Liver: No solid mass. Multiple hepatic cysts. Gallbladder: Surgically absent Biliary ducts: Within normal limits based on patient age and remote cholecystectomy. Pancreas: No ductal dilation. Spleen: Size is within normal limits. Adrenal Glands: No adrenal nodules. Kidneys and Ureters: No hydronephrosis. No solid mass. No complex renal cystic lesion which requires follow up. Stomach and Bowel: Extensive sigmoid diverticulosis and diffuse colonic diverticulosis. There is acute bleeding from a diverticulum present at the level of the sigmoid colon. This is well seen on coronal image 32 of series 12 as well as axial image 155 of series 5. Peritoneum: No abnormal intraperitoneal fluid. No free air. Ventral Wall: No hernia. Abdominal Nodes: No retroperitoneal or mesenteric adenopathy by size criteria. Vessels: Aorta and inferior vena cava are normal in size. PELVIS: Pelvic Organs: Unremarkable. Bladder: Unremarkable. Pelvic Nodes: No enlarged lymph nodes. Miscellaneous: No inguinal hernias are seen. Bones: No aggressive osseous abnormality. Lumbar degenerative change. Canal stenosis at L4-L5. IMPRESSION: 1. Extensive diverticulosis. 2. Acute diverticular hemorrhage from the sigmoid. 3. Mild cardiomegaly. 4. Lumbar degenerative change with a degree of canal stenosis at L4-L5. 5. Remote cholecystectomy. Comment: Findings were discussed with Dr. Bruno on 11/20/2021 at 1209 hours. Dictated by: Aurelio Cuevas M.D. on 11/19/2023 at 12:08 Approved by: Aurelio Cuevas M.D. on 11/19/2023 at 12:15 ECG Data Attestation: I personally reviewed and interpreted this ECG as follows: Interpretation: Normal sinus rhythm rate 70 WV interval 208 QRS 102 QTC 423 T-wave inversion noted in lead [address] elevation or depression MDM Narrative Medical decision making narrative: Patient rene 78-year-old female who has known colon polyps, presenting today with rectal bleeding. She is grossly positive with hematochezia on exam. Abdomen is soft and nontender. She is hemodynamically stable not on any anticoagulation or antiplatelet medication. Blood work has been reviewed she has a stable hemoglobin without drop, no leukocytosis electrolytes are stable BUN [address] imaging reviewed acute sigmoid diverticular bleeding I did receive phone call from Radiology Patient has not had any further significant rectal bleeding what she is obviously positive. Dr. King on-call surgery updated on CT results and patient's signs and symptoms. Recommend admitting to the hospitalist for further monitoring Dr. Veliz updated on symptoms test results surgery recommendations of monitoring and is in the ED to see and evaluate patient Discharge Plan Departure Patient Disposition: Admitted as Observation Clinical Impression: Diverticular hemorrhage Admit Date/Time: 11/19/23 13:57 Admit Provider: Anahi Rai
--- NOTE | 2023-11-19 10:44 | DI.CT.S_ITS ---
PROCEDURE: CT ANGIO ABD/PEL GI BLEED INDICATIONS: Abdominal Pain TECHNIQUE: After the administration of intravenous contrast, 2.5 mm thick sections acquired from the diaphragm to the symphysis. 10 mm maximum-intensity projection (MIP) reformats were then acquired. For radiation dose reduction, the following was used: automated exposure control. COMPARISON: None. FINDINGS: Image Quality: Diagnostic. Abdominal aorta: No aortic aneurysm or evidence of acute aortic syndrome. Mesenteric arteries: Patent without hemodynamically significant stenosis. Renal arteries: The origins are patent. 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 OTHER: Lower Chest: Mild cardiomegaly. Liver: No solid mass. Multiple hepatic cysts. Gallbladder: Surgically absent Biliary ducts: Within normal limits based on patient age and remote cholecystectomy. Pancreas: No ductal dilation. Spleen: Size is within normal limits. Adrenal Glands: No adrenal nodules. Kidneys and Ureters: No hydronephrosis. No solid mass. No complex renal cystic lesion which requires follow up. Stomach and Bowel: Extensive sigmoid diverticulosis and diffuse colonic diverticulosis. There is acute bleeding from a diverticulum present at the level of the sigmoid colon. This is well seen on coronal image 32 of series 12 as well as axial image 155 of series 5. Peritoneum: No abnormal intraperitoneal fluid. No free air. Ventral Wall: No hernia. Abdominal Nodes: No retroperitoneal or mesenteric adenopathy by size criteria. Vessels: Aorta and inferior vena cava are normal in size. PELVIS: Pelvic Organs: Unremarkable. Bladder: Unremarkable. Pelvic Nodes: No enlarged lymph nodes. Miscellaneous: No inguinal hernias are seen. Bones: No aggressive osseous abnormality. Lumbar degenerative change. Canal stenosis at L4-L5. IMPRESSION: 1. Extensive diverticulosis. 2. Acute diverticular hemorrhage from the sigmoid. 3. Mild cardiomegaly. 4. Lumbar degenerative change with a degree of canal stenosis at L4-L5. 5. Remote cholecystectomy. Comment: Findings were discussed with Dr. Bruno on 11/20/2021 at 1209 hours. Dictated by: Aurelio Cuevas M.D. on 11/19/2023 at 12:08 Approved by: Aurelio Cuevas M.D. on 11/19/2023 at 12:15
[2023-11-19 11:29] LABS: Appearance Urine UA CLEAR; Bilirubin Urine UA NEGATIVE (NEGATIVE); Color Urine UA YELLOW; Glucose Urine UA NEGATIVE (Negative); Ketones Urine UA NEGATIVE (NEGATIVE); Leukocyte Esterase Urine UA NEGATIVE (NEGATIVE); Nitrite Urine UA NEGATIVE (Negative); Occult Blood Urine UA 2+ (Negative); Protein Urine UA NEGATIVE (Negative); Specific Gravity Urine UA <=1.005 (1.000-1.035); Urobilinogen Urine UA 0.2 E.U./dL (0.2)
[2023-11-19 11:30] LABS: Urine Volume 10mL (spun); pH Urine UA 5.5 (4.5-8.0)
[2023-11-19 11:32] LABS: Bacteria Urine None Seen; Culture Indicated Urine Cult Not Indicated; RBC Urine 1-5/HPF (0-5/HPF); Squamous Epithelial Cell Urine 0-1 /HPF (0-5/HPF); WBC Urine None Seen (0-5/HPF)
[2023-11-19 11:56] LABS: Hematocrit 38.3 % (36-46)
[2023-11-19 15:03] LABS: Add Manual Diff / Slide Review NO; Basophils Absolute Auto 0 /uL (0-100); Basophils Percent Auto 0.3 % (0-2); Eosinophils Absolute Auto 0 /uL (0-450); Eosinophils Percent Auto 0.5 % (2-4); Hematocrit 38.3 % (36-46); Hemoglobin 12.8 g/dL (12.0-16.0); Lymphocytes Absolute Auto 1100 /uL (1100-4500); Lymphocytes Percent Auto 13.3 % (25-40); Mean Corpuscular HGB Conc 33.4 % (30-36); Mean Corpuscular Hemoglobin 31.5 PG (26-34); Mean Corpuscular Volume 94.2 fL (80-100); Monocytes Absolute Auto 800 /uL (0-900); Monocytes Percent Auto 9.4 % (3-14); Neutrophils Absolute Auto 6400 /uL (1500-7000); Neutrophils Percent Auto 76.5 % (50-75); Platelet Count 255 X10^3/uL (150-400); Red Blood Cell Count 4.07 X10^6/uL (4.0-5.2); Red Cell Distribution Width 13.6 % (11.6-14.8); White Blood Cell Count 8.4 X10^3/uL (4.5-11.0)
--- NOTE | 2023-11-19 15:20 | PM.HP.1 ---
History of Present Illness History of Present Illness Date Patient Seen: 11/19/23 Chief complaint: rectal bleeding Narrative: Patient is a rene 78 yo F with PMH HTN, hypothyroidism and prior diverticular GIB presenting for hematochezia. Noted slight hematochezia last night. [place] well, went to bed as usual. Noted a bit in the morning as well but still felt good. She actually went out for a hike. 10 minutes in she felt woozy and decided to return home. Her friends drove her to ER for evaluation. No abdominal pain, fevers. She has been eating normally. Voiding normally. No N/V. H/o likely diverticular bleed in July this year in [place] - underwent a colonoscopy at that time. [place] [facility] - Dr. [place] - was planning for colonoscopy in January. H/o 2 CS. No other abdominal surgeries. No blood thinners. [facility] Medical History Osteoarthritis of right hip Vision disorder Osteopenia (~1995) Rosacea (~1986) Acne (~1956) Hearing loss (~2012) Thyroid nodule (~1996) History of pre-eclampsia 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) Acquired hypothyroidism (04/13/15) Diverticulosis of large intestine Essential hypertension History of adenomatous polyp of colon (04/05/11) Mitral valve prolapse (04/05/11) Mixed hyperlipidemia (04/05/11) Surgical History Anesthesia Fractures (~1981) History of thyroidectomy (~2002) Status post delivery (~1970) Status post delivery (~1969) Family History Father Rheumatoid arthritis Mother No problems noted. Social History household members: none Smoking Status: Never smoker Meds Home Medications and Allergies Home Medications Medication Instructions Recorded Confirmed Type hydrochlorothiazide 25 mg tablet 25 mg PO DAILY #90 tabs 05/29/23 09/06/23 Rx levothyroxine 50 mcg tablet 50 mcg PO DAILY #90 tabs 05/29/23 09/06/23 Rx rosuvastatin 10 mg tablet 10 mg PO DAILY #90 tabs 06/11/23 09/06/23 Rx Metamucil 2 - 3 cap PO DAILY PRN constipation 09/06/23 History calcium nut-oyv-N2-Zn-endoscopy rn-caprice 1 tab PO DAILY 09/06/23 History Allergies Allergy/AdvReac Type Severity Reaction Status Date / Time prochlorperazine Allergy Mild DYSTONIA Verified 11/19/23 09:27 ciprofloxacin AdvReac Unknown JOINT PAIN Verified 11/19/23 09:27 Review of Systems Review of Systems Narrative: as above Exam Vital Signs (past 8 hours): - 11/19/23 09:21 11/19/23 09:42 11/19/23 09:42 Temperature 97.8 F Pulse Rate 86 76 Respiratory Rate 18 Blood Pressure 177/77 H 156/77 H Pulse Oximetry 98 97 Oxygen Delivery Method Room Air 11/19/23 10:00 11/19/23 10:00 11/19/23 10:30 Temperature Pulse Rate 72 Respiratory Rate Blood Pressure 161/73 H 172/77 H Pulse Oximetry 97 Oxygen Delivery Method 11/19/23 10:30 11/19/23 11:16 11/19/23 11:18 Temperature Pulse Rate 76 91 H Respiratory Rate 30 H Blood Pressure 159/85 H Pulse Oximetry 98 Oxygen Delivery Method 11/19/23 11:18 11/19/23 11:30 11/19/23 11:30 Temperature Pulse Rate 79 80 Respiratory Rate 41 H 40 H Blood Pressure 152/79 H Pulse Oximetry 98 99 Oxygen Delivery Method 11/19/23 12:00 11/19/23 12:00 11/19/23 12:30 Temperature Pulse Rate 76 78 Respiratory Rate 41 H 34 H Blood Pressure 157/69 H Pulse Oximetry 97 96 Oxygen Delivery Method 11/19/23 12:30 11/19/23 13:00 11/19/23 13:00 Temperature Pulse Rate 75 Respiratory Rate 20 Blood Pressure 149/68 H 169/72 H Pulse Oximetry 96 Oxygen Delivery Method 11/19/23 13:30 11/19/23 13:30 11/19/23 14:06 Temperature Pulse Rate 68 79 Respiratory Rate 24 Blood Pressure 142/73 H Pulse Oximetry 96 95 Oxygen Delivery Method Room Air 11/19/23 14:07 11/19/23 14:07 11/19/23 14:30 Temperature Pulse Rate 80 61 Respiratory Rate 20 20 Blood Pressure 152/91 H Pulse Oximetry 96 98 Oxygen Delivery Method Room Air 11/19/23 14:30 11/19/23 15:00 11/19/23 15:00 Temperature Pulse Rate 82 Respiratory Rate 20 Blood Pressure 160/69 H 205/98 H Pulse Oximetry 97 Oxygen Delivery Method Room Air 11/19/23 15:10 Temperature Pulse Rate Respiratory Rate Blood Pressure 182/93 H Pulse Oximetry Oxygen Delivery Method Oxygen Delivery Method Room Air Narrative Exam Narrative: GEN: NAD, well appearing, pleasant, non toxic. Comfortable in gurney. CV: RRR Pulm:normal WOB, CTAB Abd: + BS, soft, non tender Skin: no visible rashes, WWP Psych: normal affect Neuro: normal gait, symmetric movement Objective Labs 11/19/23 14:54 11/19/23 09:38 Labs: Laboratory Results - last 24 hr 11/19/23 11/19/23 11/19/23 09:38 11:05 11:34 WBC 8.9 RBC 4.31 Hgb 13.6 13.0 Hct 40.4 38.3 MCV 93.8 MCH 31.5 MCHC 33.6 RDW 13.8 Plt Count 267 Neut % (Auto) 77.6 H Lymph % (Auto) 13.9 L [place] % (Auto) 7.9 Eos % (Auto) 0.3 L Baso % (Auto) 0.3 Neut # (Auto) 6900 Lymph # (Auto) 1200 [place] # (Auto) 700 Eos # (Auto) 0 Baso # (Auto) 0 PT 11.5 INR 1.0 APTT 33 Sodium 138 Potassium 3.9 Chloride 105 Carbon Dioxide 27 BUN 18 H Creatinine 0.63 Estimated GFR > 60 BUN/Creatinine Ratio 28.6 H Glucose 173 H Calcium 9.2 Total Bilirubin 0.5 AST 30 ALT 24 Alkaline Phosphatase 49 Total Protein 7.0 Albumin 4.2 Globulin 2.8 Albumin/Globulin Ratio 1.5 Urine Color Yellow Urine Appearance Clear Urine pH 5.5 Ur Specific [place] <=1.005 Urine Protein Negative Urine Glucose (UA) Negative Urine Ketones Negative Urine Occult Blood 2+ H Urine Nitrate Negative Urine Bilirubin Negative Urine Urobilinogen 0.2 Ur Leukocyte Esterase Negative Urine RBC 1-5/hpf Urine WBC None seen Ur Squamous Epith Cells 0-1 /hpf Urine Bacteria None seen Ur Culture Indicated? Cult not indicated Vol Urine Centrifuged 10ml (spun) Blood Type A Positive Antibody Screen Negative Assessment & Plan Assessment and plan (1) GI bleed: Qualifiers: GI bleed type/associated pathology: diverticulosis Qualified Code(s): K57.91 - Diverticulosis of intestine, part unspecified, without perforation or abscess with bleeding Status: Acute Plan: 78 yo F with PMH HTN and hypothyroidism, and h/o similar presentation of presumed diverticular bleed in July in [place] -- presenting with lower GI bleed. CT shows extensive diverticulosis with acute diverticular hemorrhage from sigmoid. Surgery consulted from ER H/H stable thus far - continue q4h checks T&S done NPO for now - OK to take meds - until seen by surgery IVF while NPO Given IV protonix, likely lower GIB Followed [facility] GI [facility] (2) Essential hypertension: Status: Chronic Plan: Stable. Holding HCTZ for now. PRN Hydralizine ordered. (3) Acquired hypothyroidism: Status: Chronic Plan: Stable. Continue replacement. Defer TSH while ill. (4) Mixed hyperlipidemia: Status: Chronic Plan: Stable. Holding statin. Plan Dispo - pending serial H/H and surgery consult DVT prophylaxis - held given acute bleed Code - Full Diet - NPO for now Time-Based Coding :: [TOTAL MINUTES] spent with patient and on the chart (including review of chart, obtaining history, exam, reviewing outside data, placing orders, documenting exam and treatment plan, and counseling patient) on [DATE].
--- NOTE | 2023-11-19 17:31 | PM.CN ---
History of Present Illness Consult details Date Patient Seen: 11/19/23 Time Patient Seen: 17:32 Chief complaint: rectal bleeding Narrative: Lauren is a very healthy 78-year-old woman who presents with rectal bleeding. She was diagnosed with diverticular bleeding in July of this year in [place] when she was visiting her children. She did have a colonoscopy at [place] and was told she had diverticular bleeding although it was not clear if the actual bleed was observed or not. She was also told she had some polyps but they were not resected at the time. She is scheduled to see one of the [facility] gastroenterologists for colonoscopy here in January. She first noticed blood on her stool this morning. She started to feel a little bit lightheaded when she was walking. She has had few other bowel movements today with blood but it does not sound like a large volume of blood so far. She has had no bowel movements since she has been in the hospital. Her hemoglobin on admission this afternoon was 12.8. She did have a CT scan that suggested active bleeding in the sigmoid colon. Meds Home Medications and Allergies Home Medications Medication Instructions Recorded Confirmed Type hydrochlorothiazide 25 mg tablet 25 mg PO DAILY #90 tabs 05/29/23 09/06/23 Rx levothyroxine 50 mcg tablet 50 mcg PO DAILY #90 tabs 05/29/23 09/06/23 Rx rosuvastatin 10 mg tablet 10 mg PO DAILY #90 tabs 06/11/23 09/06/23 Rx Metamucil 2 - 3 cap PO DAILY PRN constipation 09/06/23 History calcium [id number]-mur-[id number]-Zn-copy clerk-caprice 1 tab PO DAILY 09/06/23 History Allergies Allergy/AdvReac Type Severity Reaction Status Date / Time prochlorperazine Allergy Mild DYSTONIA Verified 11/19/23 09:27 ciprofloxacin AdvReac Unknown JOINT PAIN Verified 11/19/23 09:27 Exam Vital Signs (past 8 hours): - 11/19/23 09:42 11/19/23 09:42 11/19/23 10:00 Temperature Pulse Rate 76 Respiratory Rate Blood Pressure 156/77 H 161/73 H Pulse Oximetry 97 Oxygen Delivery Method Oxygen Flow Rate 11/19/23 10:00 11/19/23 10:30 11/19/23 10:30 Temperature Pulse Rate 72 76 Respiratory Rate Blood Pressure 172/77 H Pulse Oximetry 97 98 Oxygen Delivery Method Oxygen Flow Rate 11/19/23 11:16 11/19/23 11:18 11/19/23 11:18 Temperature Pulse Rate 91 H 79 Respiratory Rate 30 H 41 H Blood Pressure 159/85 H Pulse Oximetry 98 Oxygen Delivery Method Oxygen Flow Rate 11/19/23 11:30 11/19/23 11:30 11/19/23 12:00 Temperature Pulse Rate 80 Respiratory Rate 40 H Blood Pressure 152/79 H 157/69 H Pulse Oximetry 99 Oxygen Delivery Method Oxygen Flow Rate 11/19/23 12:00 11/19/23 12:30 11/19/23 12:30 Temperature Pulse Rate 76 78 Respiratory Rate 41 H 34 H Blood Pressure 149/68 H Pulse Oximetry 97 96 Oxygen Delivery Method Oxygen Flow Rate 11/19/23 13:00 11/19/23 13:00 11/19/23 13:30 Temperature Pulse Rate 75 68 Respiratory Rate 20 24 Blood Pressure 169/72 H Pulse Oximetry 96 96 Oxygen Delivery Method Room Air Oxygen Flow Rate 11/19/23 13:30 11/19/23 14:06 11/19/23 14:07 Temperature Pulse Rate 79 80 Respiratory Rate 20 Blood Pressure 142/73 H Pulse Oximetry 95 96 Oxygen Delivery Method Oxygen Flow Rate 11/19/23 14:07 11/19/23 14:30 11/19/23 14:30 Temperature Pulse Rate 61 Respiratory Rate 20 Blood Pressure 152/91 H 160/69 H Pulse Oximetry 98 Oxygen Delivery Method Room Air Oxygen Flow Rate 11/19/23 15:00 11/19/23 15:00 11/19/23 15:10 Temperature Pulse Rate 82 Respiratory Rate 20 Blood Pressure 205/98 H 182/93 H Pulse Oximetry 97 Oxygen Delivery Method Room Air Oxygen Flow Rate 11/19/23 16:41 Temperature 99.0 F Pulse Rate 71 Respiratory Rate 18 Blood Pressure 169/87 H Pulse Oximetry 97 Oxygen Delivery Method Oxygen Flow Rate 0 Oxygen Delivery Method Room Air Oxygen Flow Rate 0 Const General: healthy appearing Resp Effort & Inspection: normal respiratory effort Objective Labs 11/19/23 14:54 11/19/23 09:38 Labs: Laboratory Results - last 24 hr 11/19/23 11/19/23 11/19/23 09:38 11:05 11:34 WBC 8.9 RBC 4.31 Hgb 13.6 13.0 Hct 40.4 38.3 MCV 93.8 MCH 31.5 MCHC 33.6 RDW 13.8 Plt Count 267 Neut % (Auto) 77.6 H Lymph % (Auto) 13.9 L [place] % (Auto) 7.9 Eos % (Auto) 0.3 L Baso % (Auto) 0.3 Neut # (Auto) 6900 Lymph # (Auto) 1200 [place] # (Auto) 700 Eos # (Auto) 0 Baso # (Auto) 0 PT 11.5 INR 1.0 APTT 33 Sodium 138 Potassium 3.9 Chloride 105 Carbon Dioxide 27 BUN 18 H Creatinine 0.63 Estimated GFR > 60 BUN/Creatinine Ratio 28.6 H Glucose 173 H Calcium 9.2 Total Bilirubin 0.5 AST 30 ALT 24 Alkaline Phosphatase 49 Total Protein 7.0 Albumin 4.2 Globulin 2.8 Albumin/Globulin Ratio 1.5 Urine Color Yellow Urine Appearance Clear Urine pH 5.5 Ur Specific [place] <=1.005 Urine Protein Negative Urine Glucose (UA) Negative Urine Ketones Negative Urine Occult Blood 2+ H Urine Nitrate Negative Urine Bilirubin Negative Urine Urobilinogen 0.2 Ur Leukocyte Esterase Negative Urine RBC 1-5/hpf Urine WBC None seen Ur Squamous Epith Cells 0-1 /hpf Urine Bacteria None seen Ur Culture Indicated? Cult not indicated Vol Urine Centrifuged 10ml (spun) Blood Type A Positive Antibody Screen Negative 11/19/23 14:54 WBC 8.4 RBC 4.07 Hgb 12.8 Hct 38.3 MCV 94.2 MCH 31.5 MCHC 33.4 RDW 13.6 Plt Count 255 Neut % (Auto) 76.5 H Lymph % (Auto) 13.3 L [place] % (Auto) 9.4 Eos % (Auto) 0.5 L Baso % (Auto) 0.3 Neut # (Auto) 6400 Lymph # (Auto) 1100 [place] # (Auto) 800 Eos # (Auto) 0 Baso # (Auto) 0 PT INR APTT Sodium Potassium Chloride Carbon Dioxide BUN Creatinine Estimated GFR BUN/Creatinine Ratio Glucose Calcium Total Bilirubin AST ALT Alkaline Phosphatase Total Protein Albumin Globulin Albumin/Globulin Ratio Urine Color Urine Appearance Urine pH Ur Specific Energy Urine Protein Urine Glucose (UA) Urine Ketones Urine Occult Blood Urine Nitrate Urine Bilirubin Urine Urobilinogen Ur Leukocyte Esterase Urine RBC Urine WBC Ur Squamous Epith Cells Urine Bacteria Ur Culture Indicated? Vol Urine Centrifuged Blood Type Antibody Screen [facility] Medical History Osteoarthritis of right hip Vision disorder Osteopenia (~1995) Rosacea (~1986) Acne (~1956) Hearing loss (~2012) Thyroid nodule (~1996) History of pre-eclampsia 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) Acquired hypothyroidism (04/13/15) Diverticulosis of large intestine Essential hypertension History of adenomatous polyp of colon (04/05/11) Mitral valve prolapse (04/05/11) Mixed hyperlipidemia (04/05/11) Surgical History Anesthesia Fractures (~1981) History of thyroidectomy (~2002) Status post delivery (~1970) Status post delivery (~1969) Family History Father Rheumatoid arthritis Mother No problems noted. Social History household members: none Tobacco & Substance Use Smoking Status: Never smoker Assessment & Plan Assessment and plan (1) Diverticular hemorrhage: Status: Acute Plan GI bleeding is presumably from diverticular bleeding given the history and CT findings. She is relatively asymptomatic time with normal vital signs and normal hemoglobin so far. We discussed the option of prepping for a colonoscopy tomorrow or monitoring overnight and discharge home tomorrow if there are no further signs of GI bleeding and she can follow up with her boat finisher. She would prefer to follow up with her boat finisher. If she shows signs of repeat bleeding tonight, hemodynamic changes or profound drop in hemoglobin we can reassess the plan. Time-Based Coding :: [TOTAL MINUTES] spent with patient and on the chart (including review of chart, obtaining history, exam, reviewing outside data, placing orders, documenting exam and treatment plan, and counseling patient) on [DATE].
[2023-11-19 17:39] LABS: Add Manual Diff / Slide Review NO; Basophils Absolute Auto 100 /uL (0-100); Basophils Percent Auto 0.7 % (0-2); Eosinophils Absolute Auto 0 /uL (0-450); Eosinophils Percent Auto 0.4 % (2-4); Hematocrit 39.1 % (36-46); Hemoglobin 13.1 g/dL (12.0-16.0); Lymphocytes Absolute Auto 1200 /uL (1100-4500); Lymphocytes Percent Auto 15.5 % (25-40); Mean Corpuscular HGB Conc 33.6 % (30-36); Mean Corpuscular Hemoglobin 31.3 PG (26-34); Mean Corpuscular Volume 93.1 fL (80-100); Monocytes Absolute Auto 700 /uL (0-900); Neutrophils Absolute Auto 5500 /uL (1500-7000); Neutrophils Percent Auto 73.4 % (50-75); Platelet Count 264 X10^3/uL (150-400); Red Blood Cell Count 4.19 X10^6/uL (4.0-5.2); Red Cell Distribution Width 13.7 % (11.6-14.8); White Blood Cell Count 7.5 X10^3/uL (4.5-11.0)
[2023-11-19] MEDS: SODIUM CHLORIDE 0.9% 1,000 ML 100 ML IV (17:49)
[2023-11-19 22:27] LABS: Add Manual Diff / Slide Review NO; Basophils Absolute Auto 0 /uL (0-100); Basophils Percent Auto 0.5 % (0-2); Eosinophils Absolute Auto 0 /uL (0-450); Eosinophils Percent Auto 0.7 % (2-4); Hematocrit 35.2 % (36-46); Hemoglobin 11.9 g/dL (12.0-16.0); Lymphocytes Absolute Auto 1300 /uL (1100-4500); Lymphocytes Percent Auto 19.4 % (25-40); Mean Corpuscular HGB Conc 33.8 % (30-36); Mean Corpuscular Hemoglobin 31.4 PG (26-34); Monocytes Absolute Auto 600 /uL (0-900); Monocytes Percent Auto 9.6 % (3-14); Neutrophils Absolute Auto 4500 /uL (1500-7000); Neutrophils Percent Auto 69.8 % (50-75); Platelet Count 251 X10^3/uL (150-400); Red Blood Cell Count 3.78 X10^6/uL (4.0-5.2); Red Cell Distribution Width 13.9 % (11.6-14.8); White Blood Cell Count 6.5 X10^3/uL (4.5-11.0)
[2023-11-20 00:03] VITALS: BP 131/65; PULSE 69; RESP 19; TEMP 37.1; O2SAT 96
[2023-11-20 04:37] VITALS: BP 146/77; PULSE 67; RESP 19; TEMP 37.2; O2SAT 97
[2023-11-20] MEDS: SODIUM CHLORIDE 0.9% 1,000 ML 100 ML IV (04:52)
[2023-11-20] MEDS: LEVOTHYROXINE 50 MCG TABLET PO (05:57)
[2023-11-20 07:43] LABS: BUN Creatinine Ratio 24.6 (6-22); Blood Urea Nitrogen 14 mg/dL (7-17); Calcium 8.5 mg/dL (8.4-10.2); Carbon Dioxide 23 mmol/L (22-32); Chloride 109 mmol/L (98-107); Estimated Glomerular Filt Rate > 60 mL/min (>60); Glucose 89 mg/dL (80-110); HEMOLYSIS < 15 (0-50); Potassium 3.5 mmol/L (3.4-5.1); Sodium 137 mmol/L (137-145)
[2023-11-20 08:00] VITALS: BP 160/79; PULSE 72; RESP 19; TEMP 37.2; O2SAT 96
[2023-11-20 08:07] LABS: Add Manual Diff / Slide Review NO; Basophils Absolute Auto 0 /uL (0-100); Basophils Percent Auto 0.6 % (0-2); Eosinophils Absolute Auto 100 /uL (0-450); Eosinophils Percent Auto 1.1 % (2-4); Hematocrit 37.4 % (36-46); Hemoglobin 12.5 g/dL (12.0-16.0); Lymphocytes Absolute Auto 1300 /uL (1100-4500); Lymphocytes Percent Auto 23.7 % (25-40); Mean Corpuscular HGB Conc 33.4 % (30-36); Mean Corpuscular Hemoglobin 31.3 PG (26-34); Mean Corpuscular Volume 93.6 fL (80-100); Monocytes Absolute Auto 600 /uL (0-900); Monocytes Percent Auto 10.9 % (3-14); Neutrophils Absolute Auto 3500 /uL (1500-7000); Neutrophils Percent Auto 63.7 % (50-75); Platelet Count 261 X10^3/uL (150-400); Red Blood Cell Count 3.99 X10^6/uL (4.0-5.2); Red Cell Distribution Width 13.6 % (11.6-14.8); White Blood Cell Count 5.4 X10^3/uL (4.5-11.0)
[2023-11-20] MEDS: hydroCHLOROthiazide 25 MG TABLET PO (08:17)
--- NOTE | 2023-11-20 08:38 | PC.NURSE ---
Addendum entered by Susana Alex R.N. 11/20/23 08:45: Patient just voided and had an xs stool, brown in color, no blood noted, mixed with urine. Original Note: Patient is heplocked and independent in her room. She tolerated some of her clear liquids and denies any bleeding in her stool or feeling dizzy. VSS.
--- NOTE | 2023-11-20 09:09 | P.DS_ITS ---
History of Present Illness History of Present Illness Date Patient Seen: 11/20/23 Chief complaint: rectal bleeding Narrative: Patient is a rene 78 yo F with PMH HTN, hypothyroidism and prior diverticular GIB presenting for hematochezia. Noted slight hematochezia last night. Amidon well, went to bed as usual. Noted a bit in the morning as well but still felt good. She actually went out for a hike. 10 minutes in she felt woozy and decided to return home. Her friends drove her to ER for evaluation. No abdominal pain, fevers. She has been eating normally. Voiding normally. No N/V. H/o likely diverticular bleed in July this year in [place] - underwent a colonoscopy at that time. Followed by [facility] - Dr. Ventura - was planning for colonoscopy in January. H/o 2 CS. No other abdominal surgeries. No blood thinners. Discharge Providers Provider Date of admission: 11/19/23 13:57 Discharge Date: 11/20/23 Primary care physician: Marbin Grove MD Consults: 11/19/23 16:13 Consult to General Surgery Routine Comment: Consulting Provider: Josh King Reason for consultation: GI bleed Discharge provider: Anahi Rai MD Summary Hospital Course Hospital Course: 78 yo F with PMH HTN and hypothyroidism, and h/o similar presentation of presumed diverticular bleed in July in [place] -- presented with lower GI bleed. CT showed extensive diverticulosis with acute diverticular hemorrhage from sigmoid. Surgery consulted in ER - admitted for observation. H/H stable on serial checks. No manuel bleeding overnight or in the morning. Options discussed with patient of inpatient colonoscopy vs follow up with GI for likely colonoscopy - elected for follow up with her GI given stability. Discharged to home with close PCP f/u. No medication changes. Status at Discharge Cognitive/behavioral status at discharge: oriented Functional status at discharge: independent ambulation Overall status at discharge: patient is back to baseline Time Spent with Patient Time spent: Less than 30 minutes Exam Vital Signs (past 8 hours): - 11/20/23 04:37 11/20/23 08:00 Temperature 99 F 99.0 F Pulse Rate 67 72 Respiratory Rate 19 19 Blood Pressure 146/77 H 160/79 H Pulse Oximetry 97 96 Oxygen Flow Rate 0 0 Oxygen Delivery Method Room Air Oxygen Flow Rate 0 Narrative Exam Narrative: GEN: NAD, well appearing, pleasant CV: RRR Pulm:normal WOB, CTAB Abd: soft, non tender, no rebound or guarding Skin: no visible rashes, WWP Psych: normal affect Neuro: normal gait, symmetric movement Objective Labs 11/20/23 06:55 11/20/23 07:16 Labs: Laboratory Results - last 24 hr 11/19/23 11/19/23 11/19/23 09:38 11:05 11:34 WBC 8.9 RBC 4.31 Hgb 13.6 13.0 Hct 40.4 38.3 MCV 93.8 MCH 31.5 MCHC 33.6 RDW 13.8 Plt Count 267 Neut % (Auto) 77.6 H Lymph % (Auto) 13.9 L [place] % (Auto) 7.9 Eos % (Auto) 0.3 L Baso % (Auto) 0.3 Neut # (Auto) 6900 Lymph # (Auto) 1200 [place] # (Auto) 700 Eos # (Auto) 0 Baso # (Auto) 0 PT 11.5 INR 1.0 APTT 33 Sodium 138 Potassium 3.9 Chloride 105 Carbon Dioxide 27 BUN 18 H Creatinine 0.63 Estimated GFR > 60 BUN/Creatinine Ratio 28.6 H Glucose 173 H Calcium 9.2 Total Bilirubin 0.5 AST 30 ALT 24 Alkaline Phosphatase 49 Total Protein 7.0 Albumin 4.2 Globulin 2.8 Albumin/Globulin Ratio 1.5 Urine Color Yellow Urine Appearance Clear Urine pH 5.5 Ur Specific [place] <=1.005 Urine Protein Negative Urine Glucose (UA) Negative Urine Ketones Negative Urine Occult Blood 2+ H Urine Nitrate Negative Urine Bilirubin Negative Urine Urobilinogen 0.2 Ur Leukocyte Esterase Negative Urine RBC 1-5/hpf Urine WBC None seen Ur Squamous Epith Cells 0-1 /hpf Urine Bacteria None seen Ur Culture Indicated? Cult not indicated Vol Urine Centrifuged 10ml (spun) Blood Type A Positive Antibody Screen Negative 11/19/23 11/19/23 11/19/23 14:54 17:32 22:15 WBC 8.4 7.5 6.5 RBC 4.07 4.19 3.78 L Hgb 12.8 13.1 11.9 L Hct 38.3 39.1 35.2 L MCV 94.2 93.1 93.0 MCH 31.5 31.3 31.4 MCHC 33.4 33.6 33.8 RDW 13.6 13.7 13.9 Plt Count 255 264 251 Neut % (Auto) 76.5 H 73.4 69.8 Lymph % (Auto) 13.3 L 15.5 L 19.4 L [place] % (Auto) 9.4 10.0 9.6 Eos % (Auto) 0.5 L 0.4 L 0.7 L Baso % (Auto) 0.3 0.7 0.5 Neut # (Auto) 6400 5500 4500 Lymph # (Auto) 1100 1200 1300 [place] # (Auto) 800 700 600 Eos # (Auto) 0 0 0 Baso # (Auto) 0 100 0 PT INR APTT Sodium Potassium Chloride Carbon Dioxide BUN Creatinine Estimated GFR BUN/Creatinine Ratio Glucose Calcium Total Bilirubin AST ALT Alkaline Phosphatase Total Protein Albumin Globulin Albumin/Globulin Ratio Urine Color Urine Appearance Urine pH Ur Specific [place] Urine Protein Urine Glucose (UA) Urine Ketones Urine Occult Blood Urine Nitrate Urine Bilirubin Urine Urobilinogen Ur Leukocyte Esterase Urine RBC Urine WBC Ur Squamous Epith Cells Urine Bacteria Ur Culture Indicated? Vol Urine Centrifuged Blood Type Antibody Screen 11/20/23 11/20/23 06:55 07:16 WBC 5.4 RBC 3.99 L Hgb 12.5 Hct 37.4 MCV 93.6 MCH 31.3 MCHC 33.4 RDW 13.6 Plt Count 261 Neut % (Auto) 63.7 Lymph % (Auto) 23.7 L [place] % (Auto) 10.9 Eos % (Auto) 1.1 L Baso % (Auto) 0.6 Neut # (Auto) 3500 Lymph # (Auto) 1300 [place] # (Auto) 600 Eos # (Auto) 100 Baso # (Auto) 0 PT INR APTT Sodium 137 Potassium 3.5 Chloride 109 H Carbon Dioxide 23 BUN 14 Creatinine 0.57 Estimated GFR > 60 BUN/Creatinine Ratio 24.6 H Glucose 89 Calcium 8.5 Total Bilirubin AST ALT Alkaline Phosphatase Total Protein Albumin Globulin Albumin/Globulin Ratio Urine Color Urine Appearance Urine pH Ur Specific [place] Urine Protein Urine Glucose (UA) Urine Ketones Urine Occult Blood Urine Nitrate Urine Bilirubin Urine Urobilinogen Ur Leukocyte Esterase Urine RBC Urine WBC Ur Squamous Epith Cells Urine Bacteria Ur Culture Indicated? Vol Urine Centrifuged Blood Type Antibody Screen [facility] Medical History Osteoarthritis of right hip Vision disorder Osteopenia (~1995) Rosacea (~1986) Acne (~1956) Hearing loss (~2012) Thyroid nodule (~1996) History of pre-eclampsia 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) Acquired hypothyroidism (04/13/15) Diverticulosis of large intestine Essential hypertension History of adenomatous polyp of colon (04/05/11) Mitral valve prolapse (04/05/11) Mixed hyperlipidemia (04/05/11) Surgical History Anesthesia Fractures (~1981) History of thyroidectomy (~2002) Status post delivery (~1970) Status post delivery (~1969) Family History Father Rheumatoid arthritis Mother No problems noted. Social History household members: none Smoking Status: Never smoker Discharge Plan Discharge Plan Patient Disposition: Home Discharge orders & Medications Prescriptions: Continued hydrochlorothiazide 25 mg tablet 25 mg PO DAILY Qty: 90 3RF levothyroxine 50 mcg tablet 50 mcg PO DAILY Qty: 90 3RF rosuvastatin 10 mg tablet 10 mg PO DAILY Qty: 90 3RF calcium inb-jgu-T8-Zn-copy manager-caprice 1 tab PO DAILY Follow up/Referrals: Marbin Grove MD [Primary Care Provider] - (scheduled for 11/26 at 10:30 -- check in at 10:15) Diet/Activity/Treatments Diet: Diet as Tolerated Visit Report/Discharge Packet Stand Alone Forms: Patient Portal/API, Stroke Signs & Symptoms Discharge Data Primary Care Provider: Marbin Grove Attending Provider: Anahi Rai Admit Date/Time: 11/19/23 13:57
--- NOTE | 2023-11-20 13:28 | CM.DANOTE ---
Initial DCP Assessment Visit Note Reviewed EMR and team rounds for pt's medical status. This SUPERCALENDER OPERATOR HELPER was unable to meet with pt f/f due to triage needs prior to her departure home. Pt resides alone and independently in her own home in [place]. Her friends were able to transport her home earlier today after she was medically cleared for home d/c. Payor: Medicare PCP: Dr. Grove Pt presented to the ED last evening with c/o rectal bleeding. She had been diagnosed with a previous episode of diverticular bleeding earlier in July of this year. In the ED, she was found to have another episode of diverticular bleeding, so was placed in OBS for continued monitoring for possible surgical intervention. She did not have any further bleeding overnight, and this morning her H&H remained stable, so she was cleared for home d/c. No DCP needs were identified during her stay. Discharge Planning/Care Management Advanced directive, confirm from FAMILY Start: 11/19/23 18:00 Freq: Q24H Status: Discharge Protocol: Document 11/19/23 18:00 MM (Rec: 11/19/23 18:27 MM [id number]) Advance Directive, confirm on record Time 18:00 Person contacted Patient Copy received No CM Discharge Assessment Start: 11/20/23 13:26 Freq: Status: Active Protocol: Document 11/20/23 13:26 DPL (Rec: 11/20/23 13:28 DPL [id number]) Discharge Planning Assessment Assigned [employer] MARIZA Ritter Advance Directives? Yes Advance Directives on File No History Provided By Medical Record Has Patient been admitted in last 30 No days? Prior Living Arrangements House Household Members none Type of transporation used prior to Drives own vehicle admit Independent with ADL's Yes Is patient alert and oriented? Yes Comment N/A Caregiver for Another No Comment No identified d/c needs identified during this admission. Barriers to Discharge No Discharge Plan Home Transportation Arrangement Friends Referrals Initiated None needed Whiteboard Updated in Patient Room with Yes name and ext. # of [employer] Review Status In Process Please Provide Date Initial DC 11/20/23 Assessment Was Performed
== END 2023-11-20 12:02 | disposition home or self-care (01) ==
LOC: ED 13:36 → AC 13:58
PROVIDERS: Admitting Provider Family Medicine; Emergency Provider Emergency Medicine; PCP Internal Medicine; Referring Provider Emergency Medicine; Visit Provider Family Medicine
DX: K62.5 Hemorrhage of anus and rectum (principal); K57.31 Diverticulosis of large intestine without perforation or abscess with bleeding; I10 Essential (primary) hypertension
CPT/HCPCS: 36415; 74174; 80048; 80053; 81001; 81003; 85014; 85018; 85025; 85610; 85730; 86850; 86900; 86901; 93005; 96361; 96374; 99222; 99232; 99238; 99284; G0378; J2470; Q9967

== ENCOUNTER 2023-11-22 20:37 | Emergency (ER) | payer MEDICARE, OTHER, SELFPAY ==
[2023-11-22 21:04] VITALS: BP 196/81; PULSE 71; RESP 16; TEMP 36.9; O2SAT 98; BMI 20.5
--- NOTE | 2023-11-22 21:14 | EKG_ITS ---
[facility] [address] [place] [address] Test Date: 2023-11-22 Pat Name: Lauren Pringle Department: [facility] Room: Gender: Female Customer Care Manager: : 1945 Requested By: Order Number: [id number] Reading MD: Abdulaziz Pimentel Measurements Intervals [place] Rate: 71 P: 46 GA: 188 QRS: -4 QRSD: 90 T: 8 QT: 404 QTc: 439 Interpretive Statements Sinus rhythm with occasional premature ventricular complexes Possible Left atrial enlargement Minimal voltage criteria for LVH, may be normal variant ( R in aVL ) Inferior infarct , age undetermined Electronically Signed On 11-26-2023 8:40:40 PDT by Abdulaziz Pimentel
--- NOTE | 2023-11-22 21:14 | DI.RAD.S_ITS ---
PROCEDURE: XR CHEST 1V INDICATIONS: chest pain TECHNIQUE: One view of the chest was acquired. COMPARISON: None. FINDINGS: Surgical changes and devices: None. Lungs and pleura: Lungs are clear. No pleural effusions or pneumothorax. Mediastinum: Mediastinal contours appear normal. Heart size is normal. Bones and chest wall: No suspicious bony lesions. Overlying soft tissues appear unremarkable. IMPRESSION: No acute cardiopulmonary abnormality is seen. Dictated by: Tim Huang M.D. on 11/22/2023 at 22:06 Approved by: Tim Huang M.D. on 11/22/2023 at 22:06
[2023-11-22 21:45] LABS: Add Manual Diff / Slide Review NO; Basophils Absolute Auto 0 /uL (0-100); Basophils Percent Auto 0.5 % (0-2); Eosinophils Absolute Auto 100 /uL (0-450); Eosinophils Percent Auto 0.9 % (2-4); Hematocrit 38.8 % (36-46); Lymphocytes Absolute Auto 1500 /uL (1100-4500); Lymphocytes Percent Auto 25.7 % (25-40); Mean Corpuscular HGB Conc 33.4 % (30-36); Mean Corpuscular Hemoglobin 31.1 PG (26-34); Mean Corpuscular Volume 93.2 fL (80-100); Monocytes Absolute Auto 600 /uL (0-900); Monocytes Percent Auto 9.8 % (3-14); Neutrophils Absolute Auto 3800 /uL (1500-7000); Neutrophils Percent Auto 63.1 % (50-75); Platelet Count 287 X10^3/uL (150-400); Red Blood Cell Count 4.17 X10^6/uL (4.0-5.2); Red Cell Distribution Width 13.5 % (11.6-14.8)
[2023-11-22 21:50] LABS: INR 1.1 (0.9-1.3); Prothrombin Time 12.2 SECONDS (9.4-12.5)
[2023-11-22 21:53] LABS: PTT Partial Thromboplastin Tim 35 SECONDS (25.1-36.5)
[2023-11-22 21:57] LABS: Alanine Aminotransferase 20 IU/L (<35); Albumin 4.3 g/dL (3.5-5.0); Albumin Globulin Ratio 1.4 (1.0-2.8); Alkaline Phosphatase 58 U/L (38-126); Aspartate Aminotransferase 31 IU/L (14-36); BUN Creatinine Ratio 26.5 (6-22); Bilirubin Total 0.5 mg/dL (0.2-1.3); Blood Urea Nitrogen 18 mg/dL (7-17); Calcium 9.4 mg/dL (8.4-10.2); Carbon Dioxide 28 mmol/L (22-32); Chloride 104 mmol/L (98-107); Creatine Kinase 96 U/L (30-135); Estimated Glomerular Filt Rate > 60 mL/min (>60); Glucose 114 mg/dL (80-110); HEMOLYSIS < 15 (0-50); Lipase 91 U/L (23-300); Magnesium 2.1 mg/dL (1.6-2.3); Potassium 3.7 mmol/L (3.4-5.1); Sodium 138 mmol/L (137-145); Total Protein 7.3 g/dL (6.3-8.2)
[2023-11-22 22:08] LABS: NT-proBNP (BNP-Adult 18+) 509 pg/mL (<450); Troponin I < 0.012 ng/mL (0.01-0.034)
[2023-11-22 23:22] LABS: Hematocrit 37.6 % (36-46); Hemoglobin 12.6 g/dL (12.0-16.0)
[2023-11-22 23:32] VITALS: PULSE 72; O2SAT 99
[2023-11-22 23:33] VITALS: BP 205/98; PULSE 69; O2SAT 99
--- NOTE | 2023-11-22 23:48 | ED.RECABL ---
HPI - Recheck/Abnormal Lab/Rx General Chief Complaint: Recheck/Abnormal Lab/Rx Stated Complaint: rectal bleeding Time Seen by Provider: 11/22/23 22:46 Source: patient Mode of arrival: Ambulatory History of Present Illness HPI narrative: Patient is an 78-year-old female. Not on anticoagulation. Here for evaluation of a couple episodes of bright red blood per rectum this evening. She was admitted to the hospital earlier this week for rectal bleeding. Did not receive a blood transfusion. Discussions with general surgery about a colonoscopy however she had a episode approximately 3 months ago a bright-red blood per rectum were that also caused her to be admitted to the hospital when she had a colonoscopy at that time. She has followed up with GI since that 1st admission to the hospital. She was scheduled for a repeat colonoscopy in January of this year. She stated that since she was discharged from the hospital earlier this week she has had normal bowel movements. She has had a couple this evening with bright red blood but then also had other soft bowel movements without any blood. She denies any fevers. No chest pain. No shortness of breath. No abdominal pain. No blood in her urine or other urinary symptoms. She was not vomiting. Related Data Home Medications Medication Instructions Recorded Confirmed calcium wpv-svn-B5-Zn-helicopter pilot-caprice 1 tab PO DAILY 09/06/23 11/19/23 Previous Rx's Medication Instructions Recorded hydrochlorothiazide 25 mg tablet 25 mg PO DAILY #90 tabs 05/29/23 levothyroxine 50 mcg tablet 50 mcg PO DAILY #90 tabs 05/29/23 rosuvastatin 10 mg tablet 10 mg PO DAILY #90 tabs 06/11/23 Allergies Allergy/AdvReac Type Severity Reaction Status Date / Time prochlorperazine Allergy Mild DYSTONIA Verified 11/19/23 09:27 ciprofloxacin AdvReac Unknown JOINT PAIN Verified 11/19/23 09:27 Review of Systems Review of Systems ROS Unobtainable: All systems reviewed & are unremarkable except as noted in HPI and below Patient History Medical History Osteoarthritis of right hip Vision disorder Osteopenia (~1995) Rosacea (~1986) Acne (~1956) Hearing loss (~2012) Thyroid nodule (~1996) History of pre-eclampsia 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) Acquired hypothyroidism (04/13/15) Diverticulosis of large intestine Essential hypertension History of adenomatous polyp of colon (04/05/11) Mitral valve prolapse (04/05/11) Mixed hyperlipidemia (04/05/11) Surgical History Anesthesia Fractures (~1981) History of thyroidectomy (~2002) Status post delivery (~1970) Status post delivery (~1969) Family History Father Rheumatoid arthritis Mother No problems noted. Social History household members: none Smoking Status: Never smoker Smoking Status: Never smoker alcohol intake frequency: a few times a week Substance Use Type: does not use Exam Initial Vital Signs Initial Vital Signs: Vital Signs Temperature 98.4 F 11/22/23 21:04 Pulse Rate 71 11/22/23 21:04 Respiratory Rate 16 11/22/23 21:04 Blood Pressure 196/81 H 11/22/23 21:04 Pulse Oximetry 98 11/22/23 21:04 Oxygen Delivery Method Room Air 11/22/23 21:04 Const General: cooperative, comfortable and No ill appearing HENMT Head: normal to inspection and normocephalic Resp Effort & Inspection: normal respiratory effort Auscultation: clear to auscultation bilaterally Cardio Rate: regular rate Rhythm: regular rhythm GI Inspection: normal to inspection and non-distended Skin General: no rashes or lesions noted Neuro General: patient alert, patient awake and moves all extremities Course Orders Ordered: ED Orders 11/22/23 21:14 XR chest 1V Stat EKG-12 Lead Stat 11/22/23 21:28 Complete Blood Count AUTO DIFF Stat Comprehensive Metabolic Panel Stat Lipase Stat Magnesium Stat NT-proBNP (BNP-Adult 18+) Stat PTT Partial Thromboplastin [place] Stat Prothrombin Time INR Stat Troponin & CK Cardiac Panel Stat 11/22/23 23:14 Hemoglobin and Hematocrit Stat Vital Signs Vital signs: Vital Signs - 8 hr 11/22/23 21:04 11/22/23 23:32 11/22/23 23:33 Temperature 98.4 F Pulse Rate 71 72 Respiratory Rate 16 Blood Pressure 196/81 H 205/98 H Pulse Oximetry 98 99 Oxygen Delivery Method Room Air 11/22/23 23:33 Temperature Pulse Rate 69 Respiratory Rate Blood Pressure Pulse Oximetry 99 Oxygen Delivery Method Room Air MDM - Recheck/Abnormal Lab/Rx Lab Data Attestation: I reviewed the patient's lab results. 11/22/23 23:14 11/22/23 21:28 Labs: Lab Results 11/22/23 11/22/23 Range/Units 21:28 23:14 WBC 6.0 (4.5-11.0) X10^3/uL RBC 4.17 (4.0-5.2) X10^6/uL Hgb 13.0 12.6 (12.0-16.0) g/dL Hct 38.8 37.6 (36-46) % MCV 93.2 (80-100) fL MCH 31.1 (26-34) PG MCHC 33.4 (30-36) % RDW 13.5 (11.6-14.8) % Plt Count 287 (150-400) X10^3/uL Neut % (Auto) 63.1 (50-75) % Lymph % (Auto) 25.7 (25-40) % [place] % (Auto) 9.8 (3-14) % Eos % (Auto) 0.9 L (2-4) % Baso % (Auto) 0.5 (0-2) % Neut # (Auto) 3800 (9513-2937) /uL Lymph # (Auto) 1500 (3999-0062) /uL [place] # (Auto) 600 (0-900) /uL Eos # (Auto) 100 (0-450) /uL Baso # (Auto) 0 (0-100) /uL PT 12.2 (9.4-12.5) SECONDS INR 1.1 (0.9-1.3) APTT 35 (25.1-36.5) SECONDS Sodium 138 (137-145) mmol/L Potassium 3.7 (3.4-5.1) mmol/L Chloride 104 (98-107) mmol/L Carbon Dioxide 28 (22-32) mmol/L BUN 18 H (7-17) mg/dL Creatinine 0.68 (0.52-1.04) mg/dL Estimated GFR > 60 (>60) mL/min BUN/Creatinine Ratio 26.5 H (6-22) Glucose 114 H (80-110) mg/dL Calcium 9.4 (8.4-10.2) mg/dL Magnesium 2.1 (1.6-2.3) mg/dL Total Bilirubin 0.5 (0.2-1.3) mg/dL AST 31 (14-36) IU/L ALT 20 (<35) IU/L Alkaline Phosphatase 58 (38-126) U/L Total Creatine Kinase 96 (30-135) U/L Troponin I < 0.012 (0.01-0.034) ng/mL NT-Pro-B Natriuret Pep 509 H (<450) pg/mL Total Protein 7.3 (6.3-8.2) g/dL Albumin 4.3 (3.5-5.0) g/dL Globulin 3.0 (1.7-4.1) g/dL Albumin/Globulin Ratio 1.4 (1.0-2.8) Lipase 91 (23-300) U/L Imaging Data Chest x-ray: Radiologist's Impression: PROCEDURE: XR CHEST 1V INDICATIONS: chest pain TECHNIQUE: One view of the chest was acquired. COMPARISON: None. FINDINGS: Surgical changes and devices: None. Lungs and pleura: Lungs are clear. No pleural effusions or pneumothorax. Mediastinum: Mediastinal contours appear normal. Heart size is normal. Bones and chest wall: No suspicious bony lesions. Overlying soft tissues appear unremarkable. IMPRESSION: No acute cardiopulmonary abnormality is seen. ECG Data Attestation: I personally reviewed and interpreted this ECG as follows: Interpretation: Sinus rhythm Ventricular rate is 71 Occasional PVC Normal axis Normal QRS No ST T wave changes MDM Narrative Medical decision making narrative: Patient is not hypotensive. Not hypoxic. Has no other signs of blood loss anemia. Has had normal hemoglobin hematocrit testing here in the ER. No abdominal pain. No indication for admission to the hospital based on her presentation today. I discussed the lab test with the patient. Advised that she contact her hvac lead to discuss whether or not they should move the colonoscopy sooner than January because of the continued symptoms. I do feel we should hold on any radiologic studies for now. He was given return precautions and follow-up instructions. She expressed understanding and agreement. Discharge Plan Departure Patient Disposition: Home Clinical Impression: Rectal bleeding Instructions: DI for Rectal Bleeding Activity Restrictions/Additional Instructions: Continue to take all of your medications as directed. I do recommend that tomorrow you contact both your primary doctor's office and also your GI doctor's office to schedule follow-up appointments. Return to emergency department for new or worsening symptoms. Prescriptions: No Action hydrochlorothiazide 25 mg tablet 25 mg PO DAILY Qty: 90 3RF levothyroxine 50 mcg tablet 50 mcg PO DAILY Qty: 90 3RF rosuvastatin 10 mg tablet 10 mg PO DAILY Qty: 90 3RF calcium miu-ysf-C5-Zn-helicopter pilot-caprice 1 tab PO DAILY Referrals: Marbin Grove MD [Primary Care Provider] - Stand Alone Forms: Patient Portal/API
== END 2023-11-23 00:25 | disposition home or self-care (01) ==
PROVIDERS: Emergency Provider Emergency Medicine; PCP Internal Medicine
DX: K62.5 Hemorrhage of anus and rectum (principal); R07.9 Chest pain, unspecified
CPT/HCPCS: 36415; 71045; 80053; 82550; 83690; 83735; 83880; 84484; 85014; 85018; 85025; 85610; 85730; 93005; 99283; 99284

== ENCOUNTER 2023-12-19 08:17 | Day surgery (SDC) | payer MEDICARE, OTHER, SELFPAY ==
--- NOTE | 2023-12-19 | PATH_ITS ---
[facility] Accession Number: [id number] No. of containers..01 Tissue . 01 Material submitted: . colon - COLON POLYP @ 60 CM . 01 Diagnosis: COLON POLYP @ 60 CM: Colonic mucosa with benign lymphoid aggregate. No neoplasm identified. [facility] 12/24/2023 1323 Local . 01 Electronically signed: . Guy Parada MD, Pathologist NPI- [id number] . 01 Gross description: . Received in formalin with two patient identifiers and colon polyp at 60 cm, is a single esteban soft tissue fragment, 0.3 cm in greatest dimension. Submitted in A1. ([id number]) /MRV 12/24/2023 1323 Local . 01 Pathologist provided ICD-10: K63.89 . 01 CPT . 509749 Specimen Comment: A courtesy copy of this report has been sent to [phone] Performed at: [address] [address], [place], [place] [id number] MD Guy Parada MD Phone: [phone]
--- NOTE | 2023-12-19 08:37 | PM.HP.1 ---
History of Present Illness History of Present Illness Date Patient Seen: 12/19/23 Chief complaint: Dx Colonoscopy Narrative: Rectal bleeding with history of polyp left behind at the time of diverticular bleed. [facility] Medical History (Updated 12/08/23 @ 00:01 by ) Diverticular hemorrhage Osteoarthritis of right hip Vision disorder Osteopenia (~1995) Rosacea (~1986) Acne (~1956) Hearing loss (~2012) Thyroid nodule (~1996) History of pre-eclampsia 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) Acquired hypothyroidism (04/13/15) Diverticulosis of large intestine Essential hypertension History of adenomatous polyp of colon (04/05/11) Mitral valve prolapse (04/05/11) Mixed hyperlipidemia (04/05/11) Surgical History Anesthesia Fractures (~1981) History of thyroidectomy (~2002) Status post delivery (~1970) Status post delivery (~1969) Family History Father Rheumatoid arthritis Mother No problems noted. Social History household members: none Smoking Status: Never smoker Meds Home Medications and Allergies Home Medications Medication Instructions Recorded Confirmed Type hydrochlorothiazide 25 mg tablet 25 mg PO DAILY #90 tabs 05/29/23 11/27/23 Rx levothyroxine 50 mcg tablet 50 mcg PO DAILY #90 tabs 05/29/23 11/27/23 Rx rosuvastatin 10 mg tablet 10 mg PO DAILY #90 tabs 06/11/23 11/27/23 Rx calcium uvs-yom-P9-Zn-helicopter technician-caprice 1 tab PO DAILY 09/06/23 11/27/23 History Vitamin D3 + K2 1 tab PO DAILY 11/27/23 11/27/23 History multivitamin with minerals 2 tab PO DAILY 11/27/23 11/27/23 History (Hair,Skin and Nails tablet) Allergies Allergy/AdvReac Type Severity Reaction Status Date / Time prochlorperazine Allergy Mild DYSTONIA Verified 12/19/23 08:37 ciprofloxacin AdvReac Unknown JOINT PAIN Verified 12/19/23 08:37 Exam Narrative Exam Narrative: Oropharynx free of lesions Chest clear to auscultation percussion Cardiac exam reveals no S3 or murmur Assessment & Plan Assessment & Plan narrative: Known colon polyps with history of rectal bleeding. Risks, benefits, alternatives have been explained for colonoscopy. Time-Based Coding :: [TOTAL MINUTES] spent with patient and on the chart (including review of chart, obtaining history, exam, reviewing outside data, placing orders, documenting exam and treatment plan, and counseling patient) on [DATE].
--- NOTE | 2023-12-19 08:38 | P.OP.COLON_ITS ---
Operative Date/Time/Diagnoses Date of procedure: 12/19/23 Pre-op diagnosis: See indication and findings Procedure & Clinicians Study performed: Colonoscopy Indications: Rectal bleed in note history of colon polyps with need for removal Surgeon: Ade James Procedure Notes Procedure in detail: After informed consent was obtained the patient was placed in left lateral decubitus position. The video colonoscope was introduced the rectum slowly advanced cecum. Preparation was good. On slow withdrawal mucosa was carefully examined. The scope was removed. The patient tolerated procedure well. Blood loss none Complications none Sedation mac Findings 1. Extensive sigmoid and left-sided diverticulosis with less diverticula throughout the remainder of the colon. 2. 20-25 minutes was spent searching for a flat polyp. The best candidate for tattoo was seen at approximately 60 cm from the anal verge. Next to this was a small 4 mm polyp which was Jumbo biopsy removed. I made multiple passes through this area and proximally and distally but was unable to detect any additional neoplasia. Will be in touch regarding biopsies and I do not think that the patient needs follow-up colonoscopy. I am not sure what it was that was found at [facility] but without a biopsy confirmation and may not have been polyp tissue.
[2023-12-19 08:39] VITALS: BP 193/83; PULSE 80; RESP 16; TEMP 36.6; O2SAT 98
[2023-12-19 08:41] VITALS: BMI 19.3
[2023-12-19] MEDS: LACTATED RINGERS 1,000 ML 42 ML IV (08:51)
[2023-12-19 09:58] VITALS: BP 119/59; PULSE 74; RESP 19; TEMP 36.1; O2SAT 98
[2023-12-19 10:04] VITALS: BP 108/56; PULSE 69; RESP 15; O2SAT 97
[2023-12-19 10:08] VITALS: BP 109/57; PULSE 65; RESP 14; O2SAT 98
[2023-12-19 10:16] VITALS: BP 123/60; PULSE 73; RESP 16; O2SAT 98
== END 2023-12-19 10:23 | disposition home or self-care (01) ==
PROVIDERS: PCP Internal Medicine; Referring Provider Internal Medicine Gastroenterology; Visit Provider Internal Medicine Gastroenterology
PROC: 0DJD8ZZ Inspection of Lower Intestinal Tract, Via Natural or Artificial Opening Endoscopic (ICD-10-PCS; CPT 45378; principal; 2023-12-19 09:30)
DX: K62.5 Hemorrhage of anus and rectum (principal); Z86.010 Personal history of colon polyps; K57.30 Diverticulosis of large intestine without perforation or abscess without bleeding
CPT/HCPCS: 45380; 45381; J2704

== ENCOUNTER → 2024-02-13 07:58 | Outpatient (CLI) | payer MEDICARE, OTHER, SELFPAY ==
--- NOTE | 2024-02-13 | DI.MG.S_ITS ---
BILATERAL DIGITAL SCREENING MAMMOGRAM 3D/2D WITH CAD: 02/13/2024 CLINICAL: Routine screening. Comparison is made to exams dated: 01/11/2023 mammogram, 01/03/2022 mammogram, and 12/30/2020 mammogram - [facility]. The breasts are heterogeneously dense, which may obscure small masses (category c / 51-75% glandular tissue). Current study was also evaluated with a Computer Aided Detection (CAD) system. There is a biopsy clip in the left breast. No significant masses, calcifications, or other findings are seen in either breast. There has been no significant interval change. IMPRESSION: NEGATIVE There is no mammographic evidence of malignancy. A 1 year screening mammogram is recommended. Based on the Tyrer Cuzick model (a risk assessment model) the patient's lifetime risk is 1.3% and her 10 year risk is 0.0%. According to the ACR, ACS, and NCCN guidelines, an annual breast MRI exam along with mammogram is recommended if the patient's lifetime risk is 20% or greater. This exam was interpreted at Station ID: [id number]. NOTE: For mammograms, a report in lay terms will be sent to the patient. Approximately 15% of breast malignancies will not be visualized mammographically. In the management of a palpable breast mass, a negative mammogram must not discourage biopsy of a clinically suspicious lesion. Electronically Signed By: Tim crawford/tacho:02/13/2024 17:31:18 letter sent: Normal Exam ACR BI-RADS Category 1: Negative
== END ==
LOC: MAMMO 07:58
PROVIDERS: PCP Internal Medicine; Referring Provider Internal Medicine; Visit Provider Internal Medicine
DX: Z12.31 Encounter for screening mammogram for malignant neoplasm of breast (principal); R92.333 Mammographic heterogeneous density, bilateral breasts
CPT/HCPCS: 77063; 77067

== ENCOUNTER 2024-05-22 09:45 | Outpatient (RCR) | payer MEDICARE, OTHER, SELFPAY ==
--- NOTE | 2024-04-01 15:57 | PT.OIE ---
Current Diagnoses Pain in left knee (04/01/24) Stiffness of left knee, not elsewhere classified (04/01/24) Other lack of coordination (04/01/24) Weakness (04/01/24) Past Medical History (Last Updated 03/20/24 @ 12:22 by Marbin Grove MD) Acne (~1956) Acquired hypothyroidism (04/13/15) Diverticular hemorrhage Diverticulosis of large intestine Essential hypertension Hearing loss (~2012) History of adenomatous polyp of colon (04/05/11) History of pre-eclampsia Mitral valve prolapse (04/05/11) Mixed hyperlipidemia (04/05/11) Osteoarthritis of right hip Osteopenia (~1995) Rosacea (~1986) Thyroid nodule (~1996) 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) Vision disorder Past Surgical History (Last Reviewed 11/19/23 @ 10:52 by Esther Bruno DO) Anesthesia Fractures (~1981) History of thyroidectomy (~2002) Status post delivery (~1969) Status post delivery (~1970) Visit Care Team Role Provider Type Marbin Grove MD Attending Provider Physician Family Provider Primary Care Provider Referring Provider Specialty: Internal Medicine Address: [address] [place] [address], [address], [facility] Email: [email or web address] Physical Therapy Initial Evaluation PT-OP-A Visit Information Start: 03/31/24 15:47 Freq: Status: Active Protocol: Document 04/01/24 07:28 NM (Rec: 04/01/24 08:16 NM [id number]) Out-Patient Physical Therapy Visit Information Visit Information Visit Type Initial Evaluation Visit Note KX after 19 visits Visit Start Time 07:31 Visit Stop Time 08:15 Visit Number 1 Evaluation Information Evaluation Date 04/01/24 Precautions Precautions caldera's cyst PT-OP-B Current Condition Start: 03/31/24 15:47 Freq: Status: Active Protocol: Document 04/01/24 07:28 NM (Rec: 04/01/24 08:16 NM [id number]) Current Condition History of Current Condition Onset Date 2 months ago History of Current Condition Pt presents with L knee pain, occasional R knee pain. She reports that she has scoliosis , hx of breaking L leg in a skiing accident at age 40; her LLE is shorter than her RLE. Wears a heel lift. Her knee has been bothering her since January 2024 when she stepped down hard on her L knee, which tweaked it. Reports that it was improving but states that her knee is still bothering, getting worse. Yard work bothers her, especially with standing and bending over with RLE backward. No hx of falls. Pt reports difficulty with going downstairs (less pain with going upstairs) via step- to pattern, sitting too long, walking especially on hills ( [employer], [facility]), gardening/yard work. Pt has stairs in her home, 10 stairs with 1 rail. Pt is retired. Prior Treatments and Tests No xrays Treatment Goals Patient/Caregiver Goals walk up [employer] without pain Current Functional Impairments (Reported) Functional Limitations- Recreation/ gardening Hobbies PT-OP-C Subjective Start: 03/31/24 15:47 Freq: Status: Active Protocol: Document 04/01/24 07:28 NM (Rec: 04/01/24 08:16 NM [id number]) OP-PT Subjective Patient Comments Patient Comments Pt consents to participate in evaluation Patient Questionnaires Lower Extremity Functional Scale LEFS Score 46/80 OP-PT Pain Assessment Location L knee Pain Location Details caldera's cyst, medial knee> around patella Intensity 5 Scale Used Numeric (0 - 10) Description Aching,Dull,Sharp Description- Other worst- 8/10 (e.g. stairs) Frequency Intermittent Pain Duration seconds Variations/Patterns around knee Pain Aggravating Factors Activity,Exercise,Sitting, Walking,Stair Climbing,Bending Other Pain Aggravating Factors picking up objects Pain Alleviating Factors Medication Other Pain Alleviating Factors prn tylenol (1x/every other day) PT-OP-E Functional Tests Start: 03/31/24 15:47 Freq: Status: Active Protocol: Document 04/01/24 07:28 NM (Rec: 04/01/24 08:16 NM [id number]) Functional Tests 30 Second Sit to Stand Test Score 10 Comments standard chair; knee pain, fatigues at 20 sec Five Times Sit to Stand Test Score 13 Comments standard chair PT-OP-F Manual Assessment Start: 03/31/24 15:47 Freq: Status: Active Protocol: Document 04/01/24 07:28 NM (Rec: 04/01/24 08:16 NM [id number]) Manual Assessments Soft Tissue Assessment Soft Tissue Mobility Assessment caldera's cyst behind R knee, very palpable Joint Mobility Assessment Joint Mobility Assessment ext joint play present passively L knee increased bony present at L medial and lateral knee L patella is elevated and medially tilted PT-OP-G Mobility & Gait Start: 03/31/24 15:47 Freq: Status: Active Protocol: Document 04/01/24 07:28 NM (Rec: 04/01/24 15:35 NM [id number]) OP Gait Assessment Gait Gait Assistance Required: Independent Distance (Feet) 150 Assistive Devices Assistive Device None Gait Deviations General Gait Pattern Antalgic Factors Limiting Gait Function Factors Limiting Gait Function Decreased Activity Tolerance, Decreased Strength,Pain Stair Climbing Evaluation Evaluation Level of Assist On Stairs Standby Assistance Devices Stair Climbing Assistive Devices Right Railing Technique/Endurance Stair Climbing Direction Ascend and Descend Stair Climbing Technique Step Over Step Number of Steps Climbed 4 Stair Climbing Set # Repetitions (reps) 1 Comments Stair Climbing Comments Pain reported in knee; demos valgus and decreased stability while descending stairs PT-OP-J Posture/Palpation/Skin Start: 03/31/24 15:47 Freq: Status: Active Protocol: Document 04/01/24 07:28 NM (Rec: 04/01/24 15:35 NM [id number]) Posture Evaluation Position Standing Head/C-Spine Posture Forward Head L-Spine Posture Increased Lordosis Shoulder Posture (L) Rounded,(R) Rounded,(L) Elevated Pelvis Posture (L) ASIS Inferior Comments Posture Comments Scoliosis present; demos R truncal shift Palpation Assessment Location L knee Palpation Details Tenderness at L medial knee especially at joint line, pes anserine; present also around patella Palpable caldera's cyst at posteromedial knee, not tender but enlarged PT-OP-K Range of Motion Start: 03/31/24 15:47 Freq: Status: Active Protocol: Document 04/01/24 07:28 NM (Rec: 04/01/24 08:16 NM [id number]) Knee Goniometric Range of Motion Knee Right Flexion Active (degrees) 130 Extension Active (degrees) 5 Left Flexion Active (degrees) 125 Extension Active (degrees) 5 PT-OP-L Special Tests Start: 03/31/24 15:47 Freq: Status: Active Protocol: Document 04/01/24 07:28 NM (Rec: 04/01/24 15:35 NM [id number]) Special Tests Knee Special Tests Varus Test Results - Valgus Test Results - Luis Test Test Results - PT-OP-M Strength Start: 03/31/24 15:47 Freq: Status: Active Protocol: Document 04/01/24 07:28 NM (Rec: 04/01/24 08:16 NM [id number]) Hip Strength Hip Manual Muscle Testing Right Flexion (L2) 4- Good- Abduction 4- Good- Adduction 4 Good External Rotation 4 Good Internal Rotation 4 Good Left Flexion (L2) 4- Good- Abduction 4- Good- External Rotation 4- Good- Internal Rotation 4 Good Knee Strength Knee Manual Muscle Testing Right Flexion (S2) 3+ Fair+ Extension (L3) 4 Good Left Flexion (S2) 4- Good- Extension (L3) 4 Good Ankle/Foot Strength Ankle and Foot Manual Muscle Testing Right Dorsiflexion (L4) 4+ Good+ Plantarflexion (S1) 4+ Good+ Left Dorsiflexion (L4) 4+ Good+ Plantarflexion (S1) 4+ Good+ PT-OP-Q Treatments Start: 03/31/24 15:47 Freq: Status: Active Protocol: Document 04/01/24 07:28 NM (Rec: 04/01/24 08:16 NM [id number]) Therapeutic Exercises Sitting Exercises Hamstring curl Side bilateral Resistance level 1 band at ankle Reps/Minutes 15 ea Comments cues form and set up quad set Side bilateral Equipment Used towel roll Reps/Minutes 15x3 Comments cues form and set up; inc time for cueing to limit glute PT-OP-T Assessment and Plan Start: 03/31/24 15:47 Freq: Status: Active Protocol: Document 04/01/24 07:28 NM (Rec: 04/01/24 08:16 NM [id number]) Physical Therapy Assessment Rehab Potential Rehabilitation Potential Good Evaluation Complexity Number of Personal Factors/Comorbidities 3 or More Number of Body Systems Impaired 3 Clinical Presentation at Evaluation Stable Impairments Impairments Activity Tolerance,Balance, Functional Activities, Functional Mobility,Gait,Pain, Posture,ROM,Sensation,Soft Tissue Mobility,Strength, Transfers Other Concerns Age Related Concerns PMH: blood pressure, falls, hearing problems, osteopenia, thyroid disorder, vision problems, surgeries (1/2 thyroid removed, broken femur L). Medications: levothyroxis Goals Four Impairment ambulation impaired Marketing Planning Manager Goal (LTG) Pt will report that she is able to ambulate up [place] with <5/10 knee pain, if appropriate, to return to PLOF LTG Duration 10 weeks Three Impairment pain with stairs and hills Short Term Goal (STG) Pt will report that she is able to descend stairs using reciprocal pattern with or without handrail and <5/10 L knee pain in order to demonstrate improved strength and flexibility during household mobility STG Duration 7 weeks Marketing Planning Manager Goal (LTG) Pt will report that she is able to descend stairs using reciprocal pattern with or without handrail and no increase in L knee pain in order to demonstrate improved strength and flexibility during household mobility LTG Duration 10 weeks Two Impairment STS & transfers (5x STS 13 sec , 30 STS 10) Halfway Goal (LTG) Pt will be able to perform at least 12 STS in 30 from standard chair in order to demonstrate improved BLE strength and meet age-related strength/endurance goals LTG Duration 10 weeks One Impairment not performing HEP Halfway Goal (LTG) Pt will report IND at least 3x /wk in order to maximize progression with PT and transition to maintenance program upon discharge LTG Duration 10 weeks Assessment Summary Assessment Pt presents with L knee pain for 2 months after stepping off of a step. Pt has impairments in gait, stairs, ADLs/IADLs, ROM, and strength. Her L knee strength is mildly limited compared to her RLE. She has limitations in B knee extension but not flexion. Tenderness over medial knee and pes anserine; has a palpable caldera's cyst that is non-painful. Pt has no instability of L knee compared to R knee. Pt has hx of injury to L femur, in addition to scoliosis and true leg length discrepancy, which may also impact symptoms. She is still ambulating and being active but not performing a regular exercise routine beyond ambulation/hiking. Pt's symptoms are consistent with OA. She fatigues quickly, as indicated by below age-related norms for 30 sec STS. PT educated pt on exam findings and plan of care. Pt would benefit from skilled PT for progressive flexibility, strengthening, and balance training of L knee in order to improve symptom management and functional mobility. Physical Therapy Plan Frequency and Duration Frequency of Treatment 2x/Week Duration of treatment (weeks) 10 Plan of Care Start Date 04/01/24 Plan of Care End Date 06/13/24 Therapeutic Interventions Therapeutic Interventions Balance Training,Coordination Training,Gait Training,Home Exercise Program,Joint Mobilizations,Manual Therapy, Neuromuscular Re-education, Orthotic/Prosthetic Management ,Patient/Caregiver Education, Self-Care/Home Management, Sensory Integration,Soft Tissue Mobilization,Taping, Therapeutic Activities, Therapeutic Exercises Modalities Cold Pack/Ice Massage,Electric Stimulation,Hot Packs, Ultrasound Next Visit Focus/Plan Next Note Type Treatment Note Next Visit Plan Initiate stretching and strengthening Review HEP Manual: STM to L knee, joint mobilizations
--- NOTE | 2024-04-01 15:57 | PT.OPPOC ---
Physical, Occupational & Speech Therapy At [facility] Current Diagnoses Pain in left knee (04/01/24) Stiffness of left knee, not elsewhere classified (04/01/24) Other lack of coordination (04/01/24) Weakness (04/01/24) Visit Care Team Role Provider Type Marbin Grove MD Attending Provider Physician Family Provider Primary Care Provider Referring Provider Specialty: Internal Medicine Address: [address] [place] [address], [facility] [[email or web address] [address], [address] Email: [email or web address] Plan Of Care PT-OP-B Current Condition Start: 03/31/24 15:47 Freq: Status: Active Protocol: Document 04/01/24 07:28 NM (Rec: 04/01/24 08:16 NM [id number]) Current Condition History of Current Condition Onset Date 2 months ago History of Current Condition Pt presents with L knee pain, occasional R knee pain. She reports that she has scoliosis , hx of breaking L leg in a skiing accident at age 40; her LLE is shorter than her RLE. Wears a heel lift. Her knee has been bothering her since January 2024 when she stepped down hard on her L knee, which tweaked it. Reports that it was improving but states that her knee is still bothering, getting worse. Yard work bothers her, especially with standing and bending over with RLE backward. No hx of falls. Pt reports difficulty with going downstairs (less pain with going upstairs) via step- to pattern, sitting too long, walking especially on hills ( [facility], [facility]), gardening/yard work. Pt has stairs in her home, 10 stairs with 1 rail. Pt is retired. Prior Treatments and Tests No xrays Treatment Goals Patient/Caregiver Goals walk up [facility] without pain Current Functional Impairments (Reported) Functional Limitations- Recreation/ gardening Hobbies PT-OP-T Assessment and Plan Start: 03/31/24 15:47 Freq: Status: Active Protocol: Document 04/01/24 07:28 NM (Rec: 04/01/24 08:16 NM [id number]) Physical Therapy Assessment Rehab Potential Rehabilitation Potential Good Evaluation Complexity Number of Personal Factors/Comorbidities 3 or More Number of Body Systems Impaired 3 Clinical Presentation at Evaluation Stable Impairments Impairments Activity Tolerance,Balance, Functional Activities, Functional Mobility,Gait,Pain, Posture,ROM,Sensation,Soft Tissue Mobility,Strength, Transfers Other Concerns Age Related Concerns PMH: blood pressure, falls, hearing problems, osteopenia, thyroid disorder, vision problems, surgeries (1/2 thyroid removed, broken femur L). Medications: levothyroxis Goals Four Impairment ambulation impaired Sausage Cutter Goal (LTG) Pt will report that she is able to ambulate up [place] with <5/10 knee pain, if appropriate, to return to PLOF LTG Duration 10 weeks Three Impairment pain with stairs and hills Short Term Goal (STG) Pt will report that she is able to descend stairs using reciprocal pattern with or without handrail and <5/10 L knee pain in order to demonstrate improved strength and flexibility during household mobility STG Duration 7 weeks Skilled Nursing Goal (LTG) Pt will report that she is able to descend stairs using reciprocal pattern with or without handrail and no increase in L knee pain in order to demonstrate improved strength and flexibility during household mobility LTG Duration 10 weeks Two Impairment STS & transfers (5x STS 13 sec , 30 STS 10) Skilled Nursing Goal (LTG) Pt will be able to perform at least 12 STS in 30 from standard chair in order to demonstrate improved BLE strength and meet age-related strength/endurance goals LTG Duration 10 weeks One Impairment not performing HEP Skilled Nursing Goal (LTG) Pt will report IND at least 3x /wk in order to maximize progression with PT and transition to maintenance program upon discharge LTG Duration 10 weeks Assessment Summary Assessment Pt presents with L knee pain for 2 months after stepping off of a step. Pt has impairments in gait, stairs, ADLs/IADLs, ROM, and strength. Her L knee strength is mildly limited compared to her RLE. She has limitations in B knee extension but not flexion. Tenderness over medial knee and pes anserine; has a palpable caldera's cyst that is non-painful. Pt has no instability of L knee compared to R knee. Pt has hx of injury to L femur, in addition to scoliosis and true leg length discrepancy, which may also impact symptoms. She is still ambulating and being active but not performing a regular exercise routine beyond ambulation/hiking. Pt's symptoms are consistent with OA. She fatigues quickly, as indicated by below age-related norms for 30 sec STS. PT educated pt on exam findings and plan of care. Pt would benefit from skilled PT for progressive flexibility, strengthening, and balance training of L knee in order to improve symptom management and functional mobility. Physical Therapy Plan Frequency and Duration Frequency of Treatment 2x/Week Duration of treatment (weeks) 10 Plan of Care Start Date 04/01/24 Plan of Care End Date 06/13/24 Therapeutic Interventions Therapeutic Interventions Balance Training,Coordination Training,Gait Training,Home Exercise Program,Joint Mobilizations,Manual Therapy, Neuromuscular Re-education, Orthotic/Prosthetic Management ,Patient/Caregiver Education, Self-Care/Home Management, Sensory Integration,Soft Tissue Mobilization,Taping, Therapeutic Activities, Therapeutic Exercises Modalities Cold Pack/Ice Massage,Electric Stimulation,Hot Packs, Ultrasound Next Visit Focus/Plan Next Note Type Treatment Note Next Visit Plan Initiate stretching and strengthening Review HEP Manual: STM to L knee, joint mobilizations Plan of Care Dates Plan of Care Start Date 04/01/24 Plan of Care End Date 06/13/24 Electronically Signed by: Mona Funez, PT 04/01/24 1568 If you are in agreement with this Plan of Care, please return a signed and dated copy. I have reviewed this Plan of Care and certify that the skilled therapy services above are required to meet the patient?s needs. Physician Signature Date Printed Name and Credentials Clinical Instructor Signature Printed Name and Credentials
--- NOTE | 2024-04-03 10:42 | PT.OTN ---
Current Diagnoses Pain in left knee (04/03/24) Stiffness of left knee, not elsewhere classified (04/03/24) Other lack of coordination (04/03/24) Weakness (04/03/24) Physical Therapy Treatment Note PT-OP-A Visit Information Start: 03/31/24 15:47 Freq: Status: Active Protocol: Document 04/03/24 09:01 NM (Rec: 04/03/24 09:48 NM [id number]) Out-Patient Physical Therapy Visit Information Visit Information Visit Type Treatment Note Visit Note KX after 19 visits Visit Start Time 09:02 Visit Stop Time 09:45 Visit Number 2 Evaluation Information Evaluation Date 04/01/24 Precautions Precautions torres's cyst PT-OP-B Current Condition Start: 03/31/24 15:47 Freq: Status: Active Protocol: Document 04/01/24 07:28 NM (Rec: 04/01/24 08:16 NM [id number]) Current Condition History of Current Condition Onset Date 2 months ago History of Current Condition Pt presents with L knee pain, occasional R knee pain. She reports that she has scoliosis , hx of breaking L leg in a skiing accident at age 40; her LLE is shorter than her RLE. Wears a heel lift. Her knee has been bothering her since January 2024 when she stepped down hard on her L knee, which tweaked it. Reports that it was improving but states that her knee is still bothering, getting worse. Yard work bothers her, especially with standing and bending over with RLE backward. No hx of falls. Pt reports difficulty with going downstairs (less pain with going upstairs) via step- to pattern, sitting too long, walking especially on hills ( [facility], [facility]), gardening/yard work. Pt has stairs in her home, 10 stairs with 1 rail. Pt is retired. Prior Treatments and Tests No xrays Treatment Goals Patient/Caregiver Goals walk up [place] without pain Current Functional Impairments (Reported) Functional Limitations- Recreation/ gardening Hobbies PT-OP-C Subjective Start: 03/31/24 15:47 Freq: Status: Active Protocol: Document 04/03/24 09:01 NM (Rec: 04/03/24 09:48 NM [id number]) OP-PT Subjective Patient Comments Patient Comments Pt reports that she tripped this am, caught her foot, increased pain in L knee. Reports 8/10 pain, did not twist knee. Woke up with 5/10 pain. Tried HEP at home between evaluation PT-OP-E Functional Tests Start: 03/31/24 15:47 Freq: Status: Active Protocol: Document 04/01/24 07:28 NM (Rec: 04/01/24 08:16 NM [id number]) Functional Tests 30 Second Sit to Stand Test Score 10 Comments standard chair; knee pain, fatigues at 20 sec Five Times Sit to Stand Test Score 13 Comments standard chair PT-OP-F Manual Assessment Start: 03/31/24 15:47 Freq: Status: Active Protocol: Document 04/01/24 07:28 NM (Rec: 04/01/24 08:16 NM [id number]) Manual Assessments Soft Tissue Assessment Soft Tissue Mobility Assessment torres's cyst behind R knee, very palpable Joint Mobility Assessment Joint Mobility Assessment ext joint play present passively L knee increased bony present at L medial and lateral knee L patella is elevated and medially tilted PT-OP-G Mobility & Gait Start: 03/31/24 15:47 Freq: Status: Active Protocol: Document 04/01/24 07:28 NM (Rec: 04/01/24 15:35 NM [id number]) OP Gait Assessment Gait Gait Assistance Required: Independent Distance (Feet) 150 Assistive Devices Assistive Device None Gait Deviations General Gait Pattern Antalgic Factors Limiting Gait Function Factors Limiting Gait Function Decreased Activity Tolerance, Decreased Strength,Pain Stair Climbing Evaluation Evaluation Level of Assist On Stairs Standby Assistance Devices Stair Climbing Assistive Devices Right Railing Technique/Endurance Stair Climbing Direction Ascend and Descend Stair Climbing Technique Step Over Step Number of Steps Climbed 4 Stair Climbing Set # Repetitions (reps) 1 Comments Stair Climbing Comments Pain reported in knee; demos valgus and decreased stability while descending stairs PT-OP-J Posture/Palpation/Skin Start: 03/31/24 15:47 Freq: Status: Active Protocol: Document 04/01/24 07:28 NM (Rec: 04/01/24 15:35 NM [id number]) Posture Evaluation Position Standing Head/C-Spine Posture Forward Head L-Spine Posture Increased Lordosis Shoulder Posture (L) Rounded,(R) Rounded,(L) Elevated Pelvis Posture (L) ASIS Inferior Comments Posture Comments Scoliosis present; demos R truncal shift Palpation Assessment Location L knee Palpation Details Tenderness at L medial knee especially at joint line, pes anserine; present also around patella Palpable torres's cyst at posteromedial knee, not tender but enlarged PT-OP-K Range of Motion Start: 03/31/24 15:47 Freq: Status: Active Protocol: Document 04/01/24 07:28 NM (Rec: 04/01/24 08:16 NM [id number]) Knee Goniometric Range of Motion Knee Right Flexion Active (degrees) 130 Extension Active (degrees) 5 Left Flexion Active (degrees) 125 Extension Active (degrees) 5 PT-OP-L Special Tests Start: 03/31/24 15:47 Freq: Status: Active Protocol: Document 04/01/24 07:28 NM (Rec: 04/01/24 15:35 NM [id number]) Special Tests Knee Special Tests Varus Test Results - Valgus Test Results - Luis Test Test Results - PT-OP-M Strength Start: 03/31/24 15:47 Freq: Status: Active Protocol: Document 04/01/24 07:28 NM (Rec: 04/01/24 08:16 NM [id number]) Hip Strength Hip Manual Muscle Testing Right Flexion (L2) 4- Good- Abduction 4- Good- Adduction 4 Good External Rotation 4 Good Internal Rotation 4 Good Left Flexion (L2) 4- Good- Abduction 4- Good- External Rotation 4- Good- Internal Rotation 4 Good Knee Strength Knee Manual Muscle Testing Right Flexion (S2) 3+ Fair+ Extension (L3) 4 Good Left Flexion (S2) 4- Good- Extension (L3) 4 Good Ankle/Foot Strength Ankle and Foot Manual Muscle Testing Right Dorsiflexion (L4) 4+ Good+ Plantarflexion (S1) 4+ Good+ Left Dorsiflexion (L4) 4+ Good+ Plantarflexion (S1) 4+ Good+ PT-OP-Q Treatments Start: 03/31/24 15:47 Freq: Status: Active Protocol: Document 04/03/24 09:01 NM (Rec: 04/03/24 09:48 NM [id number]) Therapeutic Exercises Supine Exercises HS stretch Supine Exercise Name HEP Side bilateral Equipment Used with strap (knee ext) Reps/Minutes 60 bridge Supine Exercise Name HEP Side bilateral Resistance level 2 band at thighs Equipment Used with ppt Reps/Minutes 2x10 heel slides Supine Exercise Name HEP Side left Resistance AROM Reps/Minutes 15 with slight pause at end range Comments post manual tx; no pain Sitting Exercises quad set Sitting Exercise Name HEP review Side bilateral Equipment Used towel roll Reps/Minutes 12x3 Comments cued less glute, push into towel roll; when correct, has slight heel pop Manual Therapy Treatment Consent Patient gave verbal consent for manual Yes treatment Soft Tissue Mobilization L knee Body Location calf, HS, quad, TFL, hip flexor Mobilization Type Rolling,Sustained Pressure Intensity/Depth Moderate Body Position Hooklying Comments Monitored for pain. Torres's cyst prominent. Lacking 5 deg ext start of session, Trigger points and tenderness at hip adductors, hip flexors, medial calf. No tenderness at quad or hamstring. Joint Mobilizations L knee Joint patellar Direction inf, sup, med, lat Grade II Body Position Supine Reps/Duration 10 ea direction Comments Monitored for pain PT-OP-T Assessment and Plan Start: 03/31/24 15:47 Freq: Status: Active Protocol: Document 04/03/24 09:01 NM (Rec: 04/03/24 09:48 NM [id number]) Physical Therapy Assessment Goals Four Impairment ambulation impaired Valve Grinder Goal (LTG) Pt will report that she is able to ambulate up [place] with <5/10 knee pain, if appropriate, to return to PLOF LTG Duration 10 weeks Three Impairment pain with stairs and hills Short Term Goal (STG) Pt will report that she is able to descend stairs using reciprocal pattern with or without handrail and <5/10 L knee pain in order to demonstrate improved strength and flexibility during household mobility STG Duration 7 weeks Detention Goal (LTG) Pt will report that she is able to descend stairs using reciprocal pattern with or without handrail and no increase in L knee pain in order to demonstrate improved strength and flexibility during household mobility LTG Duration 10 weeks Two Impairment STS & transfers (5x STS 13 sec , 30 STS 10) Detention Goal (LTG) Pt will be able to perform at least 12 STS in 30 from standard chair in order to demonstrate improved BLE strength and meet age-related strength/endurance goals LTG Duration 10 weeks One Impairment not performing HEP Detention Goal (LTG) Pt will report IND at least 3x /wk in order to maximize progression with PT and transition to maintenance program upon discharge LTG Duration 10 weeks Assessment Summary Assessment Pt tolerated session well. No increase in L knee pain during session. Lacking 5 deg ext at start of session, lacking 3 deg at end of session. Initiated supine ROM and strengthening to promote better flexibility and ROM. Limited by hamstring length bilaterally, good response to stretch. PT recommended that pt have torres's cyst evaluated by claims specialist. Pt would continue to benefit from skilled PT for symptom management, strengthening, and ROM to improve functional mobility. Physical Therapy Plan Frequency and Duration Frequency of Treatment 2x/Week Duration of treatment (weeks) 10 Plan of Care Start Date 04/01/24 Plan of Care End Date 06/13/24 Therapeutic Interventions Therapeutic Interventions Balance Training,Coordination Training,Gait Training,Home Exercise Program,Joint Mobilizations,Manual Therapy, Neuromuscular Re-education, Orthotic/Prosthetic Management ,Patient/Caregiver Education, Self-Care/Home Management, Sensory Integration,Soft Tissue Mobilization,Taping, Therapeutic Activities, Therapeutic Exercises Modalities Cold Pack/Ice Massage,Electric Stimulation,Hot Packs, Ultrasound Next Visit Focus/Plan Next Note Type Treatment Note Next Visit Plan Knee ext ROM and strength: quad set, standing TKE with band or ball, progress to LAQ and SLR Global hip and knee strengthening: resisted stepping, hip 3 way, 4 step up Manual: STM to L knee, joint mobilizations as needed
--- NOTE | 2024-04-07 09:47 | PT.OTN ---
Current Diagnoses Pain in left knee (04/07/24) Stiffness of left knee, not elsewhere classified (04/07/24) Other lack of coordination (04/07/24) Weakness (04/07/24) Physical Therapy Treatment Note PT-OP-A Visit Information Start: 03/31/24 15:47 Freq: Status: Active Protocol: Document 04/07/24 09:03 NM (Rec: 04/07/24 09:47 NM [id number]) Out-Patient Physical Therapy Visit Information Visit Information Visit Type Treatment Note Visit Note KX after 19 visits Visit Start Time 09:04 Visit Stop Time 09:44 Visit Number 3 Evaluation Information Evaluation Date 04/01/24 Precautions Precautions torres's cyst PT-OP-B Current Condition Start: 03/31/24 15:47 Freq: Status: Active Protocol: Document 04/01/24 07:28 NM (Rec: 04/01/24 08:16 NM [id number]) Current Condition History of Current Condition Onset Date 2 months ago History of Current Condition Pt presents with L knee pain, occasional R knee pain. She reports that she has scoliosis , hx of breaking L leg in a skiing accident at age 40; her LLE is shorter than her RLE. Wears a heel lift. Her knee has been bothering her since January 2024 when she stepped down hard on her L knee, which tweaked it. Reports that it was improving but states that her knee is still bothering, getting worse. Yard work bothers her, especially with standing and bending over with RLE backward. No hx of falls. Pt reports difficulty with going downstairs (less pain with going upstairs) via step- to pattern, sitting too long, walking especially on hills ( [facility], [facility]), gardening/yard work. Pt has stairs in her home, 10 stairs with 1 rail. Pt is retired. Prior Treatments and Tests No xrays Treatment Goals Patient/Caregiver Goals walk up [place] without pain Current Functional Impairments (Reported) Functional Limitations- Recreation/ gardening Hobbies PT-OP-C Subjective Start: 03/31/24 15:47 Freq: Status: Active Protocol: Document 04/07/24 09:03 NM (Rec: 04/07/24 09:47 NM [id number]) OP-PT Subjective Patient Comments Patient Comments Pt reports last night was worst night due to pain, hard to fall asleep, 10/10; hard to get up to go to bathroom, unsteady due to pain. Scared that she was going to fall in the parking lot, no falls over weekend. She has been doing HEP at 7 pm, unsure what time she should HEP. She reports right now 8/10 pain in L knee. She was tired after last session PT-OP-E Functional Tests Start: 03/31/24 15:47 Freq: Status: Active Protocol: Document 04/01/24 07:28 NM (Rec: 04/01/24 08:16 NM [id number]) Functional Tests 30 Second Sit to Stand Test Score 10 Comments standard chair; knee pain, fatigues at 20 sec Five Times Sit to Stand Test Score 13 Comments standard chair PT-OP-F Manual Assessment Start: 03/31/24 15:47 Freq: Status: Active Protocol: Document 04/01/24 07:28 NM (Rec: 04/01/24 08:16 NM [id number]) Manual Assessments Soft Tissue Assessment Soft Tissue Mobility Assessment torres's cyst behind R knee, very palpable Joint Mobility Assessment Joint Mobility Assessment ext joint play present passively L knee increased bony present at L medial and lateral knee L patella is elevated and medially tilted PT-OP-G Mobility & Gait Start: 03/31/24 15:47 Freq: Status: Active Protocol: Document 04/01/24 07:28 NM (Rec: 04/01/24 15:35 NM [id number]) OP Gait Assessment Gait Gait Assistance Required: Independent Distance (Feet) 150 Assistive Devices Assistive Device None Gait Deviations General Gait Pattern Antalgic Factors Limiting Gait Function Factors Limiting Gait Function Decreased Activity Tolerance, Decreased Strength,Pain Stair Climbing Evaluation Evaluation Level of Assist On Stairs Standby Assistance Devices Stair Climbing Assistive Devices Right Railing Technique/Endurance Stair Climbing Direction Ascend and Descend Stair Climbing Technique Step Over Step Number of Steps Climbed 4 Stair Climbing Set # Repetitions (reps) 1 Comments Stair Climbing Comments Pain reported in knee; demos valgus and decreased stability while descending stairs PT-OP-J Posture/Palpation/Skin Start: 03/31/24 15:47 Freq: Status: Active Protocol: Document 04/01/24 07:28 NM (Rec: 04/01/24 15:35 NM [id number]) Posture Evaluation Position Standing Head/C-Spine Posture Forward Head L-Spine Posture Increased Lordosis Shoulder Posture (L) Rounded,(R) Rounded,(L) Elevated Pelvis Posture (L) ASIS Inferior Comments Posture Comments Scoliosis present; demos R truncal shift Palpation Assessment Location L knee Palpation Details Tenderness at L medial knee especially at joint line, pes anserine; present also around patella Palpable torres's cyst at posteromedial knee, not tender but enlarged PT-OP-K Range of Motion Start: 03/31/24 15:47 Freq: Status: Active Protocol: Document 04/01/24 07:28 NM (Rec: 04/01/24 08:16 NM [id number]) Knee Goniometric Range of Motion Knee Right Flexion Active (degrees) 130 Extension Active (degrees) 5 Left Flexion Active (degrees) 125 Extension Active (degrees) 5 PT-OP-L Special Tests Start: 03/31/24 15:47 Freq: Status: Active Protocol: Document 04/01/24 07:28 NM (Rec: 04/01/24 15:35 NM [id number]) Special Tests Knee Special Tests Varus Test Results - Valgus Test Results - Luis Test Test Results - PT-OP-M Strength Start: 03/31/24 15:47 Freq: Status: Active Protocol: Document 04/01/24 07:28 NM (Rec: 04/01/24 08:16 NM [id number]) Hip Strength Hip Manual Muscle Testing Right Flexion (L2) 4- Good- Abduction 4- Good- Adduction 4 Good External Rotation 4 Good Internal Rotation 4 Good Left Flexion (L2) 4- Good- Abduction 4- Good- External Rotation 4- Good- Internal Rotation 4 Good Knee Strength Knee Manual Muscle Testing Right Flexion (S2) 3+ Fair+ Extension (L3) 4 Good Left Flexion (S2) 4- Good- Extension (L3) 4 Good Ankle/Foot Strength Ankle and Foot Manual Muscle Testing Right Dorsiflexion (L4) 4+ Good+ Plantarflexion (S1) 4+ Good+ Left Dorsiflexion (L4) 4+ Good+ Plantarflexion (S1) 4+ Good+ PT-OP-Q Treatments Start: 03/31/24 15:47 Freq: Status: Active Protocol: Document 04/07/24 09:03 NM (Rec: 12/09/24 09:47 NM [id number]) Therapeutic Exercises Supine Exercises HS stretch Supine Exercise Name HEP review Side bilateral Equipment Used with strap (knee ext) Reps/Minutes 2x30 ea Sitting Exercises HS stretch Sitting Exercise Name with slight trunk flexion Side bilateral Reps/Minutes 10 breaths ea TKE Sitting Exercise Name into ball Side left Resistance level 2 band Equipment Used blue jordanian ball Reps/Minutes 10x3 Sit to stand Side bilateral Resistance AROM Equipment Used not hand support Reps/Minutes 10 Comments pain free; add to HEP next session quad set Sitting Exercise Name HEP review Side bilateral Equipment Used towel roll Reps/Minutes 10x3 Comments cued less glute, push into towel roll; when correct, has slight heel pop Standing Exercises TKE Standing Exercise Name HEP Side left Equipment Used level 2 band at table; B hand support Reps/Minutes 15x2 hold Comments pain free Manual Therapy Treatment Consent Patient gave verbal consent for manual Yes treatment Soft Tissue Mobilization L knee Body Location calf, HS, quad, TFL, hip flexor Mobilization Type Rolling,Sustained Pressure Intensity/Depth Moderate Body Position Hooklying Comments Monitored for pain. Torres's cyst prominent. Lacking 8 deg ext start of session, 115 deg flex start of session Joint Mobilizations L knee Joint patellar; tibiofemoral jt Direction inf, sup, med, lat; PA and AP Grade II Body Position Supine Reps/Duration 10 ea direction patellar; 2x30 ea tibfem Comments Monitored for pain PT-OP-T Assessment and Plan Start: 03/31/24 15:47 Freq: Status: Active Protocol: Document 04/07/24 09:03 NM (Rec: 04/07/24 09:47 NM [id number]) Physical Therapy Assessment Goals Four Impairment ambulation impaired Custodial Goal (LTG) Pt will report that she is able to ambulate up [place] with <5/10 knee pain, if appropriate, to return to OF LTG Duration 10 weeks Three Impairment pain with stairs and hills Short Term Goal (STG) Pt will report that she is able to descend stairs using reciprocal pattern with or without handrail and <5/10 L knee pain in order to demonstrate improved strength and flexibility during household mobility STG Duration 7 weeks Fire Suppression Captain Goal (LTG) Pt will report that she is able to descend stairs using reciprocal pattern with or without handrail and no increase in L knee pain in order to demonstrate improved strength and flexibility during household mobility LTG Duration 10 weeks Two Impairment STS & transfers (5x STS 13 sec , 30 STS 10) Custodial Goal (LTG) Pt will be able to perform at least 12 STS in 30 from standard chair in order to demonstrate improved BLE strength and meet age-related strength/endurance goals LTG Duration 10 weeks One Impairment not performing HEP Fire Suppression Captain Goal (LTG) Pt will report IND at least 3x /wk in order to maximize progression with PT and transition to maintenance program upon discharge LTG Duration 10 weeks Assessment Summary Assessment Reduced length of time for hamstring stretch to improve tolerance. Improved R knee ext to lacking 3 deg at end of session, lacking 8 deg at start of session. Initiated sit to stand and standing TKE to advance quad strength, progressing to banded TKE. Pt would continue to benefit from skilled PT for progressive L knee mobility and strengthening. Physical Therapy Plan Frequency and Duration Frequency of Treatment 2x/Week Duration of treatment (weeks) 10 Plan of Care Start Date 04/01/24 Plan of Care End Date 06/13/24 Therapeutic Interventions Therapeutic Interventions Balance Training,Coordination Training,Gait Training,Home Exercise Program,Joint Mobilizations,Manual Therapy, Neuromuscular Re-education, Orthotic/Prosthetic Management ,Patient/Caregiver Education, Self-Care/Home Management, Sensory Integration,Soft Tissue Mobilization,Taping, Therapeutic Activities, Therapeutic Exercises Modalities Cold Pack/Ice Massage,Electric Stimulation,Hot Packs, Ultrasound Next Visit Focus/Plan Next Note Type Treatment Note Next Visit Plan Seamus stretch, STS to HEP. Knee ext ROM and strength: quad set, standing TKE with band or ball, progress to LAQ and SLR Global hip and knee strengthening: resisted stepping, hip 3 way, 4 step up Manual: STM to L knee, joint mobilizations as needed
--- NOTE | 2024-04-15 16:49 | PT.OTN ---
Current Diagnoses Pain in left knee (04/15/24) Stiffness of left knee, not elsewhere classified (04/15/24) Other lack of coordination (04/15/24) Weakness (04/15/24) Physical Therapy Treatment Note PT-OP-A Visit Information Start: 03/31/24 15:47 Freq: Status: Active Protocol: Document 04/15/24 09:49 SW (Rec: 04/15/24 10:42 SW [id number]) Out-Patient Physical Therapy Visit Information Visit Information Visit Type Treatment Note Visit Note KX after 19 visits Visit Start Time 09:46 Visit Stop Time 10:25 Visit Number 4 Number of BUSINESS ENTERPRISE OFFICER Visits 1 Precautions Precautions caldera's cyst PT-OP-B Current Condition Start: 03/31/24 15:47 Freq: Status: Active Protocol: Document 04/01/24 07:28 NM (Rec: 04/01/24 08:16 NM [id number]) Current Condition History of Current Condition Onset Date 2 months ago History of Current Condition Pt presents with L knee pain, occasional R knee pain. She reports that she has scoliosis , hx of breaking L leg in a skiing accident at age 40; her LLE is shorter than her RLE. Wears a heel lift. Her knee has been bothering her since January 2024 when she stepped down hard on her L knee, which tweaked it. Reports that it was improving but states that her knee is still bothering, getting worse. Yard work bothers her, especially with standing and bending over with RLE backward. No hx of falls. Pt reports difficulty with going downstairs (less pain with going upstairs) via step- to pattern, sitting too long, walking especially on hills ( [address] [place], [facility]), gardening/yard work. Pt has stairs in her home, 10 stairs with 1 rail. Pt is retired. Prior Treatments and Tests No xrays Treatment Goals Patient/Caregiver Goals walk up [address] [place] without pain Current Functional Impairments (Reported) Functional Limitations- Recreation/ gardening Hobbies PT-OP-C Subjective Start: 03/31/24 15:47 Freq: Status: Active Protocol: Document 04/15/24 09:49 SW (Rec: 04/15/24 10:42 SW [id number]) OP-PT Subjective Patient Comments Patient Comments Pt reports able to go reciprocal stepping, in moderation, does not want to push it. PT-OP-E Functional Tests Start: 03/31/24 15:47 Freq: Status: Active Protocol: Document 04/01/24 07:28 NM (Rec: 04/01/24 08:16 NM [id number]) Functional Tests 30 Second Sit to Stand Test Score 10 Comments standard chair; knee pain, fatigues at 20 sec Five Times Sit to Stand Test Score 13 Comments standard chair PT-OP-F Manual Assessment Start: 03/31/24 15:47 Freq: Status: Active Protocol: Document 04/01/24 07:28 NM (Rec: 04/01/24 08:16 NM [id number]) Manual Assessments Soft Tissue Assessment Soft Tissue Mobility Assessment caldera's cyst behind R knee, very palpable Joint Mobility Assessment Joint Mobility Assessment ext joint play present passively L knee increased bony present at L medial and lateral knee L patella is elevated and medially tilted PT-OP-G Mobility & Gait Start: 03/31/24 15:47 Freq: Status: Active Protocol: Document 04/01/24 07:28 NM (Rec: 04/01/24 15:35 NM [id number]) OP Gait Assessment Gait Gait Assistance Required: Independent Distance (Feet) 150 Assistive Devices Assistive Device None Gait Deviations General Gait Pattern Antalgic Factors Limiting Gait Function Factors Limiting Gait Function Decreased Activity Tolerance, Decreased Strength,Pain Stair Climbing Evaluation Evaluation Level of Assist On Stairs Standby Assistance Devices Stair Climbing Assistive Devices Right Railing Technique/Endurance Stair Climbing Direction Ascend and Descend Stair Climbing Technique Step Over Step Number of Steps Climbed 4 Stair Climbing Set # Repetitions (reps) 1 Comments Stair Climbing Comments Pain reported in knee; demos valgus and decreased stability while descending stairs PT-OP-J Posture/Palpation/Skin Start: 03/31/24 15:47 Freq: Status: Active Protocol: Document 04/01/24 07:28 NM (Rec: 04/01/24 15:35 NM [id number]) Posture Evaluation Position Standing Head/C-Spine Posture Forward Head L-Spine Posture Increased Lordosis Shoulder Posture (L) Rounded,(R) Rounded,(L) Elevated Pelvis Posture (L) ASIS Inferior Comments Posture Comments Scoliosis present; demos R truncal shift Palpation Assessment Location L knee Palpation Details Tenderness at L medial knee especially at joint line, pes anserine; present also around patella Palpable caldera's cyst at posteromedial knee, not tender but enlarged PT-OP-K Range of Motion Start: 03/31/24 15:47 Freq: Status: Active Protocol: Document 04/01/24 07:28 NM (Rec: 04/01/24 08:16 NM [id number]) Knee Goniometric Range of Motion Knee Right Flexion Active (degrees) 130 Extension Active (degrees) 5 Left Flexion Active (degrees) 125 Extension Active (degrees) 5 PT-OP-L Special Tests Start: 03/31/24 15:47 Freq: Status: Active Protocol: Document 04/01/24 07:28 NM (Rec: 04/01/24 15:35 NM [id number]) Special Tests Knee Special Tests Varus Test Results - Valgus Test Results - Luis Test Test Results - PT-OP-M Strength Start: 03/31/24 15:47 Freq: Status: Active Protocol: Document 04/01/24 07:28 NM (Rec: 04/01/24 08:16 NM [id number]) Hip Strength Hip Manual Muscle Testing Right Flexion (L2) 4- Good- Abduction 4- Good- Adduction 4 Good External Rotation 4 Good Internal Rotation 4 Good Left Flexion (L2) 4- Good- Abduction 4- Good- External Rotation 4- Good- Internal Rotation 4 Good Knee Strength Knee Manual Muscle Testing Right Flexion (S2) 3+ Fair+ Extension (L3) 4 Good Left Flexion (S2) 4- Good- Extension (L3) 4 Good Ankle/Foot Strength Ankle and Foot Manual Muscle Testing Right Dorsiflexion (L4) 4+ Good+ Plantarflexion (S1) 4+ Good+ Left Dorsiflexion (L4) 4+ Good+ Plantarflexion (S1) 4+ Good+ PT-OP-Q Treatments Start: 03/31/24 15:47 Freq: Status: Active Protocol: Document 04/15/24 09:49 SW (Rec: 04/15/24 10:42 SW [id number]) Therapeutic Exercises Supine Exercises Seamus Stretch Supine Exercise Name Hip Flexor stretch- Added to HEP Side bilateral Comments cues for contralateral HS stretch Supine Exercise Name HEP review for correct execution to decrease discomfort Side bilateral Equipment Used with strap (knee ext) Reps/Minutes 2x30 ea bridge Supine Exercise Name Reviewed per pt request Side bilateral Resistance level 2 band at thighs Equipment Used with ppt Reps/Minutes 2x10 Comments cued for foot placement to dec HS cramp, cued for band setup Sitting Exercises Sit to stand Sitting Exercise Name Issued HEP Side bilateral Resistance AROM Equipment Used not hand support Reps/Minutes 10 Comments pain free; add to HEP next session Hamstring curl Sitting Exercise Name Reviewed for pt setup for carryover at home Side bilateral Resistance level 1 band at ankle Reps/Minutes 15 ea Comments cues form and set up quad set Sitting Exercise Name HEP review Side bilateral Equipment Used towel roll Reps/Minutes 10x5 Comments cued less glute, push into towel roll; when correct, has slight heel pop Standing Exercises TKE Standing Exercise Name HEP Side left Equipment Used level 2 band at table; B hand support Reps/Minutes 15x2 hold Comments pain free PT-OP-T Assessment and Plan Start: 03/31/24 15:47 Freq: Status: Active Protocol: Document 04/15/24 09:49 SW (Rec: 04/15/24 10:42 SW [id number]) Physical Therapy Assessment Goals Four Impairment ambulation impaired Mortgage Loan Officer Originator Goal (LTG) Pt will report that she is able to ambulate up [place] with <5/10 knee pain, if appropriate, to return to OF LTG Duration 10 weeks Three Impairment pain with stairs and hills Short Term Goal (STG) Pt will report that she is able to descend stairs using reciprocal pattern with or without handrail and <5/10 L knee pain in order to demonstrate improved strength and flexibility during household mobility STG Duration 7 weeks Mortgage Loan Officer Originator Goal (LTG) Pt will report that she is able to descend stairs using reciprocal pattern with or without handrail and no increase in L knee pain in order to demonstrate improved strength and flexibility during household mobility LTG Duration 10 weeks Two Impairment STS & transfers (5x STS 13 sec , 30 STS 10) Intermediate Goal (LTG) Pt will be able to perform at least 12 STS in 30 from standard chair in order to demonstrate improved BLE strength and meet age-related strength/endurance goals LTG Duration 10 weeks One Impairment not performing HEP Intermediate Goal (LTG) Pt will report IND at least 3x /wk in order to maximize progression with PT and transition to maintenance program upon discharge LTG Duration 10 weeks Assessment Summary Assessment Extended time on pt education with exercise review this session for correct execution and set up at home. Initiated Seamus thakkar for hip flexion stretch, issued HEP HO and issued HEP HO for STS initiated Last session. Plan to review seamus stretch and STS next session for carryover and pt tolerance at home. Physical Therapy Plan Frequency and Duration Frequency of Treatment 2x/Week Duration of treatment (weeks) 10 Plan of Care Start Date 04/01/24 Plan of Care End Date 06/13/24 Therapeutic Interventions Therapeutic Interventions Balance Training,Coordination Training,Gait Training,Home Exercise Program,Joint Mobilizations,Manual Therapy, Neuromuscular Re-education, Orthotic/Prosthetic Management ,Patient/Caregiver Education, Self-Care/Home Management, Sensory Integration,Soft Tissue Mobilization,Taping, Therapeutic Activities, Therapeutic Exercises Modalities Cold Pack/Ice Massage,Electric Stimulation,Hot Packs, Ultrasound Next Visit Focus/Plan Next Note Type Treatment Note Next Visit Plan Assess pt tolerance to Seamus stretch and setup at home. Knee ext ROM and strength: quad set, standing TKE with band or ball, progress to LAQ and SLR Global hip and knee strengthening: resisted stepping, hip 3 way, 4 step up Manual: STM to L knee, joint mobilizations as needed
--- NOTE | 2024-05-01 12:54 | PT.OTN ---
Current Diagnoses Pain in left knee (05/01/24) Stiffness of left knee, not elsewhere classified (05/01/24) Other lack of coordination (05/01/24) Weakness (05/01/24) Physical Therapy Treatment Note PT-OP-A Visit Information Start: 03/31/24 15:47 Freq: Status: Active Protocol: Document 05/01/24 10:43 AB (Rec: 05/01/24 12:53 AB [id number]) Out-Patient Physical Therapy Visit Information Visit Information Visit Type Treatment Note Visit Note KX after 19 visits Access Code: [email or web address] Visit Start Time 11:32 Visit Stop Time 12:22 Visit Number 5 Number of DRAFTER STRUCTURAL Visits 2 Evaluation Information Evaluation Date 04/01/24 Precautions Precautions caldera's cyst PT-OP-B Current Condition Start: 03/31/24 15:47 Freq: Status: Active Protocol: Document 04/01/24 07:28 NM (Rec: 04/01/24 08:16 NM [id number]) Current Condition History of Current Condition Onset Date 2 months ago History of Current Condition Pt presents with L knee pain, occasional R knee pain. She reports that she has scoliosis , hx of breaking L leg in a skiing accident at age 40; her LLE is shorter than her RLE. Wears a heel lift. Her knee has been bothering her since January 2024 when she stepped down hard on her L knee, which tweaked it. Reports that it was improving but states that her knee is still bothering, getting worse. Yard work bothers her, especially with standing and bending over with RLE backward. No hx of falls. Pt reports difficulty with going downstairs (less pain with going upstairs) via step- to pattern, sitting too long, walking especially on hills ( [facility], [facility]), gardening/yard work. Pt has stairs in her home, 10 stairs with 1 rail. Pt is retired. Prior Treatments and Tests No xrays Treatment Goals Patient/Caregiver Goals walk up [facility] without pain Current Functional Impairments (Reported) Functional Limitations- Recreation/ gardening Hobbies PT-OP-C Subjective Start: 03/31/24 15:47 Freq: Status: Active Protocol: Document 05/01/24 10:43 AB (Rec: 05/01/24 12:53 AB [id number]) OP-PT Subjective Patient Comments Patient Comments Patient reports she is better does not think she will need all her appointments. PT-OP-E Functional Tests Start: 03/31/24 15:47 Freq: Status: Active Protocol: Document 04/01/24 07:28 NM (Rec: 04/01/24 08:16 NM [id number]) Functional Tests 30 Second Sit to Stand Test Score 10 Comments standard chair; knee pain, fatigues at 20 sec Five Times Sit to Stand Test Score 13 Comments standard chair PT-OP-F Manual Assessment Start: 03/31/24 15:47 Freq: Status: Active Protocol: Document 04/01/24 07:28 NM (Rec: 04/01/24 08:16 NM [id number]) Manual Assessments Soft Tissue Assessment Soft Tissue Mobility Assessment caldera's cyst behind R knee, very palpable Joint Mobility Assessment Joint Mobility Assessment ext joint play present passively L knee increased bony present at L medial and lateral knee L patella is elevated and medially tilted PT-OP-G Mobility & Gait Start: 03/31/24 15:47 Freq: Status: Active Protocol: Document 04/01/24 07:28 NM (Rec: 04/01/24 15:35 NM [id number]) OP Gait Assessment Gait Gait Assistance Required: Independent Distance (Feet) 150 Assistive Devices Assistive Device None Gait Deviations General Gait Pattern Antalgic Factors Limiting Gait Function Factors Limiting Gait Function Decreased Activity Tolerance, Decreased Strength,Pain Stair Climbing Evaluation Evaluation Level of Assist On Stairs Standby Assistance Devices Stair Climbing Assistive Devices Right Railing Technique/Endurance Stair Climbing Direction Ascend and Descend Stair Climbing Technique Step Over Step Number of Steps Climbed 4 Stair Climbing Set # Repetitions (reps) 1 Comments Stair Climbing Comments Pain reported in knee; demos valgus and decreased stability while descending stairs PT-OP-J Posture/Palpation/Skin Start: 03/31/24 15:47 Freq: Status: Active Protocol: Document 04/01/24 07:28 NM (Rec: 04/01/24 15:35 NM [id number]) Posture Evaluation Position Standing Head/C-Spine Posture Forward Head L-Spine Posture Increased Lordosis Shoulder Posture (L) Rounded,(R) Rounded,(L) Elevated Pelvis Posture (L) ASIS Inferior Comments Posture Comments Scoliosis present; demos R truncal shift Palpation Assessment Location L knee Palpation Details Tenderness at L medial knee especially at joint line, pes anserine; present also around patella Palpable caldera's cyst at posteromedial knee, not tender but enlarged PT-OP-K Range of Motion Start: 03/31/24 15:47 Freq: Status: Active Protocol: Document 04/01/24 07:28 NM (Rec: 04/01/24 08:16 NM [id number]) Knee Goniometric Range of Motion Knee Right Flexion Active (degrees) 130 Extension Active (degrees) 5 Left Flexion Active (degrees) 125 Extension Active (degrees) 5 PT-OP-L Special Tests Start: 03/31/24 15:47 Freq: Status: Active Protocol: Document 04/01/24 07:28 NM (Rec: 04/01/24 15:35 NM [id number]) Special Tests Knee Special Tests Varus Test Results - Valgus Test Results - Luis Test Test Results - PT-OP-M Strength Start: 03/31/24 15:47 Freq: Status: Active Protocol: Document 04/01/24 07:28 NM (Rec: 04/01/24 08:16 NM [id number]) Hip Strength Hip Manual Muscle Testing Right Flexion (L2) 4- Good- Abduction 4- Good- Adduction 4 Good External Rotation 4 Good Internal Rotation 4 Good Left Flexion (L2) 4- Good- Abduction 4- Good- External Rotation 4- Good- Internal Rotation 4 Good Knee Strength Knee Manual Muscle Testing Right Flexion (S2) 3+ Fair+ Extension (L3) 4 Good Left Flexion (S2) 4- Good- Extension (L3) 4 Good Ankle/Foot Strength Ankle and Foot Manual Muscle Testing Right Dorsiflexion (L4) 4+ Good+ Plantarflexion (S1) 4+ Good+ Left Dorsiflexion (L4) 4+ Good+ Plantarflexion (S1) 4+ Good+ PT-OP-Q Treatments Start: 03/31/24 15:47 Freq: Status: Active Protocol: Document 05/01/24 10:43 AB (Rec: 05/01/24 12:53 AB [id number]) Therapeutic Exercises Supine Exercises SLR Supine Exercise Name HEP Side bilateral Reps/Minutes X10 each LE Comments Verbal cues Seamus Stretch Supine Exercise Name Hip Flexor stretch- Added to HEP Side bilateral Reps/Minutes 60 sec Comments Verbal cues for X 10 knee flex AROM HS stretch Supine Exercise Name HEP review for correct execution to decrease discomfort Side bilateral Equipment Used with strap (knee ext) Reps/Minutes x30 ea Comments Pt ed to perform prior to quad strengthening ex Standing Exercises hip extension Standing Exercise Name upper body resting on mat at counter height ( with pillows) Side bilateral Resistance HEP Reps/Minutes X15 each Comments Verbal cues for avoiding ext lumbar spine TKE Standing Exercise Name HEP Side bilateral Equipment Used level 2 band at table; B hand support Reps/Minutes 15x Comments pain free Manual Therapy Treatment Consent Patient gave verbal consent for manual Yes treatment Soft Tissue Mobilization L knee Body Location calf, HS, quad, TFL, hip flexor Mobilization Type Rolling,Sustained Pressure Intensity/Depth Moderate Body Position Hooklying Comments lacking 5 deg ext to 130 deg flexions tart of session. PT-OP-T Assessment and Plan Start: 03/31/24 15:47 Freq: Status: Active Protocol: Document 05/01/24 10:43 AB (Rec: 05/01/24 12:53 AB [id number]) Physical Therapy Assessment Goals Four Impairment ambulation impaired Senior Quality Engineer Goal (LTG) Pt will report that she is able to ambulate up [place] with <5/10 knee pain, if appropriate, to return to OF LTG Duration 10 weeks Three Impairment pain with stairs and hills Short Term Goal (STG) Pt will report that she is able to descend stairs using reciprocal pattern with or without handrail and <5/10 L knee pain in order to demonstrate improved strength and flexibility during household mobility STG Duration 7 weeks Senior Quality Engineer Goal (LTG) Pt will report that she is able to descend stairs using reciprocal pattern with or without handrail and no increase in L knee pain in order to demonstrate improved strength and flexibility during household mobility 05/01/24 Patient reports able to descend stairs with a reciprocal pattern without pain using rails. LTG Duration 10 weeks Two Impairment STS & transfers (5x STS 13 sec , 30 STS 10) Senior Quality Engineer Goal (LTG) Pt will be able to perform at least 12 STS in 30 from standard chair in order to demonstrate improved BLE strength and meet age-related strength/endurance goals LTG Duration 10 weeks One Impairment not performing HEP Halfway Goal (LTG) Pt will report IND at least 3x /wk in order to maximize progression with PT and transition to maintenance program upon discharge LTG Duration 10 weeks Assessment Summary Assessment Unable to feel sensation of stretch during seated and standing hip flexor stretch, reported feeling a stretch with standing hip extension. Physical Therapy Plan Frequency and Duration Frequency of Treatment 2x/Week Duration of treatment (weeks) 10 Plan of Care Start Date 04/01/24 Plan of Care End Date 06/13/24 Next Visit Focus/Plan Next Note Type Treatment Note Next Visit Plan Seamus stretch in clinic only, progress to LAQ and SLR Global hip and knee strengthening: resisted stepping, hip 3 way, 4 step up Manual: STM to L knee, joint mobilizations as needed
--- NOTE | 2024-05-06 16:40 | PT.OTN ---
Current Diagnoses Pain in left knee (05/06/24) Stiffness of left knee, not elsewhere classified (05/06/24) Other lack of coordination (05/06/24) Weakness (05/06/24) Physical Therapy Treatment Note PT-OP-A Visit Information Start: 03/31/24 15:47 Freq: Status: Active Protocol: Document 05/06/24 08:56 AB (Rec: 05/06/24 10:43 AB [id number]) Out-Patient Physical Therapy Visit Information Visit Information Visit Type Treatment Note Visit Note KX after 19 visits Access Code: [email or web address] Visit Start Time 09:50 Visit Stop Time 10:33 Visit Number 6 Number of MELT SUPERVISOR Visits 3 Evaluation Information Evaluation Date 04/01/24 Precautions Precautions caldera's cyst PT-OP-B Current Condition Start: 03/31/24 15:47 Freq: Status: Active Protocol: Document 04/01/24 07:28 NM (Rec: 04/01/24 08:16 NM [id number]) Current Condition History of Current Condition Onset Date 2 months ago History of Current Condition Pt presents with L knee pain, occasional R knee pain. She reports that she has scoliosis , hx of breaking L leg in a skiing accident at age 40; her LLE is shorter than her RLE. Wears a heel lift. Her knee has been bothering her since January 2024 when she stepped down hard on her L knee, which tweaked it. Reports that it was improving but states that her knee is still bothering, getting worse. Yard work bothers her, especially with standing and bending over with RLE backward. No hx of falls. Pt reports difficulty with going downstairs (less pain with going upstairs) via step- to pattern, sitting too long, walking especially on hills ( [facility], [facility]), gardening/yard work. Pt has stairs in her home, 10 stairs with 1 rail. Pt is retired. Prior Treatments and Tests No xrays Treatment Goals Patient/Caregiver Goals walk up [facility] without pain Current Functional Impairments (Reported) Functional Limitations- Recreation/ gardening Hobbies PT-OP-C Subjective Start: 03/31/24 15:47 Freq: Status: Active Protocol: Document 05/06/24 08:56 AB (Rec: 05/06/24 10:43 AB [id number]) OP-PT Subjective Patient Comments Patient Comments Patient reports the knee is good, still feels a little bit of pain here or there. Patient reports pain occasionally left and right knee. Lauren reports pain with palpation adductor right LE distally. Lauren reports she has been walking more. Lauren into session with 6 lb vest given to her by family for posture, reports having worn 10 min with no pain post. Lacking 6 deg ext to 134 deg flexion AROM left knee. PT-OP-E Functional Tests Start: 03/31/24 15:47 Freq: Status: Active Protocol: Document 04/01/24 07:28 NM (Rec: 04/01/24 08:16 NM [id number]) Functional Tests 30 Second Sit to Stand Test Score 10 Comments standard chair; knee pain, fatigues at 20 sec Five Times Sit to Stand Test Score 13 Comments standard chair PT-OP-F Manual Assessment Start: 03/31/24 15:47 Freq: Status: Active Protocol: Document 04/01/24 07:28 NM (Rec: 04/01/24 08:16 NM [id number]) Manual Assessments Soft Tissue Assessment Soft Tissue Mobility Assessment caldera's cyst behind R knee, very palpable Joint Mobility Assessment Joint Mobility Assessment ext joint play present passively L knee increased bony present at L medial and lateral knee L patella is elevated and medially tilted PT-OP-G Mobility & Gait Start: 03/31/24 15:47 Freq: Status: Active Protocol: Document 04/01/24 07:28 NM (Rec: 04/01/24 15:35 NM [id number]) OP Gait Assessment Gait Gait Assistance Required: Independent Distance (Feet) 150 Assistive Devices Assistive Device None Gait Deviations General Gait Pattern Antalgic Factors Limiting Gait Function Factors Limiting Gait Function Decreased Activity Tolerance, Decreased Strength,Pain Stair Climbing Evaluation Evaluation Level of Assist On Stairs Standby Assistance Devices Stair Climbing Assistive Devices Right Railing Technique/Endurance Stair Climbing Direction Ascend and Descend Stair Climbing Technique Step Over Step Number of Steps Climbed 4 Stair Climbing Set # Repetitions (reps) 1 Comments Stair Climbing Comments Pain reported in knee; demos valgus and decreased stability while descending stairs PT-OP-J Posture/Palpation/Skin Start: 03/31/24 15:47 Freq: Status: Active Protocol: Document 04/01/24 07:28 NM (Rec: 04/01/24 15:35 NM [id number]) Posture Evaluation Position Standing Head/C-Spine Posture Forward Head L-Spine Posture Increased Lordosis Shoulder Posture (L) Rounded,(R) Rounded,(L) Elevated Pelvis Posture (L) ASIS Inferior Comments Posture Comments Scoliosis present; demos R truncal shift Palpation Assessment Location L knee Palpation Details Tenderness at L medial knee especially at joint line, pes anserine; present also around patella Palpable caldera's cyst at posteromedial knee, not tender but enlarged PT-OP-K Range of Motion Start: 03/31/24 15:47 Freq: Status: Active Protocol: Document 04/01/24 07:28 NM (Rec: 04/01/24 08:16 NM [id number]) Knee Goniometric Range of Motion Knee Right Flexion Active (degrees) 130 Extension Active (degrees) 5 Left Flexion Active (degrees) 125 Extension Active (degrees) 5 PT-OP-L Special Tests Start: 03/31/24 15:47 Freq: Status: Active Protocol: Document 04/01/24 07:28 NM (Rec: 04/01/24 15:35 NM [id number]) Special Tests Knee Special Tests Varus Test Results - Valgus Test Results - Luis Test Test Results - PT-OP-M Strength Start: 03/31/24 15:47 Freq: Status: Active Protocol: Document 04/01/24 07:28 NM (Rec: 04/01/24 08:16 NM [id number]) Hip Strength Hip Manual Muscle Testing Right Flexion (L2) 4- Good- Abduction 4- Good- Adduction 4 Good External Rotation 4 Good Internal Rotation 4 Good Left Flexion (L2) 4- Good- Abduction 4- Good- External Rotation 4- Good- Internal Rotation 4 Good Knee Strength Knee Manual Muscle Testing Right Flexion (S2) 3+ Fair+ Extension (L3) 4 Good Left Flexion (S2) 4- Good- Extension (L3) 4 Good Ankle/Foot Strength Ankle and Foot Manual Muscle Testing Right Dorsiflexion (L4) 4+ Good+ Plantarflexion (S1) 4+ Good+ Left Dorsiflexion (L4) 4+ Good+ Plantarflexion (S1) 4+ Good+ PT-OP-Q Treatments Start: 03/31/24 15:47 Freq: Status: Active Protocol: Document 05/06/24 08:56 AB (Rec: 05/06/24 10:43 AB [id number]) Therapeutic Exercises Supine Exercises SLR Supine Exercise Name HEP Side bilateral Resistance 1 lb cuff weight Reps/Minutes X10 each LE Comments Verbal cues, Pt ed OK to trial 1lb weight at home if no increased pain Seamus Stretch Supine Exercise Name Hip Flexor stretch- Added to HEP Side bilateral Reps/Minutes 60 sec Comments Verbal cues for X 10 knee flex AROM HS stretch Supine Exercise Name HEP review for correct execution to decrease discomfort Side bilateral Equipment Used with strap (knee ext) Reps/Minutes x60 ea Comments Pt ed to perform prior to quad strengthening ex Sitting Exercises long arc quad Side bilateral Resistance 1 lb cuff weight Reps/Minutes X10 each LE Comments verbal cues to fully extend knee Sit to stand Sitting Exercise Name Issued HEP ( from a 20 inch seat height) Side bilateral Resistance Patient's 6 lb vest for posture in place Equipment Used not hand support Reps/Minutes 10 X3 Comments pain free; Patient ed OK to try vest at home if no increased pain post toda Manual Therapy Treatment Consent Patient gave verbal consent for manual Yes treatment Soft Tissue Mobilization L knee Body Location calf, HS, quad,add , hip flexor Mobilization Type Rolling,Sustained Pressure Intensity/Depth Moderate Body Position Hooklying Joint Mobilizations L knee Joint patellar; tibiofemoral jt Direction inf, sup, med, lat; PA and AP Grade II Body Position Supine Reps/Duration 10 ea direction patellar; 2x30 ea tibfem Comments Monitored for pain PT-OP-R Modalities Start: 03/31/24 15:47 Freq: Status: Active Protocol: Document 05/06/24 16:30 AB (Rec: 05/06/24 16:31 AB [id number]) Hot Pack/Cold Pack Treatment left knee Patient Position Hooklying Comments 10 min PT-OP-T Assessment and Plan Start: 03/31/24 15:47 Freq: Status: Active Protocol: Document 05/06/24 08:56 AB (Rec: 05/06/24 10:43 AB [id number]) Physical Therapy Assessment Goals Four Impairment ambulation impaired Wind Turbine Service Technician Goal (LTG) Pt will report that she is able to ambulate up [place] with <5/10 knee pain, if appropriate, to return to [facility] LTG Duration 10 weeks Three Impairment pain with stairs and hills Short Term Goal (STG) Pt will report that she is able to descend stairs using reciprocal pattern with or without handrail and <5/10 L knee pain in order to demonstrate improved strength and flexibility during household mobility STG Duration 7 weeks Wind Turbine Service Technician Goal (LTG) Pt will report that she is able to descend stairs using reciprocal pattern with or without handrail and no increase in L knee pain in order to demonstrate improved strength and flexibility during household mobility 05/01/24 Patient reports able to descend stairs with a reciprocal pattern without pain using rails. LTG Duration 10 weeks Two Impairment STS & transfers (5x STS 13 sec , 30 STS 10) Skilled Nursing Goal (LTG) Pt will be able to perform at least 12 STS in 30 from standard chair in order to demonstrate improved BLE strength and meet age-related strength/endurance goals LTG Duration 10 weeks One Impairment not performing HEP Wind Turbine Service Technician Goal (LTG) Pt will report IND at least 3x /wk in order to maximize progression with PT and transition to maintenance program upon discharge LTG Duration 10 weeks Assessment Summary Assessment Lauren reports having no pain end of session. Good da to sit to stand loaded with her posture vest from home, but even without vest unable to rise from 18 inch seat height without UE use. Physical Therapy Plan Frequency and Duration Frequency of Treatment 2x/Week Duration of treatment (weeks) 10 Plan of Care Start Date 04/01/24 Plan of Care End Date 06/13/24 Next Visit Focus/Plan Next Note Type Treatment Note Next Visit Plan Seamus stretch in clinic only, progress to2 lb cuff weights LAQ and SLR Global hip and knee strengthening: resisted stepping, hip 3 way, 4 step up Manual: STM to L knee, joint mobilizations as needed
--- NOTE | 2024-05-13 10:50 | PT.OTN ---
Current Diagnoses Pain in left knee (05/13/24) Stiffness of left knee, not elsewhere classified (05/13/24) Other lack of coordination (05/13/24) Weakness (05/13/24) Physical Therapy Treatment Note PT-OP-A Visit Information Start: 03/31/24 15:47 Freq: Status: Active Protocol: Document 05/13/24 09:48 NM (Rec: 05/13/24 10:50 NM [id number]) Out-Patient Physical Therapy Visit Information Visit Information Visit Type Progress Note Visit Note KX after 19 visits Access Code: [email or web address] Visit Start Time 09:49 Visit Stop Time 10:34 Visit Number 7 Number of BITUMASTIC APPLIER Visits 0 Evaluation Information Evaluation Date 04/01/24 Precautions Precautions caldera's cyst PT-OP-B Current Condition Start: 03/31/24 15:47 Freq: Status: Active Protocol: Document 04/01/24 07:28 NM (Rec: 04/01/24 08:16 NM [id number]) Current Condition History of Current Condition Onset Date 2 months ago History of Current Condition Pt presents with L knee pain, occasional R knee pain. She reports that she has scoliosis , hx of breaking L leg in a skiing accident at age 40; her LLE is shorter than her RLE. Wears a heel lift. Her knee has been bothering her since January 2024 when she stepped down hard on her L knee, which tweaked it. Reports that it was improving but states that her knee is still bothering, getting worse. Yard work bothers her, especially with standing and bending over with RLE backward. No hx of falls. Pt reports difficulty with going downstairs (less pain with going upstairs) via step- to pattern, sitting too long, walking especially on hills ( [facility], [facility]), gardening/yard work. Pt has stairs in her home, 10 stairs with 1 rail. Pt is retired. Prior Treatments and Tests No xrays Treatment Goals Patient/Caregiver Goals walk up [facility] without pain Current Functional Impairments (Reported) Functional Limitations- Recreation/ gardening Hobbies PT-OP-C Subjective Start: 03/31/24 15:47 Freq: Status: Active Protocol: Document 05/13/24 09:48 NM (Rec: 05/13/24 10:50 NM [id number]) OP-PT Subjective Patient Comments Patient Comments Pt reports that her knee rehab is still flex sosa. She reports less pain with stairs. Pt still has a little medial knee pain near joint and pes anserine, reports only tender to touch but does not feel during exercises. Brought weight vest 6# but has not been using at home except during ambulation. Has been ambulating at [facility], [facility] of [facility] PT-OP-E Functional Tests Start: 03/31/24 15:47 Freq: Status: Active Protocol: Document 04/01/24 07:28 NM (Rec: 04/01/24 08:16 NM [id number]) Functional Tests 30 Second Sit to Stand Test Score 10 Comments standard chair; knee pain, fatigues at 20 sec Five Times Sit to Stand Test Score 13 Comments standard chair PT-OP-F Manual Assessment Start: 03/31/24 15:47 Freq: Status: Active Protocol: Document 04/01/24 07:28 NM (Rec: 04/01/24 08:16 NM [id number]) Manual Assessments Soft Tissue Assessment Soft Tissue Mobility Assessment caldera's cyst behind R knee, very palpable Joint Mobility Assessment Joint Mobility Assessment ext joint play present passively L knee increased bony present at L medial and lateral knee L patella is elevated and medially tilted PT-OP-G Mobility & Gait Start: 03/31/24 15:47 Freq: Status: Active Protocol: Document 04/01/24 07:28 NM (Rec: 04/01/24 15:35 NM [id number]) OP Gait Assessment Gait Gait Assistance Required: Independent Distance (Feet) 150 Assistive Devices Assistive Device None Gait Deviations General Gait Pattern Antalgic Factors Limiting Gait Function Factors Limiting Gait Function Decreased Activity Tolerance, Decreased Strength,Pain Stair Climbing Evaluation Evaluation Level of Assist On Stairs Standby Assistance Devices Stair Climbing Assistive Devices Right Railing Technique/Endurance Stair Climbing Direction Ascend and Descend Stair Climbing Technique Step Over Step Number of Steps Climbed 4 Stair Climbing Set # Repetitions (reps) 1 Comments Stair Climbing Comments Pain reported in knee; demos valgus and decreased stability while descending stairs PT-OP-J Posture/Palpation/Skin Start: 03/31/24 15:47 Freq: Status: Active Protocol: Document 04/01/24 07:28 NM (Rec: 04/01/24 15:35 NM [id number]) Posture Evaluation Position Standing Head/C-Spine Posture Forward Head L-Spine Posture Increased Lordosis Shoulder Posture (L) Rounded,(R) Rounded,(L) Elevated Pelvis Posture (L) ASIS Inferior Comments Posture Comments Scoliosis present; demos R truncal shift Palpation Assessment Location L knee Palpation Details Tenderness at L medial knee especially at joint line, pes anserine; present also around patella Palpable caldera's cyst at posteromedial knee, not tender but enlarged PT-OP-K Range of Motion Start: 03/31/24 15:47 Freq: Status: Active Protocol: Document 05/13/24 09:48 NM (Rec: 05/13/24 10:50 NM [id number]) Knee Goniometric Range of Motion Knee Right Flexion Active (degrees) 130 Extension Active (degrees) 5 Left Flexion Active (degrees) 130 Extension Active (degrees) 0 PT-OP-L Special Tests Start: 03/31/24 15:47 Freq: Status: Active Protocol: Document 04/01/24 07:28 NM (Rec: 04/01/24 15:35 NM [id number]) Special Tests Knee Special Tests Varus Test Results - Valgus Test Results - Luis Test Test Results - PT-OP-M Strength Start: 03/31/24 15:47 Freq: Status: Active Protocol: Document 05/13/24 09:48 NM (Rec: 05/13/24 10:50 NM [id number]) Knee Strength Knee Manual Muscle Testing Right Flexion (S2) 4- Good- Extension (L3) 4+ Good+ Left Flexion (S2) 4- Good- Extension (L3) 4 Good PT-OP-Q Treatments Start: 03/31/24 15:47 Freq: Status: Active Protocol: Document 05/13/24 09:48 NM (Rec: 05/13/24 10:50 NM [id number]) Therapeutic Exercises Supine Exercises Seamus Stretch Supine Exercise Name Hip Flexor stretch- HEP review Side bilateral Reps/Minutes 60 sec Sitting Exercises long arc quad Sitting Exercise Name banded version added to HEP Side bilateral Resistance 2# cuff wt, 10 w/ level 2 band at ankles Reps/Minutes 10 ea w/ cuff, 10 w/ band Comments full TKE HS stretch Sitting Exercise Name with slight trunk flexion Side bilateral Reps/Minutes 60 ea Sit to stand Sitting Exercise Name 1. std chair, 2. 5x STS Side bilateral Resistance level 2 teal band at thighs Equipment Used 18 table Reps/Minutes 1. 2x10, 2. 14 Comments better form Hamstring curl Side bilateral Resistance level 2 band Reps/Minutes 2x10 Comments cues form and set up Manual Therapy Treatment Consent Patient gave verbal consent for manual Yes treatment Soft Tissue Mobilization L knee Body Location calf, HS, quad, add, pes anserine, hip flexor Mobilization Type Rolling,Sustained Pressure Intensity/Depth Moderate Body Position Hooklying Comments Tenderness at TFL/ITB today. Monitored for pain, less tenderness at medial knee with soft tissue mobilization PT-OP-R Modalities Start: 03/31/24 15:47 Freq: Status: Active Protocol: Document 05/06/24 16:30 AB (Rec: 05/06/24 16:31 AB [id number]) Hot Pack/Cold Pack Treatment left knee Patient Position Hooklying Comments 10 min PT-OP-T Assessment and Plan Start: 03/31/24 15:47 Freq: Status: Active Protocol: Document 05/13/24 09:48 NM (Rec: 05/13/24 10:50 NM [id number]) Physical Therapy Assessment Goals Four Impairment ambulation impaired Custodial Goal (LTG) Pt will report that she is able to ambulate up [place] with <5/10 knee pain, if appropriate, to return to PLOF 05/13/24: pt reports 3/10 pain in knee when ambulating up [place] LTG Duration 10 weeks PROGRESSING, MET Three Impairment pain with stairs and hills Short Term Goal (STG) Pt will report that she is able to descend stairs using reciprocal pattern with or without handrail and <5/10 L knee pain in order to demonstrate improved strength and flexibility during household mobility STG Duration 7 weeks Custodial Goal (LTG) Pt will report that she is able to descend stairs using reciprocal pattern with or without handrail and no increase in L knee pain in order to demonstrate improved strength and flexibility during household mobility 05/01/24 Patient reports able to descend stairs with a reciprocal pattern without pain using rails. 05/13/24: 8 stairs w/ handrail on descent using reciprocal, no pain in knees LTG Duration 10 weeks MET 05/13/24 Two Impairment STS & transfers (5x STS 13 sec , 30 STS 10) Custodial Goal (LTG) Pt will be able to perform at least 12 STS in 30 from standard chair in order to demonstrate improved BLE strength and meet age-related strength/endurance goals 05/13/24: 14 from 18 chair LTG Duration 10 weeks PROGRESSING 05/13/24 One Impairment not performing HEP Box Cutter Goal (LTG) Pt will report IND at least 3x /wk in order to maximize progression with PT and transition to maintenance program upon discharge 05/11/24: compliant with HEP daily LTG Duration 10 weeks MET Progress Towards Goals Progress Towards Goals Progressing Toward Goals,Goals Met Assessment Summary Assessment Pt tolerated progressions to therapeutic exercise well. Progressed LAQ and hamstring curl, in addition to STS. Pt has improved form with STS from lower surface height but did not decrease time since initial evaluation. No pain in L knee during stairs, able to demo reciprocal gait. Still demos poor eccentric control with stairs, partially due to poor balance. Pt would continue to benefit from skilled PT for continued quad/ glute strength in addition to balance training in order to improve pt stability during recreational activities and functional mobility. Physical Therapy Plan Frequency and Duration Frequency of Treatment 2x/Week Duration of treatment (weeks) 10 Plan of Care Start Date 04/01/24 Plan of Care End Date 06/13/24 Therapeutic Interventions Therapeutic Interventions Balance Training,Coordination Training,Gait Training,Home Exercise Program,Joint Mobilizations,Manual Therapy, Neuromuscular Re-education, Orthotic/Prosthetic Management ,Patient/Caregiver Education, Self-Care/Home Management, Sensory Integration,Soft Tissue Mobilization,Taping, Therapeutic Activities, Therapeutic Exercises Modalities Cold Pack/Ice Massage,Electric Stimulation,Hot Packs, Ultrasound Next Visit Focus/Plan Next Note Type Treatment Note Next Visit Plan Trial and add to HEP hip flexor stretch. Trial side steps vs standing hip abduction with band. Trial adding band to hip ext in standing. progress STS, 2# ankle weights for LAQ/SLR. Add step up 4-6 depending on tolerance with emphasis on control. Manual: STM to L knee, joint mobilizations as needed
--- NOTE | 2024-05-15 10:57 | PT.OTN ---
Current Diagnoses Pain in left knee (05/15/24) Stiffness of left knee, not elsewhere classified (05/15/24) Other lack of coordination (05/15/24) Weakness (05/15/24) Physical Therapy Treatment Note PT-OP-A Visit Information Start: 03/31/24 15:47 Freq: Status: Active Protocol: Document 05/15/24 08:10 AB (Rec: 05/15/24 10:57 AB [id number]) Out-Patient Physical Therapy Visit Information Visit Information Visit Type Treatment Note Visit Note KX after 19 visits Access Code: [email or web address] Visit Start Time 09:50 Visit Stop Time 10:36 Visit Number 8 Number of WINDING DEPARTMENT SUPERVISOR Visits 1 Evaluation Information Evaluation Date 04/01/24 Precautions Precautions caldera's cyst PT-OP-B Current Condition Start: 03/31/24 15:47 Freq: Status: Active Protocol: Document 04/01/24 07:28 NM (Rec: 04/01/24 08:16 NM [id number]) Current Condition History of Current Condition Onset Date 2 months ago History of Current Condition Pt presents with L knee pain, occasional R knee pain. She reports that she has scoliosis , hx of breaking L leg in a skiing accident at age 40; her LLE is shorter than her RLE. Wears a heel lift. Her knee has been bothering her since January 2024 when she stepped down hard on her L knee, which tweaked it. Reports that it was improving but states that her knee is still bothering, getting worse. Yard work bothers her, especially with standing and bending over with RLE backward. No hx of falls. Pt reports difficulty with going downstairs (less pain with going upstairs) via step- to pattern, sitting too long, walking especially on hills ( [facility], [facility]), gardening/yard work. Pt has stairs in her home, 10 stairs with 1 rail. Pt is retired. Prior Treatments and Tests No xrays Treatment Goals Patient/Caregiver Goals walk up [facility] without pain Current Functional Impairments (Reported) Functional Limitations- Recreation/ gardening Hobbies PT-OP-C Subjective Start: 03/31/24 15:47 Freq: Status: Active Protocol: Document 05/15/24 08:10 AB (Rec: 05/15/24 10:57 AB [id number]) OP-PT Subjective Patient Comments Patient Comments Patient reports she is getting better, the ice helped. Patient rates pain 3-4/10 start of session, but comments she can go up and down better , and the bands are getting easy. Patient comments next session may be her last session. Lacking 7 deg ext to 134 deg flexion AROM left knee PT-OP-E Functional Tests Start: 03/31/24 15:47 Freq: Status: Active Protocol: Document 04/01/24 07:28 NM (Rec: 04/01/24 08:16 NM [id number]) Functional Tests 30 Second Sit to Stand Test Score 10 Comments standard chair; knee pain, fatigues at 20 sec Five Times Sit to Stand Test Score 13 Comments standard chair PT-OP-F Manual Assessment Start: 03/31/24 15:47 Freq: Status: Active Protocol: Document 04/01/24 07:28 NM (Rec: 04/01/24 08:16 NM [id number]) Manual Assessments Soft Tissue Assessment Soft Tissue Mobility Assessment caldera's cyst behind R knee, very palpable Joint Mobility Assessment Joint Mobility Assessment ext joint play present passively L knee increased bony present at L medial and lateral knee L patella is elevated and medially tilted PT-OP-G Mobility & Gait Start: 03/31/24 15:47 Freq: Status: Active Protocol: Document 04/01/24 07:28 NM (Rec: 04/01/24 15:35 NM [id number]) OP Gait Assessment Gait Gait Assistance Required: Independent Distance (Feet) 150 Assistive Devices Assistive Device None Gait Deviations General Gait Pattern Antalgic Factors Limiting Gait Function Factors Limiting Gait Function Decreased Activity Tolerance, Decreased Strength,Pain Stair Climbing Evaluation Evaluation Level of Assist On Stairs Standby Assistance Devices Stair Climbing Assistive Devices Right Railing Technique/Endurance Stair Climbing Direction Ascend and Descend Stair Climbing Technique Step Over Step Number of Steps Climbed 4 Stair Climbing Set # Repetitions (reps) 1 Comments Stair Climbing Comments Pain reported in knee; demos valgus and decreased stability while descending stairs PT-OP-J Posture/Palpation/Skin Start: 03/31/24 15:47 Freq: Status: Active Protocol: Document 04/01/24 07:28 NM (Rec: 04/01/24 15:35 NM [id number]) Posture Evaluation Position Standing Head/C-Spine Posture Forward Head L-Spine Posture Increased Lordosis Shoulder Posture (L) Rounded,(R) Rounded,(L) Elevated Pelvis Posture (L) ASIS Inferior Comments Posture Comments Scoliosis present; demos R truncal shift Palpation Assessment Location L knee Palpation Details Tenderness at L medial knee especially at joint line, pes anserine; present also around patella Palpable caldera's cyst at posteromedial knee, not tender but enlarged PT-OP-K Range of Motion Start: 03/31/24 15:47 Freq: Status: Active Protocol: Document 05/13/24 09:48 NM (Rec: 05/13/24 10:50 NM [id number]) Knee Goniometric Range of Motion Knee Right Flexion Active (degrees) 130 Extension Active (degrees) 5 Left Flexion Active (degrees) 130 Extension Active (degrees) 0 PT-OP-L Special Tests Start: 03/31/24 15:47 Freq: Status: Active Protocol: Document 04/01/24 07:28 NM (Rec: 04/01/24 15:35 NM [id number]) Special Tests Knee Special Tests Varus Test Results - Valgus Test Results - Luis Test Test Results - PT-OP-M Strength Start: 03/31/24 15:47 Freq: Status: Active Protocol: Document 05/13/24 09:48 NM (Rec: 05/13/24 10:50 NM [id number]) Knee Strength Knee Manual Muscle Testing Right Flexion (S2) 4- Good- Extension (L3) 4+ Good+ Left Flexion (S2) 4- Good- Extension (L3) 4 Good PT-OP-Q Treatments Start: 03/31/24 15:47 Freq: Status: Active Protocol: Document 05/15/24 08:10 AB (Rec: 05/15/24 10:57 AB [id number]) Therapeutic Exercises Supine Exercises SLR Supine Exercise Name HEP Side bilateral Resistance 2 lb cuff weight Reps/Minutes X10 each LE Comments monitored for pain HS stretch Supine Exercise Name HEP Side bilateral Equipment Used with strap (knee ext) Reps/Minutes 2x60 ea Comments post manual pre ex Prone Exercises hip flexor stretch Prone Exercise Name one LE on mat one off edge of mat, actively holding bent knee for 60 second Side bilateral Reps/Minutes 60 seconds each LE Comments verbal and visual cues Sitting Exercises long arc quad Sitting Exercise Name banded version added to HEP Side bilateral Resistance 2# cuff wt, 10 w/ level 2 band at ankles Reps/Minutes 10 ea w/ cuff, 10 w/ band Comments full TKE Standing Exercises side stepping with band Standing Exercise Name close supervision, near mat at counter height Side bilateral Resistance level 2 band above ankles Reps/Minutes 8 feet left and right X 4 Comments verbal cues to avoid toeing out Manual Therapy Treatment Soft Tissue Mobilization L knee Body Location calf, HS, quad, add, pes anserine, hip flexor Mobilization Type Rolling,Sustained Pressure Intensity/Depth Moderate Body Position Hooklying Comments increased focus on HS this session Joint Mobilizations L knee Joint patellar; tibiofemoral jt Direction inf, sup, med, lat; PA and AP Grade II Body Position Supine Reps/Duration 10 ea direction patellar; 2x30 ea tibfem Comments Monitored for pain PT-OP-R Modalities Start: 03/31/24 15:47 Freq: Status: Active Protocol: Document 05/06/24 16:30 AB (Rec: 05/06/24 16:31 AB [id number]) Hot Pack/Cold Pack Treatment left knee Patient Position Hooklying Comments 10 min PT-OP-T Assessment and Plan Start: 03/31/24 15:47 Freq: Status: Active Protocol: Document 05/15/24 08:10 AB (Rec: 05/15/24 10:57 AB [id number]) Physical Therapy Assessment Goals Four Impairment ambulation impaired Produce Associate Goal (LTG) Pt will report that she is able to ambulate up [place] with <5/10 knee pain, if appropriate, to return to PLOF 05/13/24: pt reports 3/10 pain in knee when ambulating up [place] LTG Duration 10 weeks PROGRESSING, MET Three Impairment pain with stairs and hills Short Term Goal (STG) Pt will report that she is able to descend stairs using reciprocal pattern with or without handrail and <5/10 L knee pain in order to demonstrate improved strength and flexibility during household mobility STG Duration 7 weeks Produce Associate Goal (LTG) Pt will report that she is able to descend stairs using reciprocal pattern with or without handrail and no increase in L knee pain in order to demonstrate improved strength and flexibility during household mobility 05/01/24 Patient reports able to descend stairs with a reciprocal pattern without pain using rails. 05/13/24: 8 stairs w/ handrail on descent using reciprocal, no pain in knees LTG Duration 10 weeks MET 05/13/24 Two Impairment STS & transfers (5x STS 13 sec , 30 STS 10) Skilled Nursing Goal (LTG) Pt will be able to perform at least 12 STS in 30 from standard chair in order to demonstrate improved BLE strength and meet age-related strength/endurance goals 05/13/24: 14 from 18 chair LTG Duration 10 weeks PROGRESSING 05/13/24 One Impairment not performing HEP Produce Associate Goal (LTG) Pt will report IND at least 3x /wk in order to maximize progression with PT and transition to maintenance program upon discharge 05/11/24: compliant with HEP daily LTG Duration 10 weeks MET Assessment Summary Assessment Lauren reports having no pain end of session left knee, comments hip muscles are sore. Physical Therapy Plan Frequency and Duration Frequency of Treatment 2x/Week Duration of treatment (weeks) 10 Plan of Care Start Date 04/01/24 Plan of Care End Date 06/13/24 Next Visit Focus/Plan Next Note Type Treatment Note Next Visit Plan Trial side steps vs standing hip abduction with band. Trial adding band to hip ext in standing. progress STS, Add step up 4-6 depending on tolerance with emphasis on control. Manual: STM to L knee, joint mobilizations as needed
--- NOTE | 2024-05-20 10:36 | PT.OTN ---
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 She reports that she has scoliosis , hx of breaking L leg in a skiing accident at age 40; her LLE is shorter than her RLE. Wears a heel lift. Her knee has been bothering her since January 2024 when she stepped down hard on her L knee, which tweaked it. Reports that it was improving but states that her knee is still bothering, getting worse. Yard work bothers her, especially with standing and bending over with RLE backward. No hx of falls. Pt reports difficulty with going downstairs (less pain with going upstairs) via step- to pattern, sitting too long, walking especially on hills ( [facility], [facility]), gardening/yard work. Pt has stairs in her home, 10 stairs with 1 rail. Pt is retired. Prior Treatments and Tests No xrays Treatment Goals Patient/Caregiver Goals walk up [facility] without pain Current Functional Impairments (Reported) Functional Limitations- Recreation/ gardening Hobbies PT-OP-C Subjective Start: 03/31/24 15:47 Freq: Status: Active Protocol: Document 05/20/24 08:12 AB (Rec: 05/20/24 10:36 AB [id number]) OP-PT Subjective Patient Comments Patient Comments Patient rates knee pain 2/10 with some of the exercises. Patient reports having no pain with stairs. Lacking 3 deg ext to 136 deg flexion AROM left knee start of session. PT-OP-E Functional Tests Start: 03/31/24 15:47 Freq: Status: Active Protocol: Document 04/01/24 07:28 NM (Rec: 04/01/24 08:16 NM [id number]) Functional Tests 30 Second Sit to Stand Test Score 10 Comments standard chair; knee pain, fatigues at 20 sec Five Times Sit to Stand Test Score 13 Comments standard chair PT-OP-F Manual Assessment Start: 03/31/24 15:47 Freq: Status: Active Protocol: Document 04/01/24 07:28 NM (Rec: 04/01/24 08:16 NM [id number]) Manual Assessments Soft Tissue Assessment Soft Tissue Mobility Assessment caldera's cyst behind R knee, very palpable Joint Mobility Assessment Joint Mobility Assessment ext joint play present passively L knee increased bony present at L medial and lateral knee L patella is elevated and medially tilted PT-OP-G Mobility & Gait Start: 03/31/24 15:47 Freq: Status: Active Protocol: Document 04/01/24 07:28 NM (Rec: 04/01/24 15:35 NM [id number]) OP Gait Assessment Gait Gait Assistance Required: Independent Distance (Feet) 150 Assistive Devices Assistive Device None Gait Deviations General Gait Pattern Antalgic Factors Limiting Gait Function Factors Limiting Gait Function Decreased Activity Tolerance, Decreased Strength,Pain Stair Climbing Evaluation Evaluation Level of Assist On Stairs Standby Assistance Devices Stair Climbing Assistive Devices Right Railing Technique/Endurance Stair Climbing Direction Ascend and Descend Stair Climbing Technique Step Over Step Number of Steps Climbed 4 Stair Climbing Set # Repetitions (reps) 1 Comments Stair Climbing Comments Pain reported in knee; demos valgus and decreased stability while descending stairs PT-OP-J Posture/Palpation/Skin Start: 03/31/24 15:47 Freq: Status: Active Protocol: Document 04/01/24 07:28 NM (Rec: 04/01/24 15:35 NM [id number]) Posture Evaluation Position Standing Head/C-Spine Posture Forward Head L-Spine Posture Increased Lordosis Shoulder Posture (L) Rounded,(R) Rounded,(L) Elevated Pelvis Posture (L) ASIS Inferior Comments Posture Comments Scoliosis present; demos R truncal shift Palpation Assessment Location L knee Palpation Details Tenderness at L medial knee especially at joint line, pes anserine; present also around patella Palpable caldera's cyst at posteromedial knee, not tender but enlarged PT-OP-K Range of Motion Start: 03/31/24 15:47 Freq: Status: Active Protocol: Document 05/13/24 09:48 NM (Rec: 05/13/24 10:50 NM [id number]) Knee Goniometric Range of Motion Knee Right Flexion Active (degrees) 130 Extension Active (degrees) 5 Left Flexion Active (degrees) 130 Extension Active (degrees) 0 PT-OP-L Special Tests Start: 03/31/24 15:47 Freq: Status: Active Protocol: Document 04/01/24 07:28 NM (Rec: 04/01/24 15:35 NM [id number]) Special Tests Knee Special Tests Varus Test Results - Valgus Test Results - Luis Test Test Results - PT-OP-M Strength Start: 03/31/24 15:47 Freq: Status: Active Protocol: Document 05/13/24 09:48 NM (Rec: 05/13/24 10:50 NM [id number]) Knee Strength Knee Manual Muscle Testing Right Flexion (S2) 4- Good- Extension (L3) 4+ Good+ Left Flexion (S2) 4- Good- Extension (L3) 4 Good PT-OP-Q Treatments Start: 03/31/24 15:47 Freq: Status: Active Protocol: Document 05/20/24 08:12 AB (Rec: 05/20/24 10:36 AB [id number]) Gym Equipment Shuttle Recovery bilateral Details trial 50 too easy 75 too hard per patient Resistance 62# navy Reps/Time X15 Therapeutic Exercises Prone Exercises hip flexor stretch Prone Exercise Name one LE on mat one off edge of mat, actively holding bent knee for 60 second Side bilateral Reps/Minutes 60 seconds each LE Comments verbal and visual cues Sitting Exercises long arc quad Sitting Exercise Name banded version added to HEP Side bilateral Resistance level 2 band Reps/Minutes X10 Comments full TKE, monitored for pain HS stretch Sitting Exercise Name with slight trunk flexion Side bilateral Reps/Minutes 60 ea Hamstring curl Side bilateral Resistance level 3 band Reps/Minutes x10 Comments cues form and set up Standing Exercises step ups Standing Exercise Name 6 inch step Side bilateral Reps/Minutes X10 each LE Comments Monitored for pain hip extension Standing Exercise Name upper body resting on mat at counter height ( with pillows) Side bilateral Resistance level 2 band above ankles Reps/Minutes X15 each Comments Verbal cues for avoiding ext lumbar spine Manual Therapy Treatment Consent Patient gave verbal consent for manual Yes treatment Soft Tissue Mobilization L knee Body Location calf, HS, quad, add, pes anserine, hip flexor Mobilization Type Rolling,Sustained Pressure Intensity/Depth Moderate Body Position Hooklying Comments increased focus on HS this session PT-OP-R Modalities Start: 03/31/24 15:47 Freq: Status: Active Protocol: Document 05/06/24 16:30 AB (Rec: 05/06/24 16:31 AB [id number]) Hot Pack/Cold Pack Treatment left knee Patient Position Hooklying Comments 10 min PT-OP-T Assessment and Plan Start: 03/31/24 15:47 Freq: Status: Active Protocol: Document 05/20/24 08:12 AB (Rec: 05/20/24 10:36 AB [id number]) Physical Therapy Assessment Goals Four Impairment ambulation impaired Major Assembly Lineman Goal (LTG) Pt will report that she is able to ambulate up [place] with <5/10 knee pain, if appropriate, to return to PLOF 05/13/24: pt reports 3/10 pain in knee when ambulating up [place] LTG Duration 10 weeks PROGRESSING, MET Three Impairment pain with stairs and hills Short Term Goal (STG) Pt will report that she is able to descend stairs using reciprocal pattern with or without handrail and <5/10 L knee pain in order to demonstrate improved strength and flexibility during household mobility STG Duration 7 weeks Intermediate Goal (LTG) Pt will report that she is able to descend stairs using reciprocal pattern with or without handrail and no increase in L knee pain in order to demonstrate improved strength and flexibility during household mobility 05/01/24 Patient reports able to descend stairs with a reciprocal pattern without pain using rails. 05/13/24: 8 stairs w/ handrail on descent using reciprocal, no pain in knees LTG Duration 10 weeks MET 05/13/24 Two Impairment STS & transfers (5x STS 13 sec , 30 STS 10) Major Assembly Lineman Goal (LTG) Pt will be able to perform at least 12 STS in 30 from standard chair in order to demonstrate improved BLE strength and meet age-related strength/endurance goals 05/13/24: 14 from 18 chair LTG Duration 10 weeks PROGRESSING 05/13/24 One Impairment not performing HEP Major Assembly Lineman Goal (LTG) Pt will report IND at least 3x /wk in order to maximize progression with PT and transition to maintenance program upon discharge 05/11/24: compliant with HEP daily LTG Duration 10 weeks MET Assessment Summary Assessment Lauren reports having a little soreness in the quad muscles LE with long arc quad with band, and on 5th rep of 6 inch step up bilateral knees, per patient very little pain. End of session Lauren reports having no pain, feels good. Physical Therapy Plan Frequency and Duration Frequency of Treatment 2x/Week Duration of treatment (weeks) 10 Plan of Care Start Date 04/01/24 Plan of Care End Date 06/13/24 Next Visit Focus/Plan Next Note Type Treatment Note Next Visit Plan Trial side steps vs standing hip abduction with band. Trial adding band to hip ext in standing to HEP. progress STS, Add step up 4-6 depending on tolerance with emphasis on control. Possibly trial of HS and quads on PD unit to prepare for possibility of using a gym. Manual: STM to L knee, joint mobilizations as needed
--- NOTE | 2024-05-22 10:33 | PT.OTN ---
Current Diagnoses Pain in left knee (05/22/24) Stiffness of left knee, not elsewhere classified (05/22/24) Other lack of coordination (05/22/24) Weakness (05/22/24) Physical Therapy Treatment Note PT-OP-A Visit Information Start: 03/31/24 15:47 Freq: Status: Active Protocol: Document 05/22/24 09:49 NM (Rec: 05/22/24 10:31 NM [id number]) Out-Patient Physical Therapy Visit Information Visit Information Visit Type Treatment Note Visit Note KX after 19 visits Visit Start Time 09:50 Visit Stop Time 10:30 Visit Number 10 Evaluation Information Evaluation Date 04/01/24 Precautions Precautions caldera's cyst PT-OP-B Current Condition Start: 03/31/24 15:47 Freq: Status: Active Protocol: Document 04/01/24 07:28 NM (Rec: 04/01/24 08:16 NM [id number]) Current Condition History of Current Condition Onset Date 2 months ago History of Current Condition Pt presents with L knee pain, occasional R knee pain. She reports that she has scoliosis , hx of breaking L leg in a skiing accident at age 40; her LLE is shorter than her RLE. Wears a heel lift. Her knee has been bothering her since January 2024 when she stepped down hard on her L knee, which tweaked it. Reports that it was improving but states that her knee is still bothering, getting worse. Yard work bothers her, especially with standing and bending over with RLE backward. No hx of falls. Pt reports difficulty with going downstairs (less pain with going upstairs) via step- to pattern, sitting too long, walking especially on hills ( [facility], [facility], [facility]), gardening/yard work. Pt has stairs in her home, 10 stairs with 1 rail. Pt is retired. Prior Treatments and Tests No xrays Treatment Goals Patient/Caregiver Goals walk up [place] without pain Current Functional Impairments (Reported) Functional Limitations- Recreation/ gardening Hobbies PT-OP-C Subjective Start: 03/31/24 15:47 Freq: Status: Active Protocol: Document 05/22/24 09:49 NM (Rec: 05/22/24 10:31 NM [id number]) OP-PT Subjective Patient Comments Patient Comments Pt reports that her knee continues to improve. She reports she is ready to be done with PT today. Forgot to bring her exercises. Overall, reports that her pain levels are improved. Pt saw Dr. Grove on Sunday, all going well. PT-OP-E Functional Tests Start: 03/31/24 15:47 Freq: Status: Active Protocol: Document 04/01/24 07:28 NM (Rec: 04/01/24 08:16 NM [id number]) Functional Tests 30 Second Sit to Stand Test Score 10 Comments standard chair; knee pain, fatigues at 20 sec Five Times Sit to Stand Test Score 13 Comments standard chair PT-OP-F Manual Assessment Start: 03/31/24 15:47 Freq: Status: Active Protocol: Document 04/01/24 07:28 NM (Rec: 04/01/24 08:16 NM [id number]) Manual Assessments Soft Tissue Assessment Soft Tissue Mobility Assessment caldera's cyst behind R knee, very palpable Joint Mobility Assessment Joint Mobility Assessment ext joint play present passively L knee increased bony present at L medial and lateral knee L patella is elevated and medially tilted PT-OP-G Mobility & Gait Start: 03/31/24 15:47 Freq: Status: Active Protocol: Document 04/01/24 07:28 NM (Rec: 04/01/24 15:35 NM [id number]) OP Gait Assessment Gait Gait Assistance Required: Independent Distance (Feet) 150 Assistive Devices Assistive Device None Gait Deviations General Gait Pattern Antalgic Factors Limiting Gait Function Factors Limiting Gait Function Decreased Activity Tolerance, Decreased Strength,Pain Stair Climbing Evaluation Evaluation Level of Assist On Stairs Standby Assistance Devices Stair Climbing Assistive Devices Right Railing Technique/Endurance Stair Climbing Direction Ascend and Descend Stair Climbing Technique Step Over Step Number of Steps Climbed 4 Stair Climbing Set # Repetitions (reps) 1 Comments Stair Climbing Comments Pain reported in knee; demos valgus and decreased stability while descending stairs PT-OP-J Posture/Palpation/Skin Start: 03/31/24 15:47 Freq: Status: Active Protocol: Document 04/01/24 07:28 NM (Rec: 04/01/24 15:35 NM [id number]) Posture Evaluation Position Standing Head/C-Spine Posture Forward Head L-Spine Posture Increased Lordosis Shoulder Posture (L) Rounded,(R) Rounded,(L) Elevated Pelvis Posture (L) ASIS Inferior Comments Posture Comments Scoliosis present; demos R truncal shift Palpation Assessment Location L knee Palpation Details Tenderness at L medial knee especially at joint line, pes anserine; present also around patella Palpable caldera's cyst at posteromedial knee, not tender but enlarged PT-OP-K Range of Motion Start: 03/31/24 15:47 Freq: Status: Active Protocol: Document 05/22/24 09:49 NM (Rec: 05/22/24 10:31 NM [id number]) Knee Goniometric Range of Motion Knee Right Flexion Active (degrees) 130 Extension Active (degrees) 5 Left Flexion Active (degrees) 130 Extension Active (degrees) 0 PT-OP-L Special Tests Start: 03/31/24 15:47 Freq: Status: Active Protocol: Document 04/01/24 07:28 NM (Rec: 04/01/24 15:35 NM [id number]) Special Tests Knee Special Tests Varus Test Results - Valgus Test Results - Luis Test Test Results - PT-OP-M Strength Start: 03/31/24 15:47 Freq: Status: Active Protocol: Document 05/22/24 09:49 NM (Rec: 05/22/24 10:31 NM [id number]) Knee Strength Knee Manual Muscle Testing Right Flexion (S2) 4- Good- Extension (L3) 4+ Good+ Left Flexion (S2) 4- Good- Extension (L3) 4 Good PT-OP-Q Treatments Start: 03/31/24 15:47 Freq: Status: Active Protocol: Document 05/22/24 09:49 NM (Rec: 05/22/24 10:31 NM [id number]) Therapeutic Exercises Supine Exercises SLR Supine Exercise Name HEP review Side bilateral Resistance 2# ankle wt Reps/Minutes 10 Prone Exercises hip flexor stretch Prone Exercise Name one LE on mat one off edge of mat, actively holding bent knee for 60 second Side bilateral Reps/Minutes 60 seconds each LE Comments verbal and visual cues Sitting Exercises long arc quad Sitting Exercise Name banded version added to HEP Side bilateral Resistance level 3 band trialed Reps/Minutes 15 Comments full TKE, monitored for pain HS stretch Sitting Exercise Name with slight trunk flexion Side bilateral Reps/Minutes 2x60 ea Sit to stand Sitting Exercise Name 1. 30 sec STS, 2. STS HEP review Side bilateral Resistance level 3 band at thighs Equipment Used std chair Reps/Minutes 1. 12, 2. 10 Standing Exercises hamstring curl Standing Exercise Name kick your butt- addd to HEP Side bilateral Resistance level 2 band at ankles Equipment Used B hand support on bars for balance Reps/Minutes 2x10 ea Comments minimal height side stepping with band Standing Exercise Name close supervision, near mat at counter height Side bilateral Resistance level 3 band at thighs > ankles Equipment Used prn hand support for balance on bar Reps/Minutes 3x25 ft ea dreiction Comments verbal cues to avoid toeing out PT-OP-R Modalities Start: 03/31/24 15:47 Freq: Status: Active Protocol: Document 05/06/24 16:30 AB (Rec: 05/06/24 16:31 AB [id number]) Hot Pack/Cold Pack Treatment left knee Patient Position Hooklying Comments 10 min PT-OP-T Assessment and Plan Start: 03/31/24 15:47 Freq: Status: Active Protocol: Document 05/22/24 09:49 NM (Rec: 05/22/24 10:31 NM [id number]) Physical Therapy Assessment Goals Four Impairment ambulation impaired Economics Instructor Goal (LTG) Pt will report that she is able to ambulate up [facility] with <5/10 knee pain, if appropriate, to return to [place] 05/13/24: pt reports 3/10 pain in knee when ambulating up [facility] 05/22/24: weather preventing pt from hiking [facility]; however, has been ambulating/hiking [place] if present LTG Duration 10 weeks MET Three Impairment pain with stairs and hills Short Term Goal (STG) Pt will report that she is able to descend stairs using reciprocal pattern with or without handrail and <5/10 L knee pain in order to demonstrate improved strength and flexibility during household mobility STG Duration 7 weeks [facility] Goal (LTG) Pt will report that she is able to descend stairs using reciprocal pattern with or without handrail and no increase in L knee pain in order to demonstrate improved strength and flexibility during household mobility 05/01/24 Patient reports able to descend stairs with a reciprocal pattern without pain using rails. 05/13/24: 8 stairs w/ handrail on descent using reciprocal, no pain in knees LTG Duration 10 weeks MET 05/13/24 Two Impairment STS & transfers (5x STS 13 sec , 30 STS 10) [facility] Goal (LTG) Pt will be able to perform at least 12 STS in 30 from standard chair in order to demonstrate improved BLE strength and meet age-related strength/endurance goals 05/13/24: 14 from 18 chair 05/22/24: 12 in 30 seconds from standard chair LTG Duration 10 weeks MET One Impairment not performing HEP Economics Instructor Goal (LTG) Pt will report IND at least 3x /wk in order to maximize progression with PT and transition to maintenance program upon discharge 05/11/24: compliant with HEP daily LTG Duration 10 weeks MET Assessment Summary Assessment Pt tolerated session well. No knee pain during exercises. Established maintenance program for carryover after discussion about discharge with pt. Minimal cueing needed for set up only. Progressed resistance for LAQ and resisted stepping. Trialed standing hamstring curl to progress from seated curls for improved push off during gait . Physical Therapy Plan Frequency and Duration Frequency of Treatment 2x/Week Duration of treatment (weeks) 10 Plan of Care Start Date 04/01/24 Plan of Care End Date 06/13/24 Therapeutic Interventions Therapeutic Interventions Balance Training,Coordination Training,Gait Training,Home Exercise Program,Joint Mobilizations,Manual Therapy, Neuromuscular Re-education, Orthotic/Prosthetic Management ,Patient/Caregiver Education, Self-Care/Home Management, Sensory Integration,Soft Tissue Mobilization,Taping, Therapeutic Activities, Therapeutic Exercises Modalities Cold Pack/Ice Massage,Electric Stimulation,Hot Packs, Ultrasound Discharge Physical Therapy Discharge Reasons Goals Met Discharge Comments PT and pt discussed discharge from PT today as all goals met . PT educated pt on performing maintenance program 3x/wk for at least 6 months. If symptoms return, change, or worsent, then recommend follow up with PCP or specialist if knee pain returns and for assessment of caldera's cyst, or for new PT referral. Pt verbalizes understanding and will be discharged from PT. Next Visit Focus/Plan Next Note Type Discharge Summary Next Visit Plan discharge from PT
== END 2024-05-28 14:31 | disposition home or self-care (01) ==
LOC: PHYS 09:45
PROVIDERS: Family Provider Internal Medicine; PCP Internal Medicine; Referring Provider Internal Medicine; Visit Provider Internal Medicine
DX: M25.562 Pain in left knee (principal); M25.662 Stiffness of left knee, not elsewhere classified; R53.1 Weakness; R27.8 Other lack of coordination
CPT/HCPCS: 97110; 97140; 97161

== ENCOUNTER → 2024-06-06 10:07 | Outpatient (CLI) | payer MEDICARE, OTHER, SELFPAY ==
--- NOTE | 2024-06-06 10:08 | DI.RAD.S_ITS ---
PROCEDURE: XR DEXA AXIAL SKELETON INDICATIONS: osteopenia COMPARISON: [facility], , XR DEXA AXIAL SKELETON, 05/31/2022, 11:26. FINDINGS: Lumbar Spine (L4 excluded due to increased density): Bone mineral density 0.717 g/cm2, T score -2.7, statistically decreased by 6 percent. Left Femoral Neck: Bone mineral density 0.572 g/cm2, T score - 2.5. Left Hip: Bone mineral density 0.744 g/cm2, T score -1.6, statistically decreased by 5 percent. Fracture Risk Calculation (when applicable): Not reported due to osteoporosis diagnosis. (T score greater or equal to -1.0 to: NORMAL) (T score from -1.1 to -2.4: OSTEOPENIA) (T score less than or equal to -2.5: OSTEOPOROSIS) IMPRESSION: Osteoporosis. Statistically decreased bone mineralization. Follow-up guidelines as follows: Osteoporosis: Consider a repeat DEXA and Vertebral Fracture Assessment (VFA) exam in 2 years or sooner if medically necessary, to reassess this patient's status. Osteopenia: Consider a repeat DEXA in 2-3 years to reassess this patient's status, or if there is a new clinical indication. Normal: Consider a repeat DEXA in 5 years or sooner, or if there is a new clinical indication. All treatment decisions require clinical judgment and consideration of individual patient factors, including patient preferences, comorbidities, previous drug use, risk factors not captured in the FRAX model (e.g., frailty, falls, vitamin D deficiency, increased bone turnover, interval significant decline in bone density ) and possible under- or over-estimation of fracture risk by FRAX. In addition, the NOF Guide recommends that FDA-approved medical therapies be considered in postmenopausal women and men age >= 50 years with a: * Hip or vertebral (clinical or morphometric) fracture * T-score of <=-2.5 at the spine or hip * Ten-year fracture probability by FRAX of >= 3% for hip fracture or >=20% for major osteoporotic fracture. Dictated by: Nilay Nayak M.D. on 06/06/2024 at 12:10 Approved by: Nilay Nayak M.D. on 06/06/2024 at 12:13
== END ==
PROVIDERS: Family Provider Internal Medicine; PCP Internal Medicine; Referring Provider Internal Medicine; Visit Provider Internal Medicine
DX: M81.0 Age-related osteoporosis without current pathological fracture (principal)
CPT/HCPCS: 77080

== ENCOUNTER → 2024-08-14 09:16 | Outpatient (CLI) | payer MEDICARE, OTHER, SELFPAY ==
[2024-08-14 10:27] LABS: Alanine Aminotransferase 19 IU/L (<35); Albumin Globulin Ratio 1.6 (1.0-2.8); Alkaline Phosphatase 55 U/L (38-126); Aspartate Aminotransferase 33 IU/L (14-36); BUN Creatinine Ratio 23.9 (6-22); Bilirubin Total 0.6 mg/dL (0.2-1.3); Blood Urea Nitrogen 17 mg/dL (7-17); Calcium 9.4 mg/dL (8.4-10.2); Carbon Dioxide 30 mmol/L (22-32); Chloride 103 mmol/L (98-107); Cholesterol 178 mg/dL (140-199); Estimated Glomerular Filt Rate > 60 mL/min (>60); Globulin 2.5 g/dL (1.7-4.1); Glucose 96 mg/dL (80-110); HDL Cholesterol 88 mg/dL (40-60); HEMOLYSIS < 15 (0-50); LDL Cholesterol Calculated 78 mg/dL (<100); Potassium 3.8 mmol/L (3.4-5.1); Sodium 138 mmol/L (137-145); Total Protein 6.5 g/dL (6.3-8.2); Triglycerides 62 mg/dL (35-150)
[2024-08-14 10:42] LABS: Free T4, Direct Thyroxine 1.49 ng/dL (0.78-2.19)
[2024-08-14 10:55] LABS: Thyroid Stimulating Hormone 1.32 uIU/mL (0.47-4.68)
== END ==
PROVIDERS: Family Provider Internal Medicine; PCP Internal Medicine; Referring Provider Internal Medicine; Visit Provider Internal Medicine
DX: E03.9 Hypothyroidism, unspecified (principal); I10 Essential (primary) hypertension; E78.2 Mixed hyperlipidemia
CPT/HCPCS: 36415; 80053; 80061; 84439; 84443

== ENCOUNTER → 2025-03-28 11:01 | Outpatient (CLI) | payer MEDICARE, OTHER, SELFPAY ==
--- NOTE | 2025-03-28 11:05 | DI.MG.S_ITS ---
MM screening mammo BI: 03/28/2025. BI-RADS: 2 CLINICAL: 80-year old female for bilateral screening mammogram. Tyrer-Cuzick lifetime risk of 0.7%. No personal or first-degree family history of breast cancer. The patient had a prior left breast biopsy. PRIOR EXAMS 02/13/2024, 01/11/2023, 01/03/2022, 12/30/2020. MAMMOGRAPHY TECHNIQUE: 2D and 3D (tomosynthesis) digital mammographic views obtained, with additional images as needed for full coverage. Current study was also evaluated with a Computer Aided Detection (CAD) system. DENSITY C. The breasts are heterogeneously dense, which may obscure small masses. MAMMOGRAPHY FINDINGS Right: No suspicious mass, asymmetry, microcalcification, or other abnormality seen. Left: Biopsy marker present on the left. There are no suspicious masses, calcifications, or other findings in the breast. IMPRESSION: Right * No evidence of malignancy. Left * No evidence of malignancy with benign findings. RECOMMENDATIONS Bilateral * Annual screening mammography. OVERALL ASSESSMENT CATEGORY BI-RADS-2: Benign. The [employer] recommends annual screening mammography beginning at age 40 for women with average risk of breast cancer. ELECTRONICALLY SIGNED: Karolyn Anna M.D. on 03/30/2025 at 03:33:13 PM PT Interpreting Station ID: [id number]
== END ==
LOC: MAMMO 11:09
PROVIDERS: Family Provider Internal Medicine; PCP Internal Medicine; Referring Provider Internal Medicine; Visit Provider Internal Medicine
DX: Z12.31 Encounter for screening mammogram for malignant neoplasm of breast (principal); R92.333 Mammographic heterogeneous density, bilateral breasts
CPT/HCPCS: 77063; 77067